=== PATIENT | female | born 1955 | race African-American/Black ===

== ENCOUNTER → 2016-05-24 | Outpatient (CLI) | payer OTHER ==
[2015-08-26 17:00] VITALS: BP 135/82
[~2016-05-24] MED LIST: ASPI-482 PO; BUPIVACAINE MPF 0.5% 10 ML VIAL for KCIC. IJ ONE; CIPR250T30 PO; CRESTOR20 MG PO; DOCU100C PO; ESOM40CA PO; FURO40TA4 PO; GABA-586 PO; INSU100C SQ; INSU100V13 SQ; IOHEXOL 300 MG/ML 50 ML VIAL. INT ART ONE; LIDOCAINE 1% Multi-Dose 20 ML VIAL. IJ ONE; LORA10CA PO; MAGN400T3 PO; MECL-51 PO; METF10002 PO; METO25TA2 PO; METR500T4 PO; OXYC-250 PO; OXYC80TA16 PO; PARI1CAP PO; POTA25TA4 PO; ROPI0.5T PO; TRAZ50TA15 PO; methylPREDNISolone ACETATE 40 MG/ML VIAL. INT ART ONE
--- NOTE | 2016-05-24 16:37 | KCIC ---
Fluoro Guided Therapeutic injection right hip. History: Reason For Study Reason: CHRONIC PAIN RT HIP / Spl. Instructions: FT 4:08 1 IMG, 2ML DEPOMEDROL, 4ML OMNI 300, 4ML MARCAINE, 4ML LIDOCAINE / History: Fluoroscopy time: 4:08 minutes Relative benefits risks and alternatives to the procedure were discussed and verbal and written informed consent was obtained. The patient was carefully prepped and draped in a sterile fashion. Lidocaine was used for local anesthesia. A 22-gauge spinal needle was advanced to the level of the hip joint at the femoral neck. Four cc of Omni 300 contrast was injected which showed the intra-articular location of the needle. The patient was then injected with 4 cc of Ropivacaine and 1 cc of Depo-Medrol. Digital image was obtained showing contrast in the joint. Impression: Therapeutic injection of the right hip. Electronically signed by: Pedro Boothe (May 24, 2016 16:36:11)
== END | disposition home or self-care (01) ==
LOC: KCIC 12:16
PROVIDERS: ATTEND Internal Medicine
DX: M25.551 Pain in right hip (principal); G89.29 Other chronic pain
CPT/HCPCS: 20610; 77002; J1030; Q9967

== ENCOUNTER → 2016-08-06 | Day surgery (SDC) | payer OTHER ==
[~2016-08-06] MED LIST changes: -BUPIVACAINE MPF 0.5% 10 ML VIAL for KCIC. IJ ONE; +DICY10CA53 PO; +DOCU-109 PO; +DOCU-150 PO; -DOCU100C PO; +DOXY100T9 PO; +ERGO500027 PO; +FAMO40TA57 PO; +FLUT9.9S NS; -IOHEXOL 300 MG/ML 50 ML VIAL. INT ART ONE; +IV RINGERS,LACTATED 1000ML 1,000 ML IV SCH; -LIDOCAINE 1% Multi-Dose 20 ML VIAL. IJ ONE; +LIDOCAINE 2% PF Vial for OR 5 ML VIAL. ONE; +LIRA0.6P2 SQ; +METF-620 PO; -METF10002 PO; +METO25TA9 PO; -METR500T4 PO; +METR500T8 PO; -OXYC-250 PO; +OXYC-328 PO; +PANT40TA3 PO; +PROPOFOL 20 ML IV ONE; -methylPREDNISolone ACETATE 40 MG/ML VIAL. INT ART ONE
--- NOTE | 2016-08-06 08:51 | PDOC1 ---
HISTORY & PHYSICAL H&P Nancy Aviles [id number] 1955 07/10/2016 02:40 PM 02/17 [employer], [employer] OUR PATIENTS COME FIRST [address] [place] [id number] Ph. [phone] Patient: Nancy Aviles Date of : 1955 Date: 07/10/2016 2:40 PM Historian: self Visit Type: Consult This 61 year old female presents for Altered bowel habits, Nausea/vomiting and Abdominal pain. History of Present Illness: 1. Altered bowel habits She is also experiencing abdominal pain, change in stool pattern and nausea. Pertinent negatives include weight gain and weight loss. Additional information : Had episode of diarrhea with several loose to runny BM for 2 weeks. Now has been constipated. She has underlying constipation. Has recurrent sever abdominal pain and nausea. 2. Nausea/vomiting Associated symptoms include abdominal pain and nausea. Pertinent negatives include weight loss. Additional information: Has frequent nausea. No vomiting. Has also recurrent abdominal pain.. 3. Abdominal pain It occurs randomly. Location is epigastric, midline. The patient describes it as bloating and sharp. Context: no pattern noted. Denies aggravating factors. Denies relieving factors. Additional information: Has frequent severe abdominal pain. Has also nausea. INTAKE COMMENTS: Intake Comments: Nurses Notes: Pt was having issues with Diarrhea now she has issues with constipation. PROBLEM LIST: Problem Description Onset Date Encounter for long-term (current) use of insulin 08/11/2014 Medicare advantage coverage 03/01/2013 Diabetes mellitus w/ neuropathy 06/12/2010 Urinary tract infectious disease 06/09/2012 Insulin use (long-term) in type 2 diabetes 08/11/2014 DM renal manif type II 08/11/2014 Slow transit constipation 09/15/2015 DM w/o complication type II, uncontrolled 08/11/2014 Generalized abdominal pain 09/15/2015 Acute bacterial sinusitis 07/05/2015 Restless legs 09/30/2011 Backache 09/30/2011 Type II or unspecified type diabetes mellitus with renal manifestations, uncontrolled 01/04/2015 Acute cystitis without hematuria 08/23/2015 Benign essential hypertension 06/12/2010 Hyperlipidemia 06/12/2010 Acquired hypothyroidism 06/12/2010 Obesity 06/12/2010 Chronic pain 06/12/2010 PAST MEDICAL/SURGICAL HISTORY (Detailed) Disease/disorder Onset Date Management Date Comments Arthrocentesis of the right shoulder joint Hysterectomy Carpal Tunnel Surgery Carpal tunnel release 2002 Arthrocentesis of the left shoulder joint Acute renal failure Arthiritis Arthritis cardiac cath 2009 normal coronaries CHF Chronic Back Syndrome Depression Diabetes DM Gastric ulcer 12/21/2010 EGD with biopsy 12/21/2010 Gastroparesis 12/21/2010 GERD Hiatal hernia 12/21/2010 Hyperlipidemia Hypertension kidney stones 2012 Mild Chronic Gastritis Mild gastritis 08/01/2011 mild stroke Morbid Obesity Osteoarthritis Renal disease Spider bite infection I & D 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 Gastroparesis. Hiatal hernia. BX: Hypertrophic gastropathy, stomach. 12/21/2010 CT ABDOMEN W/DYE 01/14/2011 Normal Imp: CT of the abdomen\\pelvis w\\IV contrast fails to reveal any significant abnormality. 01/14/2011 CT PELVIS W/DYE 01/14/2011 Normal Imp: CT of the abdomen\\pelvis w\\IV contrast fails to reveal any significant abnormality. 01/14/2011 UPPR GI SCOPE DILATE STRICTR 07/30/2011 abnormal Imp: Stenosis of the esophageal sphincter area of dilation done. Mild gastritis. 08/01/2011 Test Ordered Ordering Comments Modifier Colonoscopy 11/15/2008 Pt given written and verbal instructions with carol conde -CHAYITO EGD 11/15/2008 UPPER GI ENDOSCOPY, BIOPSY 12/21/[address] ABDOMEN W/DYE 01/14/[address] PELVIS W/DYE 01/14/2011 Gastroenterology UPPR GI SCOPE DILATE STRICTR 07/30/2011 Medications (Active): Started Medication Directions Instruction Stopped 06/03/2016 BENTYL 10 MG CAPSULE TAKE (1) CAPSULE BY MOUTH THREE TIMES DAILY. 01/11/2014 Colace 100 mg capsule take 1 capsule (100MG) by oral route every day 04/22/2016 Crestor 20 mg tablet TAKE ONE TABLET BY MOUTH DAILY. 05/22/2016 doxycycline hyclate 100 mg capsule take 1 capsule by oral route 2 times every day 02/01/2016 Flonase 50 mcg/actuation nasal spray,suspension spray 1 spray by intranasal route 2 times every day in each nostril 06/10/2016 HUMALOG 100 UNITS/ML KWIKPEN INJECT 40 UNITS SUBCUTANEOUSLY THREE TIMES DAILY 05/13/2016 LASIX 40MG TABLET TAKE (2) TABLETS BY MOUTH TWICE DAILY. 12/01/2015 LEVEMIR FLEXTOUCH 100 UNITS/ML INJECT 80 UNITS SUB-Q AT BEDTIME. 02/27/2016 LIDOCAINE OIN 5% APPLY 1-2 PUMPS (1 PUMP=1.5 GRAMS) TO THE AFFECTED AREA 3-4 TIMES DAILY 07/02/2016 LIDODERM 5% PATCH APPLY 1 PATCH TO SKIN DAILY. REMOVE AFTER 12 HOURS 06/26/2016 MAGOX 400 TABLET TAKE ONE TABLET BY MOUTH DAILY. 06/03/2016 MECLIZINE 25 MG TABLET TAKE (1) TABLET BY MOUTH THREE TIMES DAILY NEEDED 05/21/2016 NEURONTIN 300 MG CAPSULE TAKE (2) CAPSULES THREE TIMES DAILY. 11/18/2013 One Touch Delica Lancets 33 gauge CHECK BLOOD SUGARS QID AND NEEDED FOR DIABETES(250.02) 11/18/2013 One Touch Ultra System Kit CHECK BLOOD SUGARS TID AND NEEDED FOR DIABETES (250.02) 10/27/2015 OneTouch Ultra Test strips CHECK BLOOD SUGAR QID AND NEEDED FOR DIABETES (250.02) pt is insuline dependant 06/24/2016 OxyContin 80 mg tablet,crush resistant,extended release take 1 tablet by oral route every 12 hours 05/27/2016 PEPCID 40MG TAKE ONE TABLET DAILY AT BEDTIME 06/24/2016 Percocet 10 mg-325 mg tablet take 2 tablet by ORAL route every 6 hours as needed not to exceed 8 tablets per 24hrs 05/01/2016 POTASSIUM CL ER 20 MEQ TABLET TAKE (2) TABLETS BY MOUTH TWICE DAILY. 07/02/2016 PROTONIX 40 MG TABLET EC TAKE [1] TABLET BY MOUTH ONCE DAILY 05/27/2016 REQUIP 0.5 MG TABLET TAKE ONE TABLET 1 TO 3 HOURS BEFORE BEDTIME 05/16/2016 TOPROL XL 25 MG TABLET SA TAKE ONE TABLET BY MOUTH DAILY. 05/07/2016 TRAZODONE 50 MG TABLET TAKE 1 TABLET EVERY DAY AFTER A MEAL. 02/15/2016 VICTOZA 3-YANNA 18 MG/3 ML PEN INJECT 0.3 ML (1.8 MG) SUB-Q ONCE DAILY DIRECTED. 06/21/2016 VIT D2 1.25 MG (50,000 UNIT) TAKE 1 CAPSULE BY MOUTH "WEEKLY". 08/09/2015 Zyrtec 10 mg capsule take 1 each by oral route every day for 1 morning Allergies: Ingredient Reaction Medication Name Comment LISINOPRIL cough SULFA (SULFONAMIDE ANTIBIOTICS) itching, swelling PENICILLINS itch, swell ASPIRIN itching REVIEW OF SYSTEMS System Neg/Pos Details Constitutional Negative Chills, fever, malaise, weight gain and weight loss. ENMT Negative Sore throat. Eyes Negative Double vision. Respiratory Negative Dyspnea and wheezing. Cardio Negative Chest pain and irregular heartbeat/palpitations. GI Positive Abdominal pain, Change in stool pattern, Nausea, See HPI. GI Negative See HPI. Negative Dysuria and hematuria. Endocrine Negative Cold intolerance and heat intolerance. Psych Negative Anxiety. Integumentary Negative Hives and rash. MS Negative Joint pain. Scott/Lymph Negative Easy bleeding and easy bruising. Allergic/Immuno Negative Food allergies. VITAL SIGNS Time BP mm/Hg Pulse /min Resp /min Temp F Ht ft Ht in Ht cm Wt lb Wt kg BMI kg/ m2 BSA m2 O2 Sat% 2:33 PM 126/80 98 16 98.0 5.0 7.00 170.18 352.80 160.027 55.26 98 Time Measured by 2:33 PM Henny Turcios PHYSICAL EXAM: Exam Findings Details Constitutional Normal Well developed. Eyes Normal Conjunctiva - Right: Normal, Left: Normal. Sclera - Right: Normal, Left: Normal. Nasopharynx Normal Lips/teeth/gums - Normal. Neck Exam Normal Inspection - Normal. Thyroid gland - Normal. Respiratory Normal Inspection - Normal. Auscultation - Normal. Cardiovascular Normal Regular rate and rhythm. No murmurs, gallops, or rubs. Vascular Normal Pulses - Carotids: Normal, Femoral: Normal, Dorsalis pedis: Normal. Abdomen Normal Inspection - Normal. Anterior palpation - No guarding. No abdominal tenderness. No hepatic enlargement. No splenic enlargement. No hernia. No Ascites. Skin Normal Inspection - Normal. Extremity Normal No edema. Psychiatric Normal Oriented to time, place, person, and situation. Appropriate mood and effect. Assessment/Plan # Detail Type Description 1. Assessment Change in bowel habit (R19.4). Patient Plan schedule colonoscopy at [facility] Plan Orders Further diagnostic evaluations ordered today include(s) Colonoscopy to be performed today. 2. Assessment History of colon polyps (Z86.010). 3. Assessment Pain of upper abdomen (R10.10). Patient Plan schedule EGD at [facility] Plan Orders Further diagnostic evaluations ordered today include(s) EGD to be performed today. She is to schedule a follow-up visit with Cisco Waite MD upon completion of work-up Electronically signed by: Cisco Waite MD 07/10/2016 02:54 PM Document generated by: Cisco Waite 07/10/2016 02:54 PM Tacos Lorenzana MD, Family Practice; Chucho Blanco MD Internal Medicine; Sean Vera MD, Internal Medicine; Narendra Waite MD Internal Medicine; Cisco Waite MD, Gastroenterology; Pradeep Molina MD, Rheumatology, S. Jian Blount, Physical Medicine/Rehab JGlenda Darby APRN ------ 08/06/16 Patient seen and examined. No change in H&P. CISCO WAITE MD Aug 06, 2016 08:51
--- NOTE | 2016-08-06 10:25 | PDOC4 ---
GI OP Report - Dr. Caballero Date/Time DATE: 08/06/16 TIME: 10:23 Attending Physician Cisco Caballero MD Referring Physician Indications Upper abdominal pain, Nausea Pre-Op See the Anesthesia note for documentation of the administered medications Procedures Upper GI endoscopy Findings - Normal esophagus. - Normal stomach. - Normal examined duodenum. - No specimens collected. Plan - Patient has a contact number available for emergencies. The signs and symptoms of potential delayed complications were discussed with the patient. Return to normal activities tomorrow. Written discharge instructions were provided to the patient. - Discharge patient to home. - Resume regular diet. - Return to my office as needed. CISCO CABALLERO MD Aug 06, 2016 10:25
--- NOTE | 2016-08-06 10:34 | PDOC4 ---
GI OP Report - Dr. Caballero Date/Time DATE: 08/06/16 TIME: 10:32 Attending Physician Cisco Caballero MD Referring Physician Indications Change in bowel habits Pre-Op See the Anesthesia note for documentation of the administered medications Procedures Colonoscopy Findings - Two 5 to 6 mm polyps in the descending colon, removed with a cold snare. Resected and retrieved. Biopsied. - One 12 mm polyp in the rectum, removed with a hot snare. Resected and retrieved. - Diverticulosis in the sigmoid colon. Plan - Discharge patient to home (ambulatory). - Patient has a contact number available for emergencies. The signs and symptoms of potential delayed complications were discussed with the patient. Return to normal activities tomorrow. Written discharge instructions were provided to the patient. - Resume regular diet. - Continue present medications. - Await pathology results. - Repeat colonoscopy in 3 - 5 years for surveillance based on pathology results. - Return to my office in 2 weeks. CISCO CABALLERO MD Aug 06, 2016 10:34
[2016-08-06 10:45] VITALS: BP 119/60
--- NOTE | 2016-08-07 11:06 | PATHOLOGY ---
PATHOLOGY REPORT * * * * * * * * FINAL DIAGNOSIS: A. Colonic mucosa "polypectomy descending colon": - Fragments of tubular adenoma. - There is no evidence of high grade dysplasia or malignancy. B. Colonic mucosa "proximal rectum polyp, biopsy": - Tubular adenoma. - There is no evidence of high grade dysplasia or malignancy. ([facility]:mm; d/t: 08/07/2016) REPORT ELECTRONICALLY SIGNED BY: Sumeet Balderrama M.D. DATE/TIME: 08/07/2016 11:05 * * * * * * * * GROSS PATHOLOGY: A. Received in formalin labeled "Nancy Aviles, descending colon polyp," are two segments of troncoso soft tissue measuring 0.3 and 0.4 cm in maximum dimension. The specimen is submitted entirely in cassette A1. B. Received in formalin labeled "proximal rectum polyp," is a segment of troncoso soft tissue measuring 0.8 cm in maximum dimension. The specimen is submitted entirely in cassette B1. ([facility]; 08/06/16) INITIAL CPT CODE(S): A; 99136 B; 62160 Professional services performed [place] [address] Technical services performed by [facility] at [address] [place] [address] [address] [address]. SPECIMEN(S) RECEIVED: A.Polypectomy descending colon B.Proximal rectum polyp CLINICAL HISTORY: Abdominal pain PATIENT: NANCY AVILES /AGE: 5 1955 (Age: 61) PATIENT #: [id number] ALT CASE #: SPECIMEN COLLECTION DATE: 08/06/2016 SPECIMEN RECEIVED DATE: 08/06/2016 [facility] - [address] [place] [address] - PHONE: [phone] * * * END OF REPORT * * *
== END | disposition home or self-care (01) ==
LOC: ENDOS 08:20
PROVIDERS: ATTEND Internal Medicine Gastroenterology
DX: D12.4 Benign neoplasm of descending colon (principal); K62.1 Rectal polyp; K57.30 Diverticulosis of large intestine without perforation or abscess without bleeding; E78.00 Pure hypercholesterolemia, unspecified; I10 Essential (primary) hypertension; J44.9 Chronic obstructive pulmonary disease, unspecified; E66.9 Obesity, unspecified; Z68.44 Body mass index [BMI] 60.0-69.9, adult; K21.9 Gastro-esophageal reflux disease without esophagitis; M19.90 Unspecified osteoarthritis, unspecified site; E03.9 Hypothyroidism, unspecified; E11.9 Type 2 diabetes mellitus without complications; F41.9 Anxiety disorder, unspecified; F32.9 Major depressive disorder, single episode, unspecified; Z90.710 Acquired absence of both cervix and uterus; Z98.51 Tubal ligation status; Z87.39 Personal history of other diseases of the musculoskeletal system and connective tissue; Z72.89 Other problems related to lifestyle; Z86.14 Personal history of Methicillin resistant Staphylococcus aureus infection; Z88.6 Allergy status to analgesic agent; Z88.0 Allergy status to penicillin; Z88.2 Allergy status to sulfonamides
CPT/HCPCS: 45385; 82962; 88305; J2704

== ENCOUNTER 2016-10-09 19:45 | Emergency (ER) | payer OTHER ==
[~2016-10-09] VITALS: Ht 172.7 cm; Wt 166.0 kg
[~2016-10-09 19:45] MED LIST changes: -IV RINGERS,LACTATED 1000ML 1,000 ML IV SCH; -LIDOCAINE 2% PF Vial for OR 5 ML VIAL. ONE; -PROPOFOL 20 ML IV ONE
[2016-10-09 19:57] VITALS: BP 141/62
[2016-10-09] MEDS ORDERED: IV NORMAL SALINE 1000ML BAG 1,000 ML IV SCH (20:35)
[2016-10-09] MEDS ORDERED: ONDANSETRON PF 4 MG/2 ML VIAL. IV ONE (20:45)
[2016-10-09] MEDS ORDERED: MORPHINE SULFATE 4 MG/ML DISP.SYRIN. IV/SQ PRN (20:45)
[2016-10-09 20:47] LABS: BASO % 1 % (0-3); EOS % 1 % (0-3); HEMOGLOBIN 13.2 g/dL (12.0-15.5); LYMPH # 2.7 x10^3/uL (1.0-4.8); LYMPH % 38 % (24-48); MEAN CORPUSCULAR HEMOGLOBIN 33 pg (25-35); MEAN CORPUSCULAR HGB CONC 33 g/dL (31-37); MEAN CORPUSCULAR VOLUME 99 fL (79-100); MONO % 6 % (0-9); NEUT % 54 % (31-73); PLATELET COUNT 207 x10^3/uL (140-400); RED BLOOD COUNT 4.06 x10^6/uL (3.50-5.40); RED CELL DISTRIBUTION WIDTH 15.8 % (11.5-14.5); WHITE BLOOD COUNT 7.2 x10^3/uL (4.0-11.0)
[2016-10-09 20:49] LABS: BILIRUBIN,URINE NEGATIVE (NEG); GLUCOSE,URINE NEGATIVE (NEG); NITRITE,URINE NEGATIVE (NEG); PROTEIN,URINE NEGATIVE (NEG-TRACE); UROBILINOGEN,URINE 0.2 mg/dL (0.2 mg/dL)
[2016-10-09 20:55] LABS: BACTERIA,URINE MODERATE /HPF (0-FEW); RBC,URINE 0 /HPF (0-2); SQUAMOUS EPITHELIAL CELL,UR MOD /LPF
[2016-10-09 20:56] LABS: CREATININE 1.4 mg/dL (0.6-1.0); GFR 46.1; POTASSIUM 3.8 mmol/L (3.5-5.1)
--- NOTE | 2016-10-09 20:58 | PHYS DOC ---
Past Medical History Past Medical History: CHF, Diabetes-Type I, Hypertension Past Surgical History: Hysterectomy, Tubal ligation, Other Additional Past Surgical Histo: carpall tunnel Alcohol Use: Occasionally Drug Use: None Adult General Chief Complaint Chief Complaint: ABDOMINAL PAIN HPI HPI Patient is a 61 year old female who presents with complaint of right-sided flank pain. Patient states that the symptoms started approximately 2 months ago and have been progressively worsening over the past several days. Patient states that the pain originally started in her right flank but states that she has been having worsening problems with pain radiating towards her right low back since onset of symptoms. Patient has history of chronic low back pain and is currently on pain medications for treatment. Patient states that her pain typically worsens with walking and movement. Patient denies association of pain with bowel movement or urination. Patient has had no associated nausea, vomiting , or fever associated with her symptoms. The patient rates her pain currently as 9 out of 10. Review of Systems Review of Systems Constitutional: Denies fever or chills [] Eyes: Denies change in visual acuity, redness, or eye pain [] HENT: Denies nasal congestion or sore throat [] Respiratory: Denies cough or shortness of breath [] Cardiovascular: Denies chest pain or edema [] GI: Denies abdominal pain, nausea, vomiting, bloody stools or diarrhea [] : Denies dysuria or hematuria [] Musculoskeletal: Right flank pain, right-sided back pain [] Integument: Denies rash or skin lesions [] Neurologic: Denies headache, focal weakness or sensory changes [] Current Medications Current Medications Current Medications Medications (Trade) Dose Ordered Sig/Priyanka Start Time Stop Time Status Last Admin Dose Admin Morphine Sulfate 4 mg PRN Q15MIN PRN 10/09/16 20:45 10/10/16 20:44 10/09/16 20:52 4 MG Ondansetron HCl (Zofran) 4 mg 1X ONCE 10/09/16 20:45 10/09/16 20:46 DC 10/09/16 21:26 4 MG Sodium Chloride 1,000 ml @ 100 mls/hr Q10H 10/09/16 20:35 10/10/16 06:34 10/09/16 20:51 100 MLS/HR Allergies Allergies Allergies Coded Allergies Type Severity Reaction Last Updated Verified Penicillins Allergy Intermediate Itching 08/06/16 Yes Sulfa (Sulfonamide Antibiotics) Allergy Intermediate Itching/swelling 08/06/16 Yes aspirin Adverse Reaction Intermediate Itching/High doses only 08/06/16 Yes lisinopril Adverse Reaction Intermediate Cough 08/06/16 Yes Physical Exam Physical Exam Constitutional: Alert, afebrile, morbidly obese, appears in minimal discomfort. [] HENT: Normocephalic, atraumatic, bilateral external ears normal, oropharynx moist, no oral exudates, nose normal. [] Eyes: PERRLA, EOMI, conjunctiva normal, no discharge. [] Neck: Normal range of motion, no tenderness, supple, no stridor. [] Cardiovascular:Heart rate regular rhythm, no murmur [] Lungs & Thorax: Bilateral breath sounds clear to auscultation [] Abdomen: Bowel sounds normal, soft, minimal right-sided upper and lower abdominal tenderness to palpation with no guarding or rebound tenderness, no masses, no pulsatile masses. [] Skin: Warm, dry, no erythema, no rash. [] Back: No midline tenderness, mild paraspinous muscle tenderness in the mid and lower lumbar region, no CVA tenderness. [] Extremities: No tenderness, no cyanosis, no clubbing, ROM intact, no edema. [] Neurologic: Alert and oriented X 3, normal motor function, normal sensory function, no focal deficits noted. [] Current Patient Data Vital Signs Vital Signs Date Time Temp Pulse Resp B/P (MAP) Pulse Ox O2 Delivery O2 Flow Rate FiO2 10/09/16 20:52 95 Room Air 10/09/16 19:57 98.8 95 20 141/62 (88) 98.8 Lab Values Laboratory Tests Test 10/09/16 20:00 White Blood Count 7.2 x10^3/uL (4.0-11.0) Red Blood Count 4.06 x10^6/uL (3.50-5.40) Hemoglobin 13.2 g/dL (12.0-15.5) Hematocrit 40.0 % (36.0-47.0) Mean Corpuscular Volume 99 fL (79-100) Mean Corpuscular Hemoglobin 33 pg (25-35) Mean Corpuscular Hemoglobin Concent 33 g/dL (31-37) Red Cell Distribution Width 15.8 % (11.5-14.5) H Platelet Count 207 x10^3/uL (140-400) Neutrophils (%) (Auto) 54 % (31-73) Lymphocytes (%) (Auto) 38 % (24-48) Monocytes (%) (Auto) 6 % (0-9) Eosinophils (%) (Auto) 1 % (0-3) Basophils (%) (Auto) 1 % (0-3) Neutrophils # (Auto) 3.9 x10^3uL (1.8-7.7) Lymphocytes # (Auto) 2.7 x10^3/uL (1.0-4.8) Monocytes # (Auto) 0.4 x10^3/uL (0.0-1.1) Eosinophils # (Auto) 0.1 x10^3/uL (0.0-0.7) Basophils # (Auto) 0.0 x10^3/uL (0.0-0.2) Urine Collection Type Unknown Urine Color Yellow Urine Clarity Clear Urine pH 5.0 Urine Specific [place] 1.010 Urine Protein Negative mg/dL (NEG-TRACE) Urine Glucose (UA) Negative mg/dL (NEG) Urine Ketones (Stick) Negative mg/dL (NEG) Urine Blood Trace (NEG) Urine Nitrite Negative (NEG) Urine Bilirubin Negative (NEG) Urine Urobilinogen Dipstick 0.2 mg/dL (0.2 mg/dL) Urine Leukocyte Esterase Negative (NEG) Urine RBC 0 /HPF (0-2) Urine WBC 1-4 /HPF (0-4) Urine Squamous Epithelial Cells Mod /LPF Urine Bacteria Moderate /HPF (0-FEW) Urine Mucus Mod /LPF Sodium Level 138 mmol/L (136-145) Potassium Level 3.8 mmol/L (3.5-5.1) Chloride Level 102 mmol/L (98-107) Carbon Dioxide Level 30 mmol/L (21-32) Anion Gap 6 (6-14) Blood Urea Nitrogen 9 mg/dL (7-20) Creatinine 1.4 mg/dL (0.6-1.0) H Estimated GFR (Cockcroft-Gault) 46.1 BUN/Creatinine Ratio 6 (6-20) Glucose Level 249 mg/dL (70-99) H Calcium Level 9.0 mg/dL (8.5-10.1) Total Bilirubin 0.6 mg/dL (0.2-1.0) Aspartate Amino Transferase (AST) 25 U/L (15-37) Alanine Aminotransferase (ALT) 27 U/L (14-59) Alkaline Phosphatase 121 U/L (46-116) H Total Protein 7.7 g/dL (6.4-8.2) Albumin 3.6 g/dL (3.4-5.0) Albumin/Globulin Ratio 0.9 (1.0-1.7) L Lipase 108 U/L (73-393) Laboratory Tests 10/09/16 20:00 Laboratory Tests 10/09/16 20:00 EKG EKG Not performed [] Radiology/Procedures Radiology/Procedures [facility] [address] [place], [place] [id number] IMAGING REPORT Signed PATIENT: JAXSON PEREA ACCOUNT: [id number] : 1955 LOCATION: ER AGE: 61 SEX: F EXAM STATUS: REG ER ORD. PHYSICIAN: JOSE MARIA DUNN MD REASON: right flank pain PROCEDURE: CT ABDOMEN PELVIS WO CONTRAST History: Worsening right flank and lower quadrant pain for several days. Comparison: CT abdomen pelvis December 14, 2010. Technique: CT of the abdomen and pelvis was performed without intravenous or oral contrast. Exposure: One or more of the following individualized dose reduction techniques were utilized for this examination: 1. Automated exposure control 2. Adjustment of the mA and/or kV according to patient size 3. Use of iterative reconstruction technique Findings: Evaluation of solid organs is limited by lack of intravenous contrast. Evaluation of enteric structures may be limited by lack of oral contrast. There is significant quantum mottle artifact secondary to patient's large body habitus. Old granulomatous disease of the liver and spleen can be seen. Pancreas, gallbladder, and bilateral adrenal glands unremarkable. No bowel obstruction or inflammation is seen. The uterus is absent. No bowel obstruction or inflammation is seen. Colonic diverticulosis is noted, but no diverticulitis appreciated. Fat-containing umbilical hernia is seen. There may be 2 or 3 punctate nonobstructing renal collecting system stones involving each kidney. There is no evidence of the ureteral stone or obstruction. Urinary bladder is unremarkable. No free air or free fluid is seen in the abdomen or pelvis. Impression: 1. Limited examination as described above. 2. Suspect bilateral nonobstructive punctate nephrolithiasis. 3. No acute abnormality identified in the abdomen or pelvis. Electronically signed by: Chucho Salamanca MD (10/09/2016 9:17 PM) [facility] DICTATED and SIGNED BY: CHUCHO SALAMANCA MD DATE: 10/09/162110 CC: JOSE MARIA DUNN MD; OSMAN VERDUZCO MD ~ [] Course & Med Decision Making Course & Med Decision Making Pertinent Labs and Imaging studies reviewed. (See chart for details) The patient was given IV morphine, Zofran, and IV fluids in the emergency department. The patient's lab work and CT imaging did not reveal acute intra- abdominal pathology for patient's complaints. I suspect that the patient's symptoms are likely due to musculoskeletal pain. The patient was advised to continue on her home pain medications and patient was given a prescription for Medrol Dosepak to help with inflammation. Advised follow-up with patient's primary doctor in 2-3 days and return to emergency department for any worsening symptoms. Patient voiced understanding and in agreement with treatment plan. Dragon Disclaimer Dragon Disclaimer This electronic medical record was generated, in whole or in part, using a voice recognition dictation system. Departure Departure Impression: Primary Impression: Flank pain Additional Impression: Back pain Disposition: 01 HOME, SELF-CARE Condition: IMPROVED Referrals: OSMAN VERDUZCO MD (PCP) Patient Instructions: Back Pain, Adult, Flank Pain Additional Instructions: Follow-up to primary doctor in the next 2-3 days for reevaluation. Return to emergency department for any worsening symptoms. Scripts Methylprednisolone (MEDROL) 4 Mg Tab.ds.pk 1 PKG PO UD, #1 PKG Prov: JOSE MARIA DUNN MD 10/09/16 Problem Qualifiers Additional Impression: Back pain Back pain location: low back pain Chronicity: chronic Back pain laterality : right Sciatica presence: without sciatica Qualified Codes: M54.5 - Low back pain; G89.29 - Other chronic pain JOSE MARIA DUNN MD Oct 09, 2016 20:58
[2016-10-09 21:02] LABS: ALBUMIN 3.6 g/dL (3.4-5.0); ALBUMIN/GLOBULIN RATIO 0.9 (1.0-1.7); TOTAL BILIRUBIN 0.6 mg/dL (0.2-1.0); TOTAL PROTEIN 7.7 g/dL (6.4-8.2)
--- NOTE | 2016-10-09 21:21 | RAD ---
History: Worsening right flank and lower quadrant pain for several days. Comparison: CT abdomen pelvis December 14, 2010. Technique: CT of the abdomen and pelvis was performed without intravenous or oral contrast. Exposure: One or more of the following individualized dose reduction techniques were utilized for this examination: 1. Automated exposure control 2. Adjustment of the mA and/or kV according to patient size 3. Use of iterative reconstruction technique Findings: Evaluation of solid organs is limited by lack of intravenous contrast. Evaluation of enteric structures may be limited by lack of oral contrast. There is significant quantum mottle artifact secondary to patient's large body habitus. Old granulomatous disease of the liver and spleen can be seen. Pancreas, gallbladder, and bilateral adrenal glands unremarkable. No bowel obstruction or inflammation is seen. The uterus is absent. No bowel obstruction or inflammation is seen. Colonic diverticulosis is noted, but no diverticulitis appreciated. Fat-containing umbilical hernia is seen. There may be 2 or 3 punctate nonobstructing renal collecting system stones involving each kidney. There is no evidence of the ureteral stone or obstruction. Urinary bladder is unremarkable. No free air or free fluid is seen in the abdomen or pelvis. Impression: 1. Limited examination as described above. 2. Suspect bilateral nonobstructive punctate nephrolithiasis. 3. No acute abnormality identified in the abdomen or pelvis. Electronically signed by: Chucho Martins MD (10/09/2016 9:17 PM) [id number]
[2016-10-09] MEDS ORDERED: METH4TAB2 PO (21:28)
== END 2016-10-09 21:58 | disposition home or self-care (01) ==
LOC: ER 19:45
DX: R10.31 Right lower quadrant pain (principal); R10.11 Right upper quadrant pain; G89.29 Other chronic pain; M54.5 Low back pain; I11.0 Hypertensive heart disease with heart failure; I50.9 Heart failure, unspecified; E10.9 Type 1 diabetes mellitus without complications; E66.01 Morbid (severe) obesity due to excess calories; Z88.0 Allergy status to penicillin; Z90.710 Acquired absence of both cervix and uterus; Z88.2 Allergy status to sulfonamides; Z88.6 Allergy status to analgesic agent; Z88.8 Allergy status to other drugs, medicaments and biological substances; Z68.43 Body mass index [BMI] 50.0-59.9, adult
CPT/HCPCS: 36415; 74176; 80053; 81001; 83690; 85025; 87086; 96361; 96374; 96375; 99285; J2270; J2405; J7030

== ENCOUNTER → 2016-11-13 | Outpatient (CLI) | payer OTHER ==
[~2016-11-13] MED LIST changes: +METH4TAB2 PO; +METO-239 PO; -METO25TA9 PO
--- NOTE | 2016-11-14 07:35 | PAIN ---
DATE OF SERVICE: 11/13/2016 INITIAL CONSULTATION FOR PAIN CLINIC CHIEF COMPLAINT: Low back and bilateral lower extremity pain, right greater than left. HISTORY OF PRESENT ILLNESS: The patient is a 61-year-old female who presents for initial evaluation with a chief complaint of low back and bilateral lower extremity pain, worse on the right than the left, pain radiating across the back into the posterior gluteus, posterolateral thigh, lateral anterior thighs, posterior calves and into the feet, worse on the right than the left, also in the back of the right knee. The patient reports this has been going on for about 3-4 years, gradually increased not a result of any specific injury or accident that she is aware of. Has been increasing ____ with time, much worse over the past year or so, becoming more constant and throbbing, radiating down the lower extremities. It is described as cramping and aching at day and night. The patient reports it is worse with standing, walking and changing positions. She was initially using a walker at all times but has weaned herself down to a cane. Still uses a walker when she is in her own home. The patient reports it awakens her from sleep at least 3-4 times at night. She can easily reposition and get back to sleep. She reports that it does affect her bowel and bladder control but only that she has some urgency since and no actual incontinence. The patient again is using a cane, sometimes a walker at home to ambulate as it affects her ability to walk significantly. The patient has had previous counseling, chiropractic treatments, physical therapies in the past, which were not significantly helpful. The patient is taking Percocet as well as extended release oxycodone and has tried gabapentin, which was not helpful. The oxycodone products have been helpful to some degree about 20-30%. The patient did not have any recent imaging or studies of her low back and has been told she has degenerative disk disease as well as spinal stenosis in the distant past. The patient reports no loss of motor function in the lower extremities but significant fatigability, especially in the right lower extremity with radiating pain as she described in L5-S1 dermatome. The patient's disability rating from 0 to 10, 10 being the worst, is a 10 with recreation; 8 with family and home responsibilities; 7 with social activities, sexual behavior, self care and life support activities; and 10 with occupation activities. PAST MEDICAL HISTORY: Significant for diabetes, non-insulin dependent; hypertension; home oxygen use 2 liters at night only; dizziness; over 100-pound weight loss; and arthritis. PREVIOUS SURGERIES: Include bilateral cataract extractions in 2015, bilateral carpal tunnel repair and hysterectomy in 1980s. CURRENT MEDICATIONS: Include Lasix, magnesium, meclizine, trazodone, oxycodone, Crestor, potassium, insulin, Claritin, gabapentin, oxycodone as Percocet, Levemir, Requip, vitamin D2, Victoza, Protonix, metoprolol, Colace, fluticasone nasal spray and Pepcid. ALLERGIES: The patient is allergic to ASPIRIN, LISINOPRIL, SULFA AND PENICILLIN. FAMILY HISTORY: Significant for diabetes, heart problems and high blood pressure. SOCIAL HISTORY: The patient drinks alcohol only very occasionally about twice a month at the most, does not smoke and lives at home with 1 child in the home locally in [place], [place]. REVIEW OF SYSTEMS: The patient's review of systems is positive for those items mentioned in the history of present illness. All systems reviewed and otherwise negative. It is complete, full and well documented on the patient's chart. PHYSICAL EXAMINATION: VITAL SIGNS: Today, blood pressure 140/69, pulse 84, respirations 16, temperature is 97.9 degrees Fahrenheit. Height is 5 feet 8 inches. Weight is 351 pounds. GENERAL: The patient is awake, alert, oriented and appropriate, very pleasant demeanor. HEENT: Head shows normocephalic and atraumatic. Extraocular movements are intact and symmetrical. Oral cavity: Mucous membranes moist and pink. Dentition is intact. NECK: Shows anterior throat supple without palpable lymphadenopathy noted. Swallow reflex is symmetrical. CHEST: Shows normal on inspection. Breath sounds are clear to auscultation bilaterally. No rales, rhonchi or wheezes are auscultated. HEART: Shows S1 and S2 clear. Murmurs are not auscultated. ABDOMEN: Obese, soft, nontender, nondistended. No palpable organomegaly is noted. No rebound or guarding demonstrated. MUSCULOSKELETAL: Back shows spine grossly in the midline. Normal-appearing thoracic kyphosis and cervical lordotic curvature as well as some mild flattening of lumbar lordotic curvature. No previous bruises, lesions, rashes or scars are noted. Lumbar paraspinous musculature shows symmetrical on inspection and with palpation shows some [id number] tenderness in the lumbar paraspinous muscles bilaterally throughout the upper, middle and lower distribution diffusely without radiation. No tenderness over the spinous processes, sacrum or sacroiliac regions. The patient does show good rotation and motion of the lumbar spine both laterally greater than 10 degrees right and left as well as extension greater than 10 degrees, forward flexion 45 degrees without significant pain reported. Lower extremities show deep tendon reflexes at 1+ in the patellar and tendo calcaneus tendons and are equal. Motor exam is strong with dorsiflexion and extension rated about 4 on a scale of 5 but equal and symmetrical. This is true with quadriceps and hamstring flexion 4/5 and equal bilaterally as well. Peripheral pulses are 1+ posterior tibial and dorsalis pedis pulses. No peripheral edema is noted. No clubbing, no cyanosis. Lower extremities are warm and dry to touch and equal in color and appearance. Straight leg raise noted to be positive bilaterally, worse on the right at about 30 degrees and on the left at about 45 degrees, each is decreased with knee flexion but not completely relieved. Gaenslen's and Amor's maneuvers are negative bilaterally. The patient is able to stand and has difficulty trying to stand on her toes, and she does have some difficulty getting out of the chair using the arms of the chair and her cane. She has today a 4-point cane to help her stand and then ambulate. She is significantly favoring her right lower extremity and has a cane in her left hand with a limping gait. IMPRESSION: This is a 61-year-old female with: 1. Several-year history of low back and bilateral lower extremity pain, worse on the right in a radicular fashion following an L5-S1 dermatome pain reported. 2. Obesity. 3. Diabetes. 4. Arthritis. PLAN: Options were discussed with the patient including conservative medical management, physical therapy and interventional techniques. We will check an MRI scan as it has been several years since she has had one of her low back by her report, and we will preauthorize the patient for a lumbar epidural steroid injection with significant radicular qualities as noted in the L5-S1 distribution, again both legs but worse on the right and more symptomatic with walking on the right. We discussed the procedure using description as well as anatomical models to describe the procedure. Await for preauthorization, the patient will return, and plan on lumbar epidural steroid injection at that time. CAMELIA PEREA MD DR: AMAN/jerome JOB#: [id number] / [id number]
== END | disposition home or self-care (01) ==
LOC: PNCL 12:59
PROVIDERS: ATTEND Anesthesiology
DX: M48.00 Spinal stenosis, site unspecified (principal); I10 Essential (primary) hypertension; E11.9 Type 2 diabetes mellitus without complications; M25.561 Pain in right knee; E66.9 Obesity, unspecified; G56.03 Carpal tunnel syndrome, bilateral upper limbs; Z79.4 Long term (current) use of insulin; Z88.0 Allergy status to penicillin; Z99.81 Dependence on supplemental oxygen
CPT/HCPCS: 99214

== ENCOUNTER → 2017-02-21 | Outpatient (CLI) | payer OTHER | END | disposition home or self-care (01) | LOC: KCIC 12:37 | DX: R91.8 Other nonspecific abnormal finding of lung field (principal); R05 Cough; R50.9 Fever, unspecified | CPT/HCPCS: 70210; 71046 ==

== ENCOUNTER → 2017-03-10 | Outpatient (CLI) | payer OTHER | END | disposition home or self-care (01) | LOC: KCIC CT 11:43 | DX: J31.0 Chronic rhinitis (principal); M85.2 Hyperostosis of skull | CPT/HCPCS: 70486 ==

== ENCOUNTER → 2017-07-28 | Outpatient (CLI) | payer OTHER | END | disposition home or self-care (01) | LOC: KCIC MRI 14:28 | DX: Z12.31 Encounter for screening mammogram for malignant neoplasm of breast (principal); M51.36 Other intervertebral disc degeneration, lumbar region; M48.061 Spinal stenosis, lumbar region without neurogenic claudication | CPT/HCPCS: 72148; 77067 ==

== ENCOUNTER → 2017-09-04 | Outpatient (CLI) | payer OTHER | END | disposition home or self-care (01) | LOC: US 09:53 | DX: M79.89 Other specified soft tissue disorders (principal); I11.0 Hypertensive heart disease with heart failure; I50.9 Heart failure, unspecified; E11.9 Type 2 diabetes mellitus without complications; J44.9 Chronic obstructive pulmonary disease, unspecified; K21.9 Gastro-esophageal reflux disease without esophagitis; E66.9 Obesity, unspecified; E03.9 Hypothyroidism, unspecified | CPT/HCPCS: 93971 ==

== ENCOUNTER → 2017-10-13 | Outpatient (CLI) | payer OTHER ==
[~2017-10-13] MED LIST changes: +CETI10TA22 PO; +DICY10CA3 PO; +HYDR50TA6 PO; +LACT20SO PO; +LIDO700A39 TP; +LOSA25TA4 PO; -METF-620 PO; +METF10003 PO; +POTA20TA82 PO; +TIZA4TAB PO; +TRAZ-85 PO; -TRAZ50TA15 PO
--- NOTE | 2017-10-13 16:05 | EKG ---
[facility] [address] [place] [address] Test Date: 2017-10-13 Test Time: 15:58:03 Pat Name: JAXSON PEREA Department: Room: Gender: F Applied Anthropologist: BRODIE : 1955 Requested By: SERGIO DARBY Order Number: [id number] Reading MD: Gene Maier MD Measurements Intervals [place] Rate: 66 P: 34 LA: 178 QRS: 5 QRSD: 78 T: 26 QT: 388 QTc: 408 Interpretive Statements SINUS RHYTHM Electronically Signed On 10-14-2017 10:37:29 CDT by Gene Maier MD
== END | disposition home or self-care (01) ==
LOC: SURGPAT 13:30
PROVIDERS: ATTEND Neurological Surgery
DX: Z01.818 Encounter for other preprocedural examination (principal); I11.0 Hypertensive heart disease with heart failure; I50.9 Heart failure, unspecified; J44.9 Chronic obstructive pulmonary disease, unspecified; E11.9 Type 2 diabetes mellitus without complications; E78.00 Pure hypercholesterolemia, unspecified; Z79.4 Long term (current) use of insulin; Z86.14 Personal history of Methicillin resistant Staphylococcus aureus infection; Z87.39 Personal history of other diseases of the musculoskeletal system and connective tissue; Z88.0 Allergy status to penicillin; Z88.2 Allergy status to sulfonamides; Z88.8 Allergy status to other drugs, medicaments and biological substances; Z88.6 Allergy status to analgesic agent
CPT/HCPCS: 87641; 93005

== ENCOUNTER 2017-10-27 07:04 | Observation (INO) | payer OTHER ==
[2017-10-27] VITALS (8 sets, daily range): BP systolic 117–138; BP diastolic 60–82
[~2017-10-27] VITALS: Ht 172.7 cm; Wt 152.9 kg
--- NOTE | 2017-10-27 06:46 | PREOP HP ---
DATE OF SERVICE: 10/27/2017 HISTORY OF PRESENT ILLNESS: The patient is a pleasant 62-year-old who is having difficulty with low back pain, primarily left lower extremity pain. Most of that pain is in her left hip and down her lateral thigh and leg. She rates her pain is a 5/10 now and says that it can reach a 10/10 at its worse. She has had many years of back pain. Her leg involvement started months ago. The mornings and walking increases her pain. Sitting helps her. She said she has seen 2 neurosurgeons in the past, but neither recommended surgery for her. She has been in pain management with limited benefit. She uses a cane and a walker. PAST MEDICAL HISTORY: Arthritis, gout, hypertension, chest pain, kidney problems, MRSA, RA, diabetes. PAST SURGICAL HISTORY: Bilateral CTR, 2001. FAMILY HISTORY: Cancer, diabetes, hypertension and heart disease. SOCIAL HISTORY: Retired. . Rarely exercises. Denies substance abuse. Denies tobacco use. Drinks alcohol 1-2 times per month. Drinks coffee, soda and tea. ALLERGIES: ASPIRIN, PENICILLIN, SULFA AND LISINOPRIL. CURRENT MEDICATIONS: Lidocaine, Crestor, Zyrtec, Toprol, tizanidine, Singulair, Lidoderm, hydrochlorothiazide, furosemide, potassium, Levemir, Tessalon, lactulose, ergocalciferol, magnesium oxide, Pepcid, meclizine, Requip, promethazine, gabapentin, Protonix, losartan, aspirin 81 mg, dicyclomine, Victoza, trazodone, Percocet. REVIEW OF SYSTEMS: A 12-point review of systems was obtained and is noncontributory except for that mentioned above. PHYSICAL EXAMINATION: NEUROSURGERY EXAMINATION: GENERAL APPEARANCE: Alert, pleasant, no acute distress. HEAD: Normocephalic and atraumatic. SKIN: Warm and dry. MUSCULOSKELETAL: Lumbar paraspinal muscle bulk is normal, restricted range of motion of the lumbar spine, [id number] tenderness of lower lumbar spine with palpation, normal range of motion of the lower extremities bilaterally. EXTREMITIES: No clubbing, cyanosis or edema. NEUROLOGIC: Alert and oriented times 3, normal recent and remote memory. Strength 5/5 in bilateral lower extremities, sensory was intact to light touch in bilateral lower extremities, reflexes were present and symmetric in the lower extremities bilaterally, positive straight leg raise in left with a left buttock and posterior thigh pain relieved by Lasegue's maneuver, positive crossed straight leg raising on the right, abnormal gait using a walker. IMAGING: I reviewed a lumbar MRI scan. There are multilevel degenerative changes, which are primarily degenerative. These problems are most severe at L4-L5, but there is moderately severe central canal stenosis along with moderate lateral recess narrowing, which is prominent on the left side. ASSESSMENT/PLAN: I spoke with the patient about treatment options. She has had an elevated BMI, which does have an increased risk of surgery including nerve injury, infection and perioperative occasion. That being said, she has failed to improve with epidural steroids. She reports having physical therapy, which did not benefit her at all. I told her that I was willing to operate and help decompress at L4-L5 on the left. I explained that the surgery would help her most likely with her leg pain, but would not stop the chronic back pain that she has been experiencing for years. She understands and she would like to proceed. SERGIO DARBY MD DR: AURELIO/jerome JOB#: [id number] / [id number] BEATRICE
[~2017-10-27 07:04] MED LIST changes: +BACITRACIN 50,000 UNIT in IV NORMAL SALINE 1000ML BAG 1,000 ML IRR ONE; +BUPIVAC MPF-EPI 0.5%-1:200000 30 ML VIAL. INJ ONE; +GELATIN SPONGE SIZE 100. ONE; +HYDROmorphone 2 MG/ML VIAL IV PRN; +IV RINGERS,LACTATED 1000ML 1,000 ML IV SCH; +KETOROLAC 60 MG/2 ML INJ FOR OR. ONE; +LIDOCAINE 1% PF 2 ML VIAL. ID PRN; -LOSA25TA4 PO; +LOSA25TA5 PO; -METF10003 PO; +METF10007 PO; +MORPHINE SULFATE 2 MG/ML VIAL. IV PRN; +ONDANSETRON PF 4 MG/2 ML VIAL. IV PRN; +PROCHLORPERAZINE 10 MG/2 ML VIAL. IV PRN; +THROMBIN TOPICAL 20,000 UNIT SPRAY.SYRN KIT TP ONE
[2017-10-27] MEDS ORDERED: ROCURONIUM 50 MG/5 ML VIAL. ONE (08:10)
[2017-10-27] MEDS ORDERED: ePHEDrine PF IN SALINE 50 MG/5 ML DISP.SYRIN IV ONE (08:11)
[2017-10-27] MEDS ORDERED: fentaNYL PF VIAL 100 MCG/2 ML VIAL ONE (08:12)
[2017-10-27] MEDS ORDERED: REMIFENTANIL 2 MG VIAL. IV ONE (08:13)
[2017-10-27] MEDS ORDERED: SUCCINYLCHOLINE 200 MG/10 ML VIAL. ONE (08:14)
[2017-10-27] MEDS: VANCOMYCIN 1GM IVPB FOR OMNI 250 ML IV PRN ×2 (09:05→14:47)
[2017-10-27] MEDS ORDERED: GLYCOPYRROLATE 1 MG/5 ML VIAL. ONE (09:26)
[2017-10-27] MEDS ORDERED: PROPOFOL 20 ML IV ONE (09:29)
[2017-10-27] MEDS ORDERED: LIDOCAINE 2% PF Vial for OR 5 ML VIAL. ONE (09:29)
[2017-10-27] MEDS ORDERED: ONDANSETRON PF 4 MG/2 ML VIAL. ONE (09:29)
[2017-10-27] MEDS ORDERED: DEXAMETHASONE SOD PHOS 20 MG/5 ML VIAL. ONE (09:29)
[2017-10-27] MEDS ORDERED: NEOSTIGMINE METHYLSULFATE 5 MG/5 ML SYRINGE. ONE (09:36)
--- NOTE | 2017-10-27 11:46 | OP ---
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 POSTOPERATIVE DIAGNOSES: Lateral recess stenosis and stenosis at L4-L5 central and left with left lumbar radiculopathy. OPERATION PERFORMED: Hemilaminotomy, microdecompression of dura and nerve root, L4-L5, left. The operation was done with EMG monitoring, fluoroscopy, microscopic dissection. SURGEON: Juan Darby M.D. CORRECTIONS COUNSELOR: ANDREY Serrano who assisted with the operation. She assisted with the exposure, the microdecompression as well as the closure. OPERATIVE INDICATIONS: The patient is a pleasant 62-year-old who is having difficulty with low back and left leg pain. On imaging studies, she was found to have lateral stenosis at L4-L5 and I recommended lumbar microsurgery. I discussed with her in detail the risks of the operation, the technique and expected postoperative course and she wished to go ahead. DESCRIPTION OF PROCEDURE: Following general endotracheal anesthesia, the patient was positioned prone on the Tan table with lumbar region prepped and draped in standard fashion. BRANDY hose and AV impulse boots were applied for DVT prophylaxis. The microscope was draped. Fluoroscopy was draped and brought in the field. Monitoring was established. Vancomycin 1 gram was given prior to surgery on imaging. I made a midline incision over the L4-L5 interspace. I dissected down skin and subcutaneous tissue. I placed a long lumbar microdisc retractor and brought in the microscope and the remainder of surgery done with the microscope using microscopic technique. I did incise the lumbodorsal fascia and created a small exposure over the L4-L5 interspace on the left side. I brought in the high-speed air drill. Again through the microscope, I drilled a very generous hemilaminotomy and then, the ligamentum flavum was quite thickened and compressive and I gently from superiorly to inferiorly peeled this and from medial to lateral peeled this away. I did perform a generous partial foraminotomy. I palpated the disc. There were a number of large epidural veins, which I coagulated with a long bipolar. I palpated the disc, it was very firm, no discectomy was warranted. I explored carefully beneath the root superiorly and inferiorly and the dural complex was easily retracted. I worked more medially and trimmed some of the more medial thickened ligamentum to allow further decompression. I irrigated copiously with antibiotic solution. I gently pulled and removed the retractor and obtained hemostasis in the muscle, irrigated again and then closed the fascia, subcutaneous tissue in layers as well as the skin with a 4-0 subcuticular stitch. The operation went very well and the patient was taken to the recovery room in excellent condition. I was quite pleased with the surgery. JUAN DARBY MD DR: AURELIO/jerome JOB#: [id number] / [id number] BEATRICE
[2017-10-27] MEDS: fentaNYL PF VIAL 100 MCG/2 ML VIAL IV PRN ×5 (12:07→13:31)
--- NOTE | 2017-10-27 12:07 | DISCH ---
DISCHARGE INSTRUCTIONS Condition on Discharge Condition on Discharge: Stable Activity After Discharge Activity Instructions for Disc: Activity as tolerated, Avoid exertion Other activity instructions: no driving for a week Bathing Instructions: Shower-keep dressing dry Lifting Instructions after Dis: No heavy lifting, No pulling or pushing, Do not lift >10 pounds Diet after Discharge Additional Diet Restrictions: resume home diet Wound Incision Care Wound/Incision Care: Ice to area for comfort Other wound/incision instructi: may remove dressing in 48 hrs if dry then may shower- no soaking Contacting the after DC Call your doctor for: Concerns you may have Follow-Up Follow up with: Dr. Darby's nurse in 2 weeks [phone] SERGIO DARBY MD Oct 27, 2017 12:07
[2017-10-27] MEDS ORDERED: DOCU-109 PO (12:09)
[2017-10-27] MEDS ORDERED: CALCIUM CARBONATE 500 MG TAB.CHEW PO PRN (13:30)
[2017-10-27] MEDS ORDERED: fentaNYL PF VIAL 100 MCG/2 ML VIAL IV PRN (13:30)
[2017-10-27] MEDS ORDERED: MAG HYDROX/ALUMINUM HYD/SIMETH 30 ML ORAL.SUSP PO PRN (13:30)
[2017-10-27] MEDS ORDERED: LACTULOSE 20 GM/30 ML SOLUTION. PO PRN (13:30)
[2017-10-27] MEDS ORDERED: 0.9 % SODIUM CHLORIDE 10 ML DISP.SYRIN. IV PRN (13:30)
[2017-10-27] MEDS ORDERED: diphenhydrAMINE HCL 25 MG CAPSULE PO PRN (13:30)
[2017-10-27] MEDS ORDERED: MAGNESIUM HYDROXIDE 2,400 MG/30 ML ORAL.SUSP. PO PRN (13:30)
[2017-10-27] MEDS ORDERED: diphenhydrAMINE 50 MG/ML VIAL IV PRN (13:30)
[2017-10-27] MEDS ORDERED: DEXTROSE 50% 25 GM / 50ML DISP.SYRIN. IV PRN (13:30)
[2017-10-27] MEDS ORDERED: ACETAMINOPHEN 325 MG TABLET. PO PRN (13:30)
[2017-10-27] MEDS: LOSARTAN POTASSIUM 25 MG TABLET. PO SCH (14:00)
[2017-10-27] MEDS ORDERED: tiZANidine 4 MG TABLET. PO PRN (14:00)
[2017-10-27] MEDS: CETIRIZINE HCL 10 MG TABLET. PO SCH (14:00)
[2017-10-27] MEDS: METOPROLOL SUCC 24HR ER 25 MG TAB.ER.24H. PO SCH (14:00)
[2017-10-27] MEDS: DICYCLOMINE HCL 10 MG CAPSULE PO SCH ×2 (14:55→20:51)
[2017-10-27] MEDS: FUROSEMIDE 40 MG TABLET. PO SCH (14:55)
[2017-10-27] MEDS: GABAPENTIN 300 MG CAPSULE. PO SCH ×2 (14:55→20:52)
[2017-10-27] MEDS: MECLIZINE HCL 12.5 MG TABLET. PO SCH ×2 (14:55→20:51)
[2017-10-27] MEDS: POTASSIUM CHLORIDE 20 MEQ TABLET.ER. PO SCH ×2 (14:56→16:55)
[2017-10-27] MEDS: oxyCODONE/APAP 10/325 1 TAB TABLET PO PRN (15:16)
[2017-10-27] MEDS: PANTOPRAZOLE 40 MG TABLET.DR. PO SCH (16:31)
[2017-10-27] MEDS: traZODone 50 MG TABLET. PO SCH (16:54)
[2017-10-27] MEDS: INSULIN LISPRO 300 UNITS/3 ML INSULN.PEN. SQ SCH (17:02)
[2017-10-27] MEDS: POTASSIUM CL 20MEQ-0.45% NACL 1,000 ML IV SCH (19:38)
[2017-10-27] MEDS: DOCUSATE SODIUM 100 MG CAPSULE. PO SCH (20:51)
[2017-10-27] MEDS: ATORVASTATIN CALCIUM 40 MG TABLET. PO SCH (20:52)
[2017-10-27] MEDS: rOPINIRole 0.25 MG TABLET. PO SCH (21:01)
[2017-10-27] MEDS: INSULIN GLARGINE 300 UNITS/3 ML INSULN.PEN. SQ SCH (21:06)
[2017-10-27] MEDS: oxyCODONE ER 10 MG TAB.ER.12H PO SCH (22:59)
[2017-10-28] MEDS: POTASSIUM CL 20MEQ-0.45% NACL 1,000 ML IV SCH ×2 (02:42→07:09)
[2017-10-28 02:52] VITALS: BP 121/77
[2017-10-28 06:20] VITALS: BP 101/65
[2017-10-28] MEDS: PANTOPRAZOLE 40 MG TABLET.DR. PO SCH (07:00)
[2017-10-28] MEDS: oxyCODONE ER 10 MG TAB.ER.12H PO SCH ×2 (08:20→21:40)
[2017-10-28] MEDS: GABAPENTIN 300 MG CAPSULE. PO SCH ×3 (08:20→21:37)
[2017-10-28] MEDS: POTASSIUM CHLORIDE 20 MEQ TABLET.ER. PO SCH ×3 (08:20→17:14)
[2017-10-28] MEDS: DOCUSATE SODIUM 100 MG CAPSULE. PO SCH ×2 (08:20→21:00)
[2017-10-28] MEDS: CETIRIZINE HCL 10 MG TABLET. PO SCH (08:21)
[2017-10-28] MEDS: DICYCLOMINE HCL 10 MG CAPSULE PO SCH ×3 (08:21→21:37)
[2017-10-28] MEDS: MECLIZINE HCL 12.5 MG TABLET. PO SCH ×3 (08:21→21:38)
[2017-10-28] MEDS: LOSARTAN POTASSIUM 25 MG TABLET. PO SCH (08:22)
[2017-10-28] MEDS: FLUTICASONE 50MCG/NASAL SPRAY 16GM BOTTLE. NS SCH ×2 (08:23→11:37)
[2017-10-28] MEDS: INSULIN LISPRO 300 UNITS/3 ML INSULN.PEN. SQ SCH ×3 (08:27→17:20)
[2017-10-28] MEDS: METOPROLOL SUCC 24HR ER 25 MG TAB.ER.24H. PO SCH (08:35)
[2017-10-28] MEDS: FUROSEMIDE 40 MG TABLET. PO SCH ×2 (08:35→13:32)
[2017-10-28] MEDS ORDERED: NON FORMULARY ITEM (Liraglutide (Victoza 3-Pak) 1.8 MG) SQ SCH (09:00)
--- NOTE | 2017-10-28 11:16 | PDOC ---
PROGRESS NOTES Subjective Subjective POD #1 sitting up in chair left leg pain when up walking Objective Objective Vital Signs Date Time Temp Pulse Resp B/P (MAP) Pulse Ox O2 Delivery O2 Flow Rate FiO2 10/28/17 08:35 74 105/65 10/28/17 08:20 Room Air 10/28/17 07:28 2.0 10/28/17 06:20 97.9 18 100 97.9 Intake and Output 10/28/17 07:00 Intake Total 2620 ml Output Total 675 ml Balance 1945 ml Intake Oral 1270 ml IV Total 1350 ml Output Urine Total 650 ml Estimated Blood Loss 25 ml # Voids 1 Physical Exam General: Alert, Oriented X3, Cooperative MUSCULOSKELETAL: Other (GOLD) Neuro: Other (Strength 5/5 in BLE) Skin: Other (Dressing C,D, I, flat) Plan Plan of Care encouraged increased activity as tolerated PT Possible dc later today Comment Review of Relevant I have reviewed the following items bimal (where applicable) has been applied. Labs Laboratory Tests Test 10/27/17 07:59 10/27/17 11:47 10/27/17 16:31 10/27/17 20:45 Glucose (Fingerstick) 143 mg/dL (70-99) 187 mg/dL (70-99) 236 mg/dL (70-99) 244 mg/dL (70-99) Test 10/28/17 06:33 Glucose (Fingerstick) 247 mg/dL (70-99) Laboratory Tests Test 10/27/17 11:47 10/27/17 16:31 10/27/17 20:45 10/28/17 06:33 Glucose (Fingerstick) 187 mg/dL (70-99) 236 mg/dL (70-99) 244 mg/dL (70-99) 247 mg/dL (70-99) Medications Current Medications Ondansetron HCl (Zofran) 4 mg PRN Q6HRS PRN IV NAUSEA/VOMITING; Start 10/27/17 at 07:00; Stop 10/27/17 at 15:22; Status DC Fentanyl Citrate (Fentanyl 2ml Vial) 25 mcg PRN Q5MIN PRN IV MILD PAIN Last administered on 10/27/17at 12:55; Start 10/27/17 at 07:00; Stop 10/27/17 at 15:22 ; Status DC Fentanyl Citrate (Fentanyl 2ml Vial) 50 mcg PRN Q5MIN PRN IV MODERATE TO SEVERE PAIN Last administered on 10/27/17at 13:31; Start 10/27/17 at 07:00; Stop 10/27/17 at 15:22; Status DC Morphine Sulfate (Morphine Sulfate) 1 mg PRN Q10MIN PRN IV SEVERE PAIN; Start 10/27/17 at 07:00; Stop 10/27/17 at 15:22; Status DC Ringer's Solution 1,000 ml @ 30 mls/hr Q24H IV Last administered on 10/27/17at 08:03; Start 10/27/17 at 07:00; Stop 10/27/17 at 15:22; Status DC Lidocaine HCl (Xylocaine-Mpf 1% 2ml Vial) 2 ml PRN 1X PRN ID PRIOR TO IV START ; Start 10/27/17 at 07:00; Stop 10/27/17 at 15:22; Status DC Hydromorphone HCl (Dilaudid) 0.5 mg PRN Q10MIN PRN IV SEV PAIN, Second choice; Start 10/27/17 at 07:00; Stop 10/27/17 at 15:22; Status DC Prochlorperazine Edisylate (Compazine) 5 mg PACU PRN PRN IV NAUSEA, MRX1; Start 10/27/17 at 07:00; Stop 10/27/17 at 15:22; Status DC Vancomycin HCl 250 ml @ 250 mls/hr 1X PREOP PRN IV PRIOR TO PROCEDURE Last administered on 10/27/17at 09:05; Start 10/27/17 at 06:00; Stop 10/27/17 at 18:00 ; Status DC Bacitracin 43276 unit/Sodium Chloride 1,000 ml @ 1,000 mls/hr 1X ONCE IRR Last administered on 10/27/17at 09:51; Start 10/27/17 at 06:00; Stop 10/27/17 at 06:59; Status DC Bupivacaine HCl/ Epinephrine Bitart (Sensorcain-Mpf Epi 0.5%-1:508391) 30 ml 1X ONCE INJ Last administered on 10/27/17at 09:51; Start 10/27/17 at 06:30; Stop 10/27/17 at 06:31; Status DC Gelatin (Gelfoam Size 100) 1 each STK-MED ONCE .ROUTE Last administered on 12/04at 09:51; Start 10/27/17 at 06:28; Stop 10/27/17 at 07:29; Status DC Ketorolac Tromethamine (Toradol For Or Only) 60 mg STK-MED ONCE .ROUTE Last administered on 10/27/17at 09:51; Start 10/27/17 at 06:28; Stop 10/27/17 at 07:29 ; Status DC Thrombin 20,000 unit STK-MED ONCE TP Last administered on 10/27/17at 09:51; Start 10/27/17 at 06:28; Stop 10/27/17 at 07:29; Status DC Rocuronium [place] (Zemuron) 50 mg STK-MED ONCE .ROUTE ; Start 10/27/17 at 08:10 ; Stop 10/27/17 at 08:11; Status DC Ephedrine Sulfate (ePHEDrine PF IN SALINE SYRINGE) 50 mg STK-MED ONCE IV ; Start 10/27/17 at 08:11; Stop 10/27/17 at 08:12; Status DC Fentanyl Citrate (Fentanyl 2ml Vial) 100 mcg STK-MED ONCE .ROUTE ; Start at 08:12; Stop 10/27/17 at 08:13; Status DC Remifentanil HCl (Ultiva) 2 mg STK-MED ONCE IV ; Start 10/27/17 at 08:13; Stop 10/27/17 at 08:14; Status DC Succinylcholine Chloride (Anectine) 200 mg STK-MED ONCE .ROUTE ; Start 10/27/17 at 08:14; Stop 10/27/17 at 08:15; Status DC Glycopyrrolate (Robinul) 1 mg STK-MED ONCE .ROUTE ; Start 10/27/17 at 09:26; Stop 10/27/17 at 09:27; Status DC Dexamethasone Sodium Phosphate (Decadron) 20 mg STK-MED ONCE .ROUTE ; Start 12/04 at 09:29; Stop 10/27/17 at 09:30; Status DC Ondansetron HCl (Zofran) 4 mg STK-MED ONCE .ROUTE ; Start 10/27/17 at 09:29; Stop 10/27/17 at 09:30; Status DC Propofol 20 ml @ As Directed STK-MED ONCE IV ; Start 10/27/17 at 09:29; Stop 12/04 at 09:30; Status DC Lidocaine HCl (Lidocaine Pf 2% Vial) 5 ml STK-MED ONCE .ROUTE ; Start 10/27/17 at 09:29; Stop 10/27/17 at 09:30; Status DC Neostigmine Methylsulfate (Neostigmine Methylsulfate) 5 mg STK-MED ONCE .ROUTE ; Start 10/27/17 at 09:36; Stop 10/27/17 at 09:37; Status DC Acetaminophen (Tylenol) 650 mg PRN Q6HRS PRN PO MILD PAIN / TEMP Last administered on 10/28/17at 02:50; Start 10/27/17 at 13:30 Al Hydroxide/Mg Hydroxide (Mylanta Plus Xs) 30 ml PRN Q3HRS PRN PO HEARTBURN / GAS; Start 10/27/17 at 13:30 Calcium Carbonate/ Glycine (Tums) 500 mg PRN Q3HRS PRN PO INDIGESTION; Start at 13:30 Diphenhydramine HCl (Benadryl) 25 mg PRN Q6HRS PRN PO ITCHING; Start 10/27/17 at 13:30 Diphenhydramine HCl (Benadryl) 25 mg PRN Q6HRS PRN IV ITCHING; Start 10/27/17 at 13:30 Sodium Chloride (Normal Saline Flush) 3 ml QSHIFT PRN IV AFTER MEDS AND BLOOD DRAWS; Start 10/27/17 at 13:30 Potassium Chloride/Sodium Chloride 1,000 ml @ 75 mls/hr [id number] IV Last administered on 10/27/17at 19:38; Start 10/27/17 at 13:22 Docusate Sodium (Colace) 100 mg BID PO Last administered on 10/28/17at 08:20; Start 10/27/17 at 21:00 Magnesium Hydroxide (Milk Of Magnesia) 2,400 mg PRN Q12HR PRN PO CONSTIPATION; Start 10/27/17 at 13:30 Dextrose (Dextrose 50%-Water Syringe) 12.5 gm PRN Q15MIN PRN IV SEE COMMENTS; Start 10/27/17 at 13:30 Fentanyl Citrate (Fentanyl 2ml Vial) 50 mcg PRN Q2HR PRN IV SEVERE PAIN; Start 10/27/17 at 13:30 Cetirizine HCl (ZyrTEC) 10 mg DAILY PO Last administered on 10/28/17at 08:21; Start 10/27/17 at 14:00 Dicyclomine HCl (Bentyl) 10 mg TID PO Last administered on 10/28/17at 08:21; Start 10/27/17 at 14:00 Ergocalciferol (Vitamin D2) 50,000 unit We PO ; Start 10/29/17 at 09:00 Furosemide (Lasix) 40 mg [id number] PO Last administered on 10/27/17at 14:55; Start 10/27/17 at 14:00 Lactulose (Lactulose) 10 gm PRN TID PRN PO CONSTIPATION; Start 10/27/17 at 13: 30 Losartan Potassium (Cozaar) 25 mg DAILY PO ; Start 10/27/17 at 14:00 Metoprolol Succinate (Toprol Xl) 25 mg DAILY PO ; Start 10/27/17 at 14:00 Oxycodone/ Acetaminophen (Percocet 10/325) 1 tab PRN TID PRN PO SEVERE PAIN Last administered on 10/27/17at 15:16; Start 10/27/17 at 13:30 Pantoprazole Sodium (Protonix) 40 mg DAILY07 PO Last administered on 10/28/17at 07:00; Start 10/27/17 at 16:30 Trazodone HCl (Desyrel) 50 mg DAILYWSUP PO Last administered on 10/27/17at 16:54 ; Start 10/27/17 at 17:00 Fluticasone Propionate (Flonase) 1 spray DAILY NS ; Start 10/28/17 at 09:00 Gabapentin (Neurontin) 600 mg TID PO Last administered on 10/28/17at 08:20; Start 10/27/17 at 14:00 Hydrochlorothiazide (Hydrodiuril) 25 mg Th PO ; Start 10/30/17 at 09:00 Insulin Glargine (Lantus) 80 units QHS SQ Last administered on 10/27/17at 21:06 ; Start 10/27/17 at 21:00 Insulin Human Lispro (HumaLOG) 38 units TIDWMEALS SQ Last administered on at 08:27; Start 10/27/17 at 17:00 Non-Formulary Medication (Liraglutide (Victoza 3-Calvin)) 1.8 mg DAILY SQ ; Start 10/28/17 at 09:00; Stop 10/28/17 at 09:00; Status DC Magnesium Oxide (Magnesium Oxide) 400 mg QHS PO ; Start 10/28/17 at 21:00 Meclizine HCl (Antivert) 25 mg TID PO Last administered on 10/28/17 08:21; Start 10/27/17 at 14:00 Oxycodone HCl (OxyCONTIN) 30 mg Q12HR PO Last administered on 10/28/17 08:20; Start 10/27/17 at 21:00 Potassium Chloride (Klor-Con) 20 meq TIDAFTMEAL PO Last administered on at 08:20; Start 10/27/17 at 14:00 Ropinirole HCl (Requip) 0.5 mg QHS PO Last administered on 10/27/17 21:01; Start 10/27/17 at 21:00 Atorvastatin Calcium (Lipitor) 80 mg QHS PO Last administered on 10/27/17at 20: 52; Start 10/27/17 at 21:00 Tizanidine HCl (Zanaflex) 4 mg PRN TID PRN PO MUSCLE SPASMS Last administered on 10/27/17 19:20; Start 10/27/17 at 14:00 Active Scripts Active Reported Vitamin D2 (Ergocalciferol (Vitamin D2)) 50,000 Unit Capsule 50,000 Unit PO WEEKLY Potassium Chloride 20 Meq Tablet.er 20 Meq PO TID Hydrochlorothiazide Tablet (Hydrochlorothiazide) 50 Mg Tablet 25 Mg PO WEEKLY Zyrtec (Cetirizine Hcl) 10 Mg Tablet 10 Mg PO Toprol Xl (Metoprolol Succinate) 25 Mg Tab.er.24h 25 Mg PO DAILY Lactulose 20 Gm/30 Ml Solution 10 Gm PO PRN TID PRN Lidocaine 1 Each Adh..patch 1 Each TP Tizanidine Hcl 4 Mg Tablet 4 Mg PO TID PRN Losartan Potassium 25 Mg Tablet 25 Mg PO DAILY Dicyclomine Hcl 10 Mg Capsule 10 Mg PO TID Victoza 3-Calvin (Liraglutide) 0.6 Mg/0.1 Ml Pen.injctr 1.8 Mg SQ DAILY Protonix (Pantoprazole Sodium) 40 Mg Tablet.dr 40 Mg PO DAILY Flonase Allergy Relief (Fluticasone Propionate) 9.9 Ml [place].susp 1 Sprays NS DAILY Percocet 10-325 Mg Tablet (Oxycodone/Acetaminophen) 1 Each Tablet 1 Each PO PRN TID PRN Gabapentin 300 Mg Capsule 600 Mg PO TID Requip (Ropinirole Hcl) 0.5 Mg Tablet 0.5 Mg PO HS Levemir (Insulin Detemir) 100 Unit/1 Ml Vial 80 Unit SQ HS Furosemide 40 Mg Tablet 40 Mg PO BID Magnesium Oxide 400 Mg Tablet 400 Mg PO HS Meclizine Hcl 25 Mg Tab.chew 25 Mg PO TID Trazodone Hcl 50 Mg Tablet 50 Mg PO DAILYWSUP Humalog (Insulin Lispro) 100 Unit/1 Ml Cartridge 38 Unit SQ TIDAC Crestor (Rosuvastatin Calcium) 20 Mg Tablet 20 Mg PO HS Oxycontin (Oxycodone HCl) 80 Mg Tab.er.12h 30 Mg PO BID Vitals/I & O Vital Sign - Last 24 Hours 10/27/17 10/27/17 10/27/17 10/27/17 11:36 11:36 11:55 11:59 Temp 98.0 98.0 Pulse 89 88 Resp 16 16 B/P (MAP) 114/55 129/71 Pulse Ox 100 99 100 O2 Delivery Mask Simple Mask Simple Mask BiPAP/CPAP O2 Flow Rate 10 10 10 10/27/17 10/27/17 10/27/17 10/27/17 12:07 12:10 12:25 12:37 Pulse 78 74 Resp 18 16 B/P (MAP) 129/68 145/63 Pulse Ox 100 100 100 100 O2 Delivery BiPAP/CPAP BiPAP/CPAP BiPAP/CPAP BiPAP/CPAP O2 Flow Rate 40.0 40.0 10/27/17 10/27/17 10/27/17 10/27/17 12:40 12:55 12:55 13:10 Pulse 72 76 Resp 16 16 12 16 B/P (MAP) 131/61 144/66 Pulse Ox 100 100 100 100 O2 Delivery BiPAP/CPAP Nasal Cannula Nasal Cannula Nasal Cannula O2 Flow Rate 2.0 2 2.0 9/10/18 9/10/18 9/10/18 9/10/18 13:10 13:31 14:05 14:06 Temp 97.4 97.4 Pulse 78 80 75 Resp 16 16 B/P (MAP) 122/64 130/75 (93) 117/73 (88) Pulse Ox 100 100 O2 Delivery Nasal Cannula Nasal Cannula Nasal Cannula O2 Flow Rate 2 2.0 2.0 10/27/17 10/27/17 10/27/17 10/27/17 14:23 14:55 15:16 15:27 Pulse 82 86 Resp 16 B/P (MAP) 134/60 (84) 138/76 (96) O2 Delivery Nasal Cannula Nasal Cannula O2 Flow Rate 2.0 2.0 10/27/17 10/27/17 10/27/17 10/27/17 16:01 16:38 17:35 18:53 Temp 97.7 97.7 Pulse 66 73 70 Resp 18 B/P (MAP) 117/76 (90) 121/78 (92) 123/82 (96) Pulse Ox 97 O2 Delivery Nasal Cannula Nasal Cannula Nasal Cannula O2 Flow Rate 2.0 2.0 2.0 10/27/17 10/27/17 10/27/17 10/28/17 19:45 22:59 23:00 02:52 Temp 97.8 97.8 Pulse 61 75 Resp 20 17 17 B/P (MAP) 121/75 (90) 121/77 (92) Pulse Ox 97 98 O2 Delivery Nasal Cannula Nasal Cannula Nasal Cannula Nasal Cannula O2 Flow Rate 2.0 2.0 2.0 10/28/17 10/28/17 10/28/17 10/28/17 03:01 06:20 07:28 08:20 Temp 97.9 97.9 Pulse 67 Resp 18 18 B/P (MAP) 101/65 (77) Pulse Ox 95 100 O2 Delivery Nasal Cannula Nasal Cannula Nasal Cannula Room Air O2 Flow Rate 2.0 2.0 2.0 10/28/17 10/28/17 08:22 08:35 Pulse 74 74 B/P (MAP) 105/65 105/65 Intake and Output 10/27/17 10/27/17 10/28/17 15:00 23:00 07:00 Intake Total 1350 ml 720 ml 550 ml Output Total 25 ml 0 ml 650 ml Balance 1325 ml 720 ml -100 ml LAILA C[employer]IG [employer] Oct 28, 2017 11:16
[2017-10-28 11:34] VITALS: BP 97/58
[2017-10-28] MEDS: oxyCODONE/APAP 10/325 1 TAB TABLET PO PRN ×2 (13:32→17:15)
[2017-10-28] MEDS: traZODone 50 MG TABLET. PO SCH (17:14)
[2017-10-28 19:30] VITALS: BP 90/54
[2017-10-28] MEDS: MAGNESIUM OXIDE 400 MG TABLET PO SCH (21:37)
[2017-10-28] MEDS: rOPINIRole 0.25 MG TABLET. PO SCH (21:38)
[2017-10-28] MEDS: ATORVASTATIN CALCIUM 40 MG TABLET. PO SCH (21:43)
[2017-10-28] MEDS: INSULIN GLARGINE 300 UNITS/3 ML INSULN.PEN. SQ SCH (21:53)
[2017-10-28 22:30] VITALS: BP 94/58
[2017-10-29] VITALS (7 sets, daily range): BP systolic 79–114; BP diastolic 48–72
[2017-10-29] MEDS: POTASSIUM CL 20MEQ-0.45% NACL 1,000 ML IV SCH (05:13)
[2017-10-29] MEDS: oxyCODONE/APAP 10/325 1 TAB TABLET PO PRN ×2 (06:14→16:39)
[2017-10-29] MEDS: PANTOPRAZOLE 40 MG TABLET.DR. PO SCH (07:00)
[2017-10-29] MEDS: DICYCLOMINE HCL 10 MG CAPSULE PO SCH ×3 (08:33→21:12)
[2017-10-29] MEDS: CETIRIZINE HCL 10 MG TABLET. PO SCH (08:33)
[2017-10-29] MEDS: GABAPENTIN 300 MG CAPSULE. PO SCH ×3 (08:33→21:12)
[2017-10-29] MEDS: DOCUSATE SODIUM 100 MG CAPSULE. PO SCH ×2 (08:33→21:11)
[2017-10-29] MEDS: LOSARTAN POTASSIUM 25 MG TABLET. PO SCH (08:34)
[2017-10-29] MEDS: POTASSIUM CHLORIDE 20 MEQ TABLET.ER. PO SCH ×3 (08:34→16:40)
[2017-10-29] MEDS: MECLIZINE HCL 12.5 MG TABLET. PO SCH ×3 (08:34→21:12)
[2017-10-29] MEDS: FUROSEMIDE 40 MG TABLET. PO SCH ×2 (08:35→13:27)
[2017-10-29] MEDS: METOPROLOL SUCC 24HR ER 25 MG TAB.ER.24H. PO SCH (08:36)
[2017-10-29] MEDS: oxyCODONE ER 10 MG TAB.ER.12H PO SCH ×2 (08:39→21:13)
[2017-10-29] MEDS: FLUTICASONE 50MCG/NASAL SPRAY 16GM BOTTLE. NS SCH (08:40)
[2017-10-29] MEDS: INSULIN LISPRO 300 UNITS/3 ML INSULN.PEN. SQ SCH ×4 (08:49→17:16)
[2017-10-29] MEDS ORDERED: ERGOCALCIFEROL (VITAMIN D2) 50,000 UNIT CAPSULE. PO SCH (09:00)
--- NOTE | 2017-10-29 12:39 | PDOC ---
PROGRESS NOTES Subjective Subjective POD #2 up in chair eating lunch still c/o of severe left leg pain with walking, comfortable sitting, mild pain in right leg as well Objective Objective Vital Signs Date Time Temp Pulse Resp B/P (MAP) Pulse Ox O2 Delivery O2 Flow Rate FiO2 10/29/17 11:04 98.3 75 103/66 (78) 95 Room Air 98.3 10/29/17 06:20 20 2.0 Intake and Output 10/29/17 07:00 Intake Total 1380 ml Output Total 1800 ml Balance -420 ml Intake Oral 1380 ml Output Urine Total 1800 ml # Voids 2 Physical Exam General: Alert, Oriented X3, Cooperative, No acute distress MUSCULOSKELETAL: Other (GOLD) Neuro: Normal speech Skin: Other (dressing C,D,I, flat) Plan Plan of Care encouraged increased activity PT Consult Dr. Blount add medrol dose pack add SS insulin SCDs when in bed Comment Review of Relevant I have reviewed the following items bimal (where applicable) has been applied. Labs Laboratory Tests Test 10/27/17 16:31 10/27/17 20:45 10/28/17 06:33 10/28/17 11:26 Glucose (Fingerstick) 236 mg/dL (70-99) 244 mg/dL (70-99) 247 mg/dL (70-99) 294 mg/dL (70-99) Test 10/28/17 16:08 10/28/17 20:35 10/29/17 06:24 10/29/17 11:09 Glucose (Fingerstick) 141 mg/dL (70-99) 125 mg/dL (70-99) 116 mg/dL (70-99) 207 mg/dL (70-99) Laboratory Tests Test 10/28/17 16:08 10/28/17 20:35 10/29/17 06:24 10/29/17 11:09 Glucose (Fingerstick) 141 mg/dL (70-99) 125 mg/dL (70-99) 116 mg/dL (70-99) 207 mg/dL (70-99) Medications Current Medications Ondansetron HCl (Zofran) 4 mg PRN Q6HRS PRN IV NAUSEA/VOMITING; Start 10/27/17 at 07:00; Stop 10/27/17 at 15:22; Status DC Fentanyl Citrate (Fentanyl 2ml Vial) 25 mcg PRN Q5MIN PRN IV MILD PAIN Last administered on 10/27/17at 12:55; Start 10/27/17 at 07:00; Stop 10/27/17 at 15:22 ; Status DC Fentanyl Citrate (Fentanyl 2ml Vial) 50 mcg PRN Q5MIN PRN IV MODERATE TO SEVERE PAIN Last administered on 10/27/17at 13:31; Start 10/27/17 at 07:00; Stop 10/27/17 at 15:22; Status DC Morphine Sulfate (Morphine Sulfate) 1 mg PRN Q10MIN PRN IV SEVERE PAIN; Start 10/27/17 at 07:00; Stop 10/27/17 at 15:22; Status DC Ringer's Solution 1,000 ml @ 30 mls/hr Q24H IV Last administered on 10/27/17at 08:03; Start 10/27/17 at 07:00; Stop 10/27/17 at 15:22; Status DC Lidocaine HCl (Xylocaine-Mpf 1% 2ml Vial) 2 ml PRN 1X PRN ID PRIOR TO IV START ; Start 10/27/17 at 07:00; Stop 10/27/17 at 15:22; Status DC Hydromorphone HCl (Dilaudid) 0.5 mg PRN Q10MIN PRN IV SEV PAIN, Second choice; Start 10/27/17 at 07:00; Stop 10/27/17 at 15:22; Status DC Prochlorperazine Edisylate (Compazine) 5 mg PACU PRN PRN IV NAUSEA, MRX1; Start 10/27/17 at 07:00; Stop 10/27/17 at 15:22; Status DC Vancomycin HCl 250 ml @ 250 mls/hr 1X PREOP PRN IV PRIOR TO PROCEDURE Last administered on 10/27/17at 09:05; Start 10/27/17 at 06:00; Stop 10/27/17 at 18:00 ; Status DC Bacitracin 99074 unit/Sodium Chloride 1,000 ml @ 1,000 mls/hr 1X ONCE IRR Last administered on 10/27/17at 09:51; Start 10/27/17 at 06:00; Stop 10/27/17 at 06:59; Status DC Bupivacaine HCl/ Epinephrine Bitart (Sensorcain-Mpf Epi 0.5%-1:052491) 30 ml 1X ONCE INJ Last administered on 10/27/17at 09:51; Start 10/27/17 at 06:30; Stop 10/27/17 at 06:31; Status DC Gelatin (Gelfoam Size 100) 1 each STK-MED ONCE .ROUTE Last administered on 12/04at 09:51; Start 10/27/17 at 06:28; Stop 10/27/17 at 07:29; Status DC Ketorolac Tromethamine (Toradol For Or Only) 60 mg STK-MED ONCE .ROUTE Last administered on 10/27/17at 09:51; Start 10/27/17 at 06:28; Stop 10/27/17 at 07:29 ; Status DC Thrombin 20,000 unit STK-MED ONCE TP Last administered on 10/27/17at 09:51; Start 10/27/17 at 06:28; Stop 10/27/17 at 07:29; Status DC Rocuronium [place] (Zemuron) 50 mg STK-MED ONCE .ROUTE ; Start 10/27/17 at 08:10 ; Stop 10/27/17 at 08:11; Status DC Ephedrine Sulfate (ePHEDrine PF IN SALINE SYRINGE) 50 mg STK-MED ONCE IV ; Start 10/27/17 at 08:11; Stop 10/27/17 at 08:12; Status DC Fentanyl Citrate (Fentanyl 2ml Vial) 100 mcg STK-MED ONCE .ROUTE ; Start at 08:12; Stop 10/27/17 at 08:13; Status DC Remifentanil HCl (Ultiva) 2 mg STK-MED ONCE IV ; Start 10/27/17 at 08:13; Stop 10/27/17 at 08:14; Status DC Succinylcholine Chloride (Anectine) 200 mg STK-MED ONCE .ROUTE ; Start 10/27/17 at 08:14; Stop 10/27/17 at 08:15; Status DC Glycopyrrolate (Robinul) 1 mg STK-MED ONCE .ROUTE ; Start 10/27/17 at 09:26; Stop 10/27/17 at 09:27; Status DC Dexamethasone Sodium Phosphate (Decadron) 20 mg STK-MED ONCE .ROUTE ; Start 12/04 at 09:29; Stop 10/27/17 at 09:30; Status DC Ondansetron HCl (Zofran) 4 mg STK-MED ONCE .ROUTE ; Start 10/27/17 at 09:29; Stop 10/27/17 at 09:30; Status DC Propofol 20 ml @ As Directed STK-MED ONCE IV ; Start 10/27/17 at 09:29; Stop 12/04 at 09:30; Status DC Lidocaine HCl (Lidocaine Pf 2% Vial) 5 ml STK-MED ONCE .ROUTE ; Start 10/27/17 at 09:29; Stop 10/27/17 at 09:30; Status DC Neostigmine Methylsulfate (Neostigmine Methylsulfate) 5 mg STK-MED ONCE .ROUTE ; Start 10/27/17 at 09:36; Stop 10/27/17 at 09:37; Status DC Acetaminophen (Tylenol) 650 mg PRN Q6HRS PRN PO MILD PAIN / TEMP Last administered on 10/28/17at 02:50; Start 10/27/17 at 13:30 Al Hydroxide/Mg Hydroxide (Mylanta Plus Xs) 30 ml PRN Q3HRS PRN PO HEARTBURN / GAS; Start 10/27/17 at 13:30 Calcium Carbonate/ Glycine (Tums) 500 mg PRN Q3HRS PRN PO INDIGESTION; Start at 13:30 Diphenhydramine HCl (Benadryl) 25 mg PRN Q6HRS PRN PO ITCHING; Start 10/27/17 at 13:30 Diphenhydramine HCl (Benadryl) 25 mg PRN Q6HRS PRN IV ITCHING; Start 10/27/17 at 13:30 Sodium Chloride (Normal Saline Flush) 3 ml QSHIFT PRN IV AFTER MEDS AND BLOOD DRAWS; Start 10/27/17 at 13:30 Potassium Chloride/Sodium Chloride 1,000 ml @ 75 mls/hr [id number] IV Last administered on 10/27/17at 19:38; Start 10/27/17 at 13:22; Stop 10/29/17 at 07:16 ; Status DC Docusate Sodium (Colace) 100 mg BID PO Last administered on 10/29/17at 08:33; Start 10/27/17 at 21:00 Magnesium Hydroxide (Milk Of Magnesia) 2,400 mg PRN Q12HR PRN PO CONSTIPATION; Start 10/27/17 at 13:30 Dextrose (Dextrose 50%-Water Syringe) 12.5 gm PRN Q15MIN PRN IV SEE COMMENTS; Start 10/27/17 at 13:30 Fentanyl Citrate (Fentanyl 2ml Vial) 50 mcg PRN Q2HR PRN IV SEVERE PAIN; Start 10/27/17 at 13:30 Cetirizine HCl (ZyrTEC) 10 mg DAILY PO Last administered on 10/29/17at 08:33; Start 10/27/17 at 14:00 Dicyclomine HCl (Bentyl) 10 mg TID PO Last administered on 10/29/17 08:33; Start 10/27/17 at 14:00 Ergocalciferol (Vitamin D2) 50,000 unit We PO Last administered on 10/29/17 11 :03; Start 10/29/17 at 09:00 Furosemide (Lasix) 40 mg BID92 PO Last administered on 10/28/17at 13:32; Start 10/27/17 at 14:00 Lactulose (Lactulose) 10 gm PRN TID PRN PO CONSTIPATION; Start 10/27/17 at 13: 30 Losartan Potassium (Cozaar) 25 mg DAILY PO ; Start 10/27/17 at 14:00 Metoprolol Succinate (Toprol Xl) 25 mg DAILY PO ; Start 10/27/17 at 14:00 Oxycodone/ Acetaminophen (Percocet 10/325) 1 tab PRN TID PRN PO SEVERE PAIN Last administered on 10/29/17 06:14; Start 10/27/17 at 13:30 Pantoprazole Sodium (Protonix) 40 mg DAILY07 PO Last administered on 10/29/17 07:00; Start 10/27/17 at 16:30 Trazodone HCl (Desyrel) 50 mg DAILYWSUP PO Last administered on 10/28/17 17:14 ; Start 10/27/17 at 17:00 Fluticasone Propionate (Flonase) 1 spray DAILY NS Last administered on at 08:40; Start 10/28/17 at 09:00 Gabapentin (Neurontin) 600 mg TID PO Last administered on 10/29/17at 08:33; Start 10/27/17 at 14:00 Hydrochlorothiazide (Hydrodiuril) 25 mg Th PO ; Start 10/30/17 at 09:00 Insulin Glargine (Lantus) 80 units QHS SQ Last administered on 10/28/17 21:53 ; Start 10/27/17 at 21:00 Insulin Human Lispro (HumaLOG) 38 units TIDWMEALS SQ Last administered on 11:54; Start 10/27/17 at 17:00 Non-Formulary Medication (Liraglutide (Victoza 3-Calvin)) 1.8 mg DAILY SQ ; Start 10/28/17 at 09:00; Stop 10/28/17 at 09:00; Status DC Magnesium Oxide (Magnesium Oxide) 400 mg QHS PO Last administered on 10/28/17 21:37; Start 10/28/17 at 21:00 Meclizine HCl (Antivert) 25 mg TID PO Last administered on 10/29/17 08:34; Start 10/27/17 at 14:00 Oxycodone HCl (OxyCONTIN) 30 mg Q12HR PO Last administered on 10/29/17 08:39; Start 10/27/17 at 21:00 Potassium Chloride (Klor-Con) 20 meq TIDAFTMEAL PO Last administered on 08:34; Start 10/27/17 at 14:00 Ropinirole HCl (Requip) 0.5 mg QHS PO Last administered on 10/28/17 21:38; Start 10/27/17 at 21:00 Atorvastatin Calcium (Lipitor) 80 mg QHS PO Last administered on 10/28/17 21: 43; Start 10/27/17 at 21:00 Tizanidine HCl (Zanaflex) 4 mg PRN TID PRN PO MUSCLE SPASMS Last administered on 10/27/17 19:20; Start 10/27/17 at 14:00 Active Scripts Active Reported Vitamin D2 (Ergocalciferol (Vitamin D2)) 50,000 Unit Capsule 50,000 Unit PO WEEKLY Potassium Chloride 20 Meq Tablet.er 20 Meq PO TID Hydrochlorothiazide Tablet (Hydrochlorothiazide) 50 Mg Tablet 25 Mg PO WEEKLY Zyrtec (Cetirizine Hcl) 10 Mg Tablet 10 Mg PO Toprol Xl (Metoprolol Succinate) 25 Mg Tab.er.24h 25 Mg PO DAILY Lactulose 20 Gm/30 Ml Solution 10 Gm PO PRN TID PRN Lidocaine 1 Each Adh..patch 1 Each TP Tizanidine Hcl 4 Mg Tablet 4 Mg PO TID PRN Losartan Potassium 25 Mg Tablet 25 Mg PO DAILY Dicyclomine Hcl 10 Mg Capsule 10 Mg PO TID Victoza 3-Calvin (Liraglutide) 0.6 Mg/0.1 Ml Pen.injctr 1.8 Mg SQ DAILY Protonix (Pantoprazole Sodium) 40 Mg Tablet.dr 40 Mg PO DAILY Flonase Allergy Relief (Fluticasone Propionate) 9.9 Ml [place].susp 1 Sprays NS DAILY Percocet 10-325 Mg Tablet (Oxycodone/Acetaminophen) 1 Each Tablet 1 Each PO PRN TID PRN Gabapentin 300 Mg Capsule 600 Mg PO TID Requip (Ropinirole Hcl) 0.5 Mg Tablet 0.5 Mg PO HS Levemir (Insulin Detemir) 100 Unit/1 Ml Vial 80 Unit SQ HS Furosemide 40 Mg Tablet 40 Mg PO BID Magnesium Oxide 400 Mg Tablet 400 Mg PO HS Meclizine Hcl 25 Mg Tab.chew 25 Mg PO TID Trazodone Hcl 50 Mg Tablet 50 Mg PO DAILYWSUP Humalog (Insulin Lispro) 100 Unit/1 Ml Cartridge 38 Unit SQ TIDAC Crestor (Rosuvastatin Calcium) 20 Mg Tablet 20 Mg PO HS Oxycontin (Oxycodone HCl) 80 Mg Tab.er.12h 30 Mg PO BID Vitals/I & O Vital Sign - Last 24 Hours 10/28/17 10/28/17 10/28/17 10/28/17 13:32 15:00 17:15 19:15 Resp 20 Pulse Ox 96 O2 Delivery Room Air Room Air Room Air 10/28/17 10/28/17 10/28/17 10/28/17 19:30 20:30 21:40 22:30 Temp 97.8 98.6 97.8 98.6 Pulse 83 20 Resp 20 20 18 B/P (MAP) 90/54 (66) 94/58 (70) Pulse Ox 99 97 97 O2 Delivery Room Air Room Air Nasal Cannula Nasal Cannula O2 Flow Rate 2.0 2.0 10/29/17 10/29/17 10/29/17 10/29/17 02:00 06:14 06:20 08:31 Temp 98.4 98.4 Pulse 76 80 Resp 18 20 20 B/P (MAP) 113/69 (84) 96/63 (74) Pulse Ox 95 96 98 O2 Delivery Nasal Cannula Nasal Cannula Nasal Cannula O2 Flow Rate 2.0 2.0 2.0 10/29/17 10/29/17 10/29/17 10/29/17 08:34 08:36 08:39 08:39 Pulse 80 80 B/P (MAP) 96/63 96/63 O2 Delivery Room Air Room Air 10/29/17 11:04 Temp 98.3 98.3 Pulse 75 B/P (MAP) 103/66 (78) Pulse Ox 95 O2 Delivery Room Air Intake and Output 10/28/17 10/28/17 10/29/17 15:00 23:00 07:00 Intake Total 180 ml 750 ml 450 ml Output Total 850 ml 950 ml Balance 180 ml -100 ml -500 ml LAILA CRAIG [employer] Oct 29, 2017 12:39
[2017-10-29] MEDS ORDERED: DEXTROSE 50% 25 GM / 50ML DISP.SYRIN. IV PRN (12:45)
[2017-10-29] MEDS: methylPREDNISolone 4 MG TABLET. PO SCH ×4 (13:26→21:11)
[2017-10-29] MEDS: traZODone 50 MG TABLET. PO SCH (16:39)
[2017-10-29] MEDS ORDERED: MAGNESIUM HYDROXIDE 2,400 MG/30 ML ORAL.SUSP. PO ONE (17:15)
--- NOTE | 2017-10-29 18:07 | PATHOLOGY ---
[facility] Accession Number: [id number] . 01 Material submitted: . LUMBAR DECOMPRESSION . 01 Clinical history: . Lumbar stenosis, radiculopathy. . 02 Diagnosis: Segments of fibrocartilaginous, adipose, and skeletal muscle tissue and bone, lumbar decompression: - Degenerative changes of fibrocartilaginous tissue. MBR/10/29/2017 . 02 Comment: There is no evidence of an acute inflammatory process or malignancy. . (JPM:pavel; 10/29/2017) . 02 Electronically signed: . Tobin Robertson MD, Pathologist NPI- [id number] . 01 Gross description: . Received in formalin labeled "Nancy Aviles, lumbar decompression" is a 4.6 x 4.0 x 1.0 cm aggregate of troncoso-white rubbery soft tissue and left yellow-troncoso lobulated fibroadipose tissue. Scant troncoso-white possible bone is identified. Facility Maintenance Mechanic sections of the specimen is submitted in cassette A1 following decalcification. ([facility] [place]; 10/27/2017) SY/SY . 02 Pathologist provided ICD-10: M51.36 . 02 CPT . 442203, [id number] Specimen Comment: A courtesy copy of this report has been sent to Specimen Comment: [phone], . Specimen Comment: Report sent to / DR VERDUZCO Performed at: 01 [facility] [address], [place] [id number] MD Sadiq Orona MD Phone: [phone] Performed at: 02 [facility] [address], [place] [id number] MD Tobin Robertson MD Phone: [phone]
[2017-10-29] MEDS: BISACODYL 5 MG TABLET.DR. PO SCH (18:19)
[2017-10-29] MEDS: MAGNESIUM OXIDE 400 MG TABLET PO SCH (21:12)
[2017-10-29] MEDS: rOPINIRole 0.25 MG TABLET. PO SCH (21:12)
[2017-10-29] MEDS: SENNOSIDES/DOCUSATE 8.6/50MG TABLET. PO SCH (21:12)
[2017-10-29] MEDS: ATORVASTATIN CALCIUM 40 MG TABLET. PO SCH (21:12)
[2017-10-29] MEDS: INSULIN GLARGINE 300 UNITS/3 ML INSULN.PEN. SQ SCH (21:20)
--- NOTE | 2017-10-30 00:30 | CONS ---
DATE OF CONSULTATION: 10/29/2017 ATTENDING PHYSICIAN: Juan Brumfield M.D. REASON FOR CONSULTATION: The patient was seen at the request of Dr. Brumfield for rehab evaluation about her continued lower back pain. PRIMARY CARE PHYSICIAN: Sean Vera M.D. HISTORY OF PRESENT ILLNESS: This is a 62-year-old female known to me. The patient with chronic lower back pain with radiation to her left lower extremity. The patient had physical therapy, trigger point injections, epidural steroid injection without any lasting help. The patient has to use a cane and walker. PAST MEDICAL HISTORY: Also includes degenerative joint disease, gouty arthritis, hypertension, chest pain, kidney problems, MRSA, rheumatoid arthritis, diabetes mellitus and bilateral carpal tunnel release done in 2001. FAMILY HISTORY: Carcinoma, diabetes mellitus, hypertension and heart disease. SOCIAL HISTORY: The patient had 16 steps to manage to enter the house, had railing in place. She lives with her mother and daughter and granddaughter. ALLERGIES: The patient is known allergic to PENICILLIN, SULFA, ASPIRIN and LISINOPRIL. REVIEW OF SYSTEMS: The patient denies any trouble with urination, but admits some problems with constipation. PHYSICAL EXAMINATION: GENERAL: Today revealed a middle-aged female. She is alert, oriented to time, place, person and circumstance and follows commands appropriately. She is sitting in bedside chair when I examined. MUSCULOSKELETAL: The patient had painful limited movements of her lumbar spine and tenderness to palpation over lumbar spine area. Straight leg raising test is negative bilaterally. The patient had slightly decreased sensory perception over right S1 dermatome area. The patient had 5/5 grade muscle strength overall. Deep tendon reflexes are absent at both knees and ankles. She had tenderness to palpation also over cervical paraspinal and posterior shoulder girdle muscles and anterior aspect of left shoulder. The patient requires minimal assistance with bed mobility and contact guard assistance with transfers and the patient walks with a contact guard assistance using a roller walker for about 100 feet. She admits significant pain while up especially while trying to manage steps. ASSESSMENT: 1. Mobility and self-care limitation in a patient status post lumbar decompression laminectomy for treatment of herniated nucleus pulposus with lumbar radiculitis. 2. Obesity. 3. Diabetes mellitus with peripheral neuropathy. 4. Also history of degenerative joint disease. 5. Gouty arthritis. 6. Hypertension. 7. Rheumatoid arthritis. RECOMMENDATIONS: To ask Occupational Therapy to see her. To ask for a screen for transfer to skilled rehab unit for continued care for a short period of time. Dr. Brumfield, I appreciate asking me to participate in the care of this interesting patient. I will be glad to follow her with you as needed for her rehabilitation. BARBARA JOHN MD DR: KRUNAL/jerome JOB#: [id number] / [id number] Sean Hernandez MD
[2017-10-30 06:35] VITALS: BP 103/60
[2017-10-30] MEDS: PANTOPRAZOLE 40 MG TABLET.DR. PO SCH (07:23)
[2017-10-30] MEDS: FLUTICASONE 50MCG/NASAL SPRAY 16GM BOTTLE. NS SCH (08:03)
[2017-10-30] MEDS: GABAPENTIN 300 MG CAPSULE. PO SCH ×3 (08:04→21:09)
[2017-10-30] MEDS: oxyCODONE ER 10 MG TAB.ER.12H PO SCH ×2 (08:04→21:10)
[2017-10-30] MEDS: POTASSIUM CHLORIDE 20 MEQ TABLET.ER. PO SCH ×3 (08:05→17:05)
[2017-10-30] MEDS: MECLIZINE HCL 12.5 MG TABLET. PO SCH ×3 (08:05→21:08)
[2017-10-30] MEDS: CETIRIZINE HCL 10 MG TABLET. PO SCH (08:05)
[2017-10-30] MEDS: DICYCLOMINE HCL 10 MG CAPSULE PO SCH ×3 (08:05→21:07)
[2017-10-30] MEDS: DOCUSATE SODIUM 100 MG CAPSULE. PO SCH ×2 (08:06→21:07)
[2017-10-30] MEDS: BISACODYL 5 MG TABLET.DR. PO SCH (08:06)
[2017-10-30] MEDS: methylPREDNISolone 4 MG TABLET. PO SCH ×3 (08:06→17:04)
[2017-10-30] MEDS: FUROSEMIDE 40 MG TABLET. PO SCH ×2 (08:06→13:14)
[2017-10-30] MEDS: SENNOSIDES/DOCUSATE 8.6/50MG TABLET. PO SCH ×2 (08:06→21:07)
[2017-10-30] MEDS: INSULIN LISPRO 300 UNITS/3 ML INSULN.PEN. SQ SCH ×6 (08:12→17:13)
[2017-10-30] MEDS: METOPROLOL SUCC 24HR ER 25 MG TAB.ER.24H. PO SCH (09:00)
[2017-10-30] MEDS: LOSARTAN POTASSIUM 25 MG TABLET. PO SCH (09:00)
[2017-10-30] MEDS ORDERED: hydroCHLOROthiazide 25 MG TABLET PO SCH (09:00)
[2017-10-30 09:03] VITALS: BP 103/63
--- NOTE | 2017-10-30 09:56 | PDOC ---
PROGRESS NOTES Subjective Subjective She feels less discomfort this AM.She remains constipated. Objective Objective Vital Signs Date Time Temp Pulse Resp B/P (MAP) Pulse Ox O2 Delivery O2 Flow Rate FiO2 10/30/17 09:03 82 20 103/63 (76) Room Air 10/30/17 06:35 98.3 93 98.3 10/30/17 01:15 2.0 Intake and Output 10/30/17 07:00 Intake Total 1580 ml Output Total 2700 ml Balance -1120 ml Intake Oral 1580 ml Output Urine Total 2700 ml Physical Exam Physical Exam She is alert and walking to bath room with roller walker slowly. She continues with tenderness over lumbar area and she requires some help with bed mobility. She admits severe pain while trying to manage 2 steps. She apparently have to manage 16 stairs at home. Plan Plan of Care To await SNF screen and transfer if qualifies.To work on her constipation. Comment Review of Relevant I have reviewed the following items bimal (where applicable) has been applied. Labs Laboratory Tests Test 10/28/17 11:26 10/28/17 16:08 10/28/17 20:35 10/29/17 06:24 Glucose (Fingerstick) 294 mg/dL (70-99) 141 mg/dL (70-99) 125 mg/dL (70-99) 116 mg/dL (70-99) Test 10/29/17 11:09 10/29/17 16:33 10/29/17 20:58 10/30/17 06:30 Glucose (Fingerstick) 207 mg/dL (70-99) 89 mg/dL (70-99) 117 mg/dL (70-99) 261 mg/dL (70-99) Laboratory Tests Test 10/29/17 11:09 10/29/17 16:33 10/29/17 20:58 10/30/17 06:30 Glucose (Fingerstick) 207 mg/dL (70-99) 89 mg/dL (70-99) 117 mg/dL (70-99) 261 mg/dL (70-99) Medications Current Medications Ondansetron HCl (Zofran) 4 mg PRN Q6HRS PRN IV NAUSEA/VOMITING; Start 10/27/17 at 07:00; Stop 10/27/17 at 15:22; Status DC Fentanyl Citrate (Fentanyl 2ml Vial) 25 mcg PRN Q5MIN PRN IV MILD PAIN Last administered on 10/27/17at 12:55; Start 10/27/17 at 07:00; Stop 10/27/17 at 15:22 ; Status DC Fentanyl Citrate (Fentanyl 2ml Vial) 50 mcg PRN Q5MIN PRN IV MODERATE TO SEVERE PAIN Last administered on 10/27/17at 13:31; Start 10/27/17 at 07:00; Stop 10/27/17 at 15:22; Status DC Morphine Sulfate (Morphine Sulfate) 1 mg PRN Q10MIN PRN IV SEVERE PAIN; Start 10/27/17 at 07:00; Stop 10/27/17 at 15:22; Status DC Ringer's Solution 1,000 ml @ 30 mls/hr Q24H IV Last administered on 10/27/17at 08:03; Start 10/27/17 at 07:00; Stop 10/27/17 at 15:22; Status DC Lidocaine HCl (Xylocaine-Mpf 1% 2ml Vial) 2 ml PRN 1X PRN ID PRIOR TO IV START ; Start 10/27/17 at 07:00; Stop 10/27/17 at 15:22; Status DC Hydromorphone HCl (Dilaudid) 0.5 mg PRN Q10MIN PRN IV SEV PAIN, Second choice; Start 10/27/17 at 07:00; Stop 10/27/17 at 15:22; Status DC Prochlorperazine Edisylate (Compazine) 5 mg PACU PRN PRN IV NAUSEA, MRX1; Start 10/27/17 at 07:00; Stop 10/27/17 at 15:22; Status DC Vancomycin HCl 250 ml @ 250 mls/hr 1X PREOP PRN IV PRIOR TO PROCEDURE Last administered on 10/27/17at 09:05; Start 10/27/17 at 06:00; Stop 10/27/17 at 18:00 ; Status DC Bacitracin 72073 unit/Sodium Chloride 1,000 ml @ 1,000 mls/hr 1X ONCE IRR Last administered on 10/27/17at 09:51; Start 10/27/17 at 06:00; Stop 10/27/17 at 06:59; Status DC Bupivacaine HCl/ Epinephrine Bitart (Sensorcain-Mpf Epi 0.5%-1:696906) 30 ml 1X ONCE INJ Last administered on 10/27/17at 09:51; Start 10/27/17 at 06:30; Stop 10/27/17 at 06:31; Status DC Gelatin (Gelfoam Size 100) 1 each STK-MED ONCE .ROUTE Last administered on 12/04at 09:51; Start 10/27/17 at 06:28; Stop 10/27/17 at 07:29; Status DC Ketorolac Tromethamine (Toradol For Or Only) 60 mg STK-MED ONCE .ROUTE Last administered on 10/27/17at 09:51; Start 10/27/17 at 06:28; Stop 10/27/17 at 07:29 ; Status DC Thrombin 20,000 unit STK-MED ONCE TP Last administered on 10/27/17at 09:51; Start 10/27/17 at 06:28; Stop 10/27/17 at 07:29; Status DC Rocuronium [place] (Zemuron) 50 mg STK-MED ONCE .ROUTE ; Start 10/27/17 at 08:10 ; Stop 10/27/17 at 08:11; Status DC Ephedrine Sulfate (ePHEDrine PF IN SALINE SYRINGE) 50 mg STK-MED ONCE IV ; Start 10/27/17 at 08:11; Stop 10/27/17 at 08:12; Status DC Fentanyl Citrate (Fentanyl 2ml Vial) 100 mcg STK-MED ONCE .ROUTE ; Start at 08:12; Stop 10/27/17 at 08:13; Status DC Remifentanil HCl (Ultiva) 2 mg STK-MED ONCE IV ; Start 10/27/17 at 08:13; Stop 10/27/17 at 08:14; Status DC Succinylcholine Chloride (Anectine) 200 mg STK-MED ONCE .ROUTE ; Start 10/27/17 at 08:14; Stop 10/27/17 at 08:15; Status DC Glycopyrrolate (Robinul) 1 mg STK-MED ONCE .ROUTE ; Start 10/27/17 at 09:26; Stop 10/27/17 at 09:27; Status DC Dexamethasone Sodium Phosphate (Decadron) 20 mg STK-MED ONCE .ROUTE ; Start 12/04 at 09:29; Stop 10/27/17 at 09:30; Status DC Ondansetron HCl (Zofran) 4 mg STK-MED ONCE .ROUTE ; Start 10/27/17 at 09:29; Stop 10/27/17 at 09:30; Status DC Propofol 20 ml @ As Directed STK-MED ONCE IV ; Start 10/27/17 at 09:29; Stop 12/04 at 09:30; Status DC Lidocaine HCl (Lidocaine Pf 2% Vial) 5 ml STK-MED ONCE .ROUTE ; Start 10/27/17 at 09:29; Stop 10/27/17 at 09:30; Status DC Neostigmine Methylsulfate (Neostigmine Methylsulfate) 5 mg STK-MED ONCE .ROUTE ; Start 10/27/17 at 09:36; Stop 10/27/17 at 09:37; Status DC Acetaminophen (Tylenol) 650 mg PRN Q6HRS PRN PO MILD PAIN / TEMP Last administered on 10/28/17at 02:50; Start 10/27/17 at 13:30 Al Hydroxide/Mg Hydroxide (Mylanta Plus Xs) 30 ml PRN Q3HRS PRN PO HEARTBURN / GAS; Start 10/27/17 at 13:30 Calcium Carbonate/ Glycine (Tums) 500 mg PRN Q3HRS PRN PO INDIGESTION; Start at 13:30 Diphenhydramine HCl (Benadryl) 25 mg PRN Q6HRS PRN PO ITCHING; Start 10/27/17 at 13:30 Diphenhydramine HCl (Benadryl) 25 mg PRN Q6HRS PRN IV ITCHING; Start 10/27/17 at 13:30 Sodium Chloride (Normal Saline Flush) 3 ml QSHIFT PRN IV AFTER MEDS AND BLOOD DRAWS; Start 10/27/17 at 13:30 Potassium Chloride/Sodium Chloride 1,000 ml @ 75 mls/hr [id number] IV Last administered on 10/27/17at 19:38; Start 10/27/17 at 13:22; Stop 10/29/17 at 07:16 ; Status DC Docusate Sodium (Colace) 100 mg BID PO Last administered on 10/30/17at 08:06; Start 10/27/17 at 21:00 Magnesium Hydroxide (Milk Of Magnesia) 2,400 mg PRN Q12HR PRN PO CONSTIPATION; Start 10/27/17 at 13:30 Dextrose (Dextrose 50%-Water Syringe) 12.5 gm PRN Q15MIN PRN IV SEE COMMENTS; Start 10/27/17 at 13:30; Stop 10/29/17 at 12:45; Status DC Fentanyl Citrate (Fentanyl 2ml Vial) 50 mcg PRN Q2HR PRN IV SEVERE PAIN; Start 10/27/17 at 13:30 Cetirizine HCl (ZyrTEC) 10 mg DAILY PO Last administered on 10/30/17 08:05; Start 10/27/17 at 14:00 Dicyclomine HCl (Bentyl) 10 mg TID PO Last administered on 10/30/17 08:05; Start 10/27/17 at 14:00 Ergocalciferol (Vitamin D2) 50,000 unit We PO Last administered on 10/29/17 11 :03; Start 10/29/17 at 09:00 Furosemide (Lasix) 40 mg BID92 PO Last administered on 10/30/17 08:06; Start 10/27/17 at 14:00 Lactulose (Lactulose) 10 gm PRN TID PRN PO CONSTIPATION; Start 10/27/17 at 13: 30 Losartan Potassium (Cozaar) 25 mg DAILY PO ; Start 10/27/17 at 14:00 Metoprolol Succinate (Toprol Xl) 25 mg DAILY PO ; Start 10/27/17 at 14:00 Oxycodone/ Acetaminophen (Percocet 10/325) 1 tab PRN TID PRN PO SEVERE PAIN Last administered on 10/29/17 16:39; Start 10/27/17 at 13:30 Pantoprazole Sodium (Protonix) 40 mg DAILY07 PO Last administered on 10/30/17 07:23; Start 10/27/17 at 16:30 Trazodone HCl (Desyrel) 50 mg DAILYWSUP PO Last administered on 10/29/17 16:39 ; Start 10/27/17 at 17:00 Fluticasone Propionate (Flonase) 1 spray DAILY NS Last administered on 08:03; Start 10/28/17 at 09:00 Gabapentin (Neurontin) 600 mg TID PO Last administered on 10/30/17 08:04; Start 10/27/17 at 14:00 Hydrochlorothiazide (Hydrodiuril) 25 mg Th PO Last administered on 10/30/17 08 :06; Start 10/30/17 at 09:00 Insulin Glargine (Lantus) 80 units QHS SQ Last administered on 10/29/17 21:20 ; Start 10/27/17 at 21:00 Insulin Human Lispro (HumaLOG) 38 units TIDWMEALS SQ Last administered on 08:12; Start 10/27/17 at 17:00 Non-Formulary Medication (Liraglutide (Victoza 3-Calvin)) 1.8 mg DAILY SQ ; Start 10/28/17 at 09:00; Stop 10/28/17 at 09:00; Status DC Magnesium Oxide (Magnesium Oxide) 400 mg QHS PO Last administered on 10/29/17 21:12; Start 10/28/17 at 21:00 Meclizine HCl (Antivert) 25 mg TID PO Last administered on 10/30/17 08:05; Start 10/27/17 at 14:00 Oxycodone HCl (OxyCONTIN) 30 mg Q12HR PO Last administered on 10/30/17 08:04; Start 10/27/17 at 21:00 Potassium Chloride (Klor-Con) 20 meq TIDAFTMEAL PO Last administered on 08:05; Start 10/27/17 at 14:00 Ropinirole HCl (Requip) 0.5 mg QHS PO Last administered on 10/29/17 21:12; Start 10/27/17 at 21:00 Atorvastatin Calcium (Lipitor) 80 mg QHS PO Last administered on 10/29/17 21: 12; Start 10/27/17 at 21:00 Tizanidine HCl (Zanaflex) 4 mg PRN TID PRN PO MUSCLE SPASMS Last administered on 10/27/17 19:20; Start 10/27/17 at 14:00 Methylprednisolone (Medrol) 8 mg BID@1300,2100 PO Last administered on at 21:11; Start 10/29/17 at 13:00; Stop 10/29/17 at 21:01; Status DC Methylprednisolone (Medrol) 4 mg BID@1600,1900 PO Last administered on at 18:22; Start 10/29/17 at 16:00; Stop 10/29/17 at 19:01; Status DC Methylprednisolone (Medrol) 4 mg TIDPC PO Last administered on 10/30/17at 08:06 ; Start 10/30/17 at 08:30; Stop 10/30/17 at 17:31 Methylprednisolone (Medrol) 8 mg QHS PO ; Start 10/30/17 at 21:00; Stop at 21:01 Methylprednisolone (Medrol) 4 mg QIDAFTMEAL PO ; Start 10/31/17 at 09:00; Stop 10/31/17 at 21:01 Methylprednisolone (Medrol) 4 mg TID PO ; Start 11/01/17 at 09:00; Stop at 21:01 Methylprednisolone (Medrol) 4 mg BID PO ; Start 11/02/17 at 09:00; Stop at 21:01 Methylprednisolone (Medrol) 4 mg DAILY PO ; Start 11/03/17 at 09:00; Stop at 09:01 Insulin Human Lispro (HumaLOG) 0-5 UNITS TIDWMEALS SQ Last administered on 10/30at 08:13; Start 10/29/17 at 17:00 Dextrose (Dextrose 50%-Water Syringe) 12.5 gm PRN Q15MIN PRN IV SEE COMMENTS; Start 10/29/17 at 12:45 Bisacodyl (Dulcolax Tab) 10 mg DAILY PO Last administered on 10/30/17at 08:06; Start 10/29/17 at 18:00 Magnesium Hydroxide (Milk Of Magnesia) 2,400 mg 1X ONCE PO Last administered on 10/29/17at 18:19; Start 10/29/17 at 17:15; Stop 10/29/17 at 17:22; Status DC Senna/Docusate Sodium (Senna Plus) 1 tab BID PO Last administered on 10/30/17at 08:06; Start 10/29/17 at 21:00 Active Scripts Active Reported Vitamin D2 (Ergocalciferol (Vitamin D2)) 50,000 Unit Capsule 50,000 Unit PO WEEKLY Potassium Chloride 20 Meq Tablet.er 20 Meq PO TID Hydrochlorothiazide Tablet (Hydrochlorothiazide) 50 Mg Tablet 25 Mg PO WEEKLY Zyrtec (Cetirizine Hcl) 10 Mg Tablet 10 Mg PO Toprol Xl (Metoprolol Succinate) 25 Mg Tab.er.24h 25 Mg PO DAILY Lactulose 20 Gm/30 Ml Solution 10 Gm PO PRN TID PRN Lidocaine 1 Each Adh..patch 1 Each TP Tizanidine Hcl 4 Mg Tablet 4 Mg PO TID PRN Losartan Potassium 25 Mg Tablet 25 Mg PO DAILY Dicyclomine Hcl 10 Mg Capsule 10 Mg PO TID Victoza 3-Calvin (Liraglutide) 0.6 Mg/0.1 Ml Pen.injctr 1.8 Mg SQ DAILY Protonix (Pantoprazole Sodium) 40 Mg Tablet.dr 40 Mg PO DAILY Flonase Allergy Relief (Fluticasone Propionate) 9.9 Ml [place].susp 1 Sprays NS DAILY Percocet 10-325 Mg Tablet (Oxycodone/Acetaminophen) 1 Each Tablet 1 Each PO PRN TID PRN Gabapentin 300 Mg Capsule 600 Mg PO TID Requip (Ropinirole Hcl) 0.5 Mg Tablet 0.5 Mg PO HS Levemir (Insulin Detemir) 100 Unit/1 Ml Vial 80 Unit SQ HS Furosemide 40 Mg Tablet 40 Mg PO BID Magnesium Oxide 400 Mg Tablet 400 Mg PO HS Meclizine Hcl 25 Mg Tab.chew 25 Mg PO TID Trazodone Hcl 50 Mg Tablet 50 Mg PO DAILYWSUP Humalog (Insulin Lispro) 100 Unit/1 Ml Cartridge 38 Unit SQ TIDAC Crestor (Rosuvastatin Calcium) 20 Mg Tablet 20 Mg PO HS Oxycontin (Oxycodone HCl) 80 Mg Tab.er.12h 30 Mg PO BID Vitals/I & O Vital Sign - Last 24 Hours 10/29/17 10/29/17 10/29/17 10/29/17 11:04 13:21 16:39 17:47 Temp 98.3 98.8 98.3 98.8 Pulse 75 80 86 B/P (MAP) 103/66 (78) 114/72 (86) 79/48 (58) Pulse Ox 95 92 O2 Delivery Room Air Room Air Room Air 10/29/17 10/29/17 10/29/17 10/29/17 18:20 19:15 20:00 21:13 Temp 98.3 98.3 Pulse 80 Resp 20 20 B/P (MAP) 113/72 (86) Pulse Ox 94 94 O2 Delivery Room Air Room Air Room Air Room Air 10/29/17 10/30/17 10/30/17 10/30/17 21:15 01:15 06:35 08:00 Temp 98.3 98.3 Pulse 71 78 Resp 20 18 20 B/P (MAP) 108/53 (71) 103/60 (74) Pulse Ox 94 94 93 O2 Delivery Room Air Nasal Cannula Room Air Room Air O2 Flow Rate 2.0 10/30/17 10/30/17 08:04 09:03 Pulse 82 Resp 20 20 B/P (MAP) 103/63 (76) O2 Delivery Room Air Room Air Intake and Output 10/29/17 10/29/17 10/30/17 15:00 23:00 07:00 Intake Total 880 ml 700 ml Output Total 800 ml 1900 ml Balance 80 ml -1200 ml BARBARA JOHN MD Oct 30, 2017 09:56
[2017-10-30] MEDS ORDERED: MAGNESIUM CITRATE 296 ML SOLUTION. PO PRN (10:00)
[2017-10-30 11:13] VITALS: BP 124/81
[2017-10-30] MEDS: oxyCODONE/APAP 10/325 1 TAB TABLET PO PRN ×2 (11:37→17:06)
--- NOTE | 2017-10-30 14:19 | PDOC ---
PROGRESS NOTES Subjective Subjective patient seen at 1230 sitting up in bed pain improved today still some left leg pain when up ambulating Objective Objective Vital Signs Date Time Temp Pulse Resp B/P (MAP) Pulse Ox O2 Delivery O2 Flow Rate FiO2 10/30/17 12:30 20 Room Air 10/30/17 11:13 99.7 87 124/81 (95) 99.7 10/30/17 06:35 93 10/30/17 01:15 2.0 Intake and Output 10/30/17 07:00 Intake Total 1580 ml Output Total 2700 ml Balance -1120 ml Intake Oral 1580 ml Output Urine Total 2700 ml Physical Exam General: Alert, Oriented X3, Cooperative, No acute distress MUSCULOSKELETAL: Other (GOLD) Skin: Other (Incision dry and intact) Plan Plan of Care encouraged increased activity as tolerated PT Home tomorrow with Home health Comment Review of Relevant I have reviewed the following items bimal (where applicable) has been applied. Labs Laboratory Tests Test 10/28/17 16:08 10/28/17 20:35 10/29/17 06:24 10/29/17 11:09 Glucose (Fingerstick) 141 mg/dL (70-99) 125 mg/dL (70-99) 116 mg/dL (70-99) 207 mg/dL (70-99) Test 10/29/17 16:33 10/29/17 20:58 10/30/17 06:30 10/30/17 11:06 Glucose (Fingerstick) 89 mg/dL (70-99) 117 mg/dL (70-99) 261 mg/dL (70-99) 340 mg/dL (70-99) Laboratory Tests Test 10/29/17 16:33 10/29/17 20:58 10/30/17 06:30 10/30/17 11:06 Glucose (Fingerstick) 89 mg/dL (70-99) 117 mg/dL (70-99) 261 mg/dL (70-99) 340 mg/dL (70-99) Medications Current Medications Ondansetron HCl (Zofran) 4 mg PRN Q6HRS PRN IV NAUSEA/VOMITING; Start 10/27/17 at 07:00; Stop 10/27/17 at 15:22; Status DC Fentanyl Citrate (Fentanyl 2ml Vial) 25 mcg PRN Q5MIN PRN IV MILD PAIN Last administered on 10/27/17at 12:55; Start 10/27/17 at 07:00; Stop 10/27/17 at 15:22 ; Status DC Fentanyl Citrate (Fentanyl 2ml Vial) 50 mcg PRN Q5MIN PRN IV MODERATE TO SEVERE PAIN Last administered on 10/27/17at 13:31; Start 10/27/17 at 07:00; Stop 10/27/17 at 15:22; Status DC Morphine Sulfate (Morphine Sulfate) 1 mg PRN Q10MIN PRN IV SEVERE PAIN; Start 10/27/17 at 07:00; Stop 10/27/17 at 15:22; Status DC Ringer's Solution 1,000 ml @ 30 mls/hr Q24H IV Last administered on 10/27/17at 08:03; Start 10/27/17 at 07:00; Stop 10/27/17 at 15:22; Status DC Lidocaine HCl (Xylocaine-Mpf 1% 2ml Vial) 2 ml PRN 1X PRN ID PRIOR TO IV START ; Start 10/27/17 at 07:00; Stop 10/27/17 at 15:22; Status DC Hydromorphone HCl (Dilaudid) 0.5 mg PRN Q10MIN PRN IV SEV PAIN, Second choice; Start 10/27/17 at 07:00; Stop 10/27/17 at 15:22; Status DC Prochlorperazine Edisylate (Compazine) 5 mg PACU PRN PRN IV NAUSEA, MRX1; Start 10/27/17 at 07:00; Stop 10/27/17 at 15:22; Status DC Vancomycin HCl 250 ml @ 250 mls/hr 1X PREOP PRN IV PRIOR TO PROCEDURE Last administered on 10/27/17at 09:05; Start 10/27/17 at 06:00; Stop 10/27/17 at 18:00 ; Status DC Bacitracin 70306 unit/Sodium Chloride 1,000 ml @ 1,000 mls/hr 1X ONCE IRR Last administered on 10/27/17at 09:51; Start 10/27/17 at 06:00; Stop 10/27/17 at 06:59; Status DC Bupivacaine HCl/ Epinephrine Bitart (Sensorcain-Mpf Epi 0.5%-1:[id number]) 30 ml 1X ONCE INJ Last administered on 10/27/17at 09:51; Start 10/27/17 at 06:30; Stop 10/27/17 at 06:31; Status DC Gelatin (Gelfoam Size 100) 1 each STK-MED ONCE .ROUTE Last administered on 12/04at 09:51; Start 10/27/17 at 06:28; Stop 10/27/17 at 07:29; Status DC Ketorolac Tromethamine (Toradol For Or Only) 60 mg STK-MED ONCE .ROUTE Last administered on 10/27/17at 09:51; Start 10/27/17 at 06:28; Stop 10/27/17 at 07:29 ; Status DC Thrombin 20,000 unit STK-MED ONCE TP Last administered on 10/27/17at 09:51; Start 10/27/17 at 06:28; Stop 10/27/17 at 07:29; Status DC Rocuronium Cos[place] (Zemuron) 50 mg STK-MED ONCE .ROUTE ; Start 10/27/17 at 08:10 ; Stop 10/27/17 at 08:11; Status DC Ephedrine Sulfate (ePHEDrine PF IN SALINE SYRINGE) 50 mg STK-MED ONCE IV ; Start 10/27/17 at 08:11; Stop 10/27/17 at 08:12; Status DC Fentanyl Citrate (Fentanyl 2ml Vial) 100 mcg STK-MED ONCE .ROUTE ; Start at 08:12; Stop 10/27/17 at 08:13; Status DC Remifentanil HCl (Ultiva) 2 mg STK-MED ONCE IV ; Start 10/27/17 at 08:13; Stop 10/27/17 at 08:14; Status DC Succinylcholine Chloride (Anectine) 200 mg STK-MED ONCE .ROUTE ; Start 10/27/17 at 08:14; Stop 10/27/17 at 08:15; Status DC Glycopyrrolate (Robinul) 1 mg STK-MED ONCE .ROUTE ; Start 10/27/17 at 09:26; Stop 10/27/17 at 09:27; Status DC Dexamethasone Sodium Phosphate (Decadron) 20 mg STK-MED ONCE .ROUTE ; Start 12/04 at 09:29; Stop 10/27/17 at 09:30; Status DC Ondansetron HCl (Zofran) 4 mg STK-MED ONCE .ROUTE ; Start 10/27/17 at 09:29; Stop 10/27/17 at 09:30; Status DC Propofol 20 ml @ As Directed STK-MED ONCE IV ; Start 10/27/17 at 09:29; Stop 12/04 at 09:30; Status DC Lidocaine HCl (Lidocaine Pf 2% Vial) 5 ml STK-MED ONCE .ROUTE ; Start 10/27/17 at 09:29; Stop 10/27/17 at 09:30; Status DC Neostigmine Methylsulfate (Neostigmine Methylsulfate) 5 mg STK-MED ONCE .ROUTE ; Start 10/27/17 at 09:36; Stop 10/27/17 at 09:37; Status DC Acetaminophen (Tylenol) 650 mg PRN Q6HRS PRN PO MILD PAIN / TEMP Last administered on 10/28/17at 02:50; Start 10/27/17 at 13:30 Al Hydroxide/Mg Hydroxide (Mylanta Plus Xs) 30 ml PRN Q3HRS PRN PO HEARTBURN / GAS; Start 10/27/17 at 13:30 Calcium Carbonate/ Glycine (Tums) 500 mg PRN Q3HRS PRN PO INDIGESTION; Start at 13:30 Diphenhydramine HCl (Benadryl) 25 mg PRN Q6HRS PRN PO ITCHING; Start 10/27/17 at 13:30 Diphenhydramine HCl (Benadryl) 25 mg PRN Q6HRS PRN IV ITCHING; Start 10/27/17 at 13:30 Sodium Chloride (Normal Saline Flush) 3 ml QSHIFT PRN IV AFTER MEDS AND BLOOD DRAWS; Start 10/27/17 at 13:30 Potassium Chloride/Sodium Chloride 1,000 ml @ 75 mls/hr [id number] IV Last administered on 10/27/17at 19:38; Start 10/27/17 at 13:22; Stop 10/29/17 at 07:16 ; Status DC Docusate Sodium (Colace) 100 mg BID PO Last administered on 10/30/17at 08:06; Start 10/27/17 at 21:00 Magnesium Hydroxide (Milk Of Magnesia) 2,400 mg PRN Q12HR PRN PO CONSTIPATION; Start 10/27/17 at 13:30 Dextrose (Dextrose 50%-Water Syringe) 12.5 gm PRN Q15MIN PRN IV SEE COMMENTS; Start 10/27/17 at 13:30; Stop 10/29/17 at 12:45; Status DC Fentanyl Citrate (Fentanyl 2ml Vial) 50 mcg PRN Q2HR PRN IV SEVERE PAIN; Start 10/27/17 at 13:30 Cetirizine HCl (ZyrTEC) 10 mg DAILY PO Last administered on 10/30/17at 08:05; Start 10/27/17 at 14:00 Dicyclomine HCl (Bentyl) 10 mg TID PO Last administered on 10/30/17 13:14; Start 10/27/17 at 14:00 Ergocalciferol (Vitamin D2) 50,000 unit We PO Last administered on 10/29/17 11 :03; Start 10/29/17 at 09:00 Furosemide (Lasix) 40 mg BID92 PO Last administered on 10/30/17at 13:14; Start 10/27/17 at 14:00 Lactulose (Lactulose) 10 gm PRN TID PRN PO CONSTIPATION; Start 10/27/17 at 13: 30 Losartan Potassium (Cozaar) 25 mg DAILY PO ; Start 10/27/17 at 14:00 Metoprolol Succinate (Toprol Xl) 25 mg DAILY PO ; Start 10/27/17 at 14:00 Oxycodone/ Acetaminophen (Percocet 10/325) 1 tab PRN TID PRN PO SEVERE PAIN Last administered on 10/30/17at 11:37; Start 10/27/17 at 13:30 Pantoprazole Sodium (Protonix) 40 mg DAILY07 PO Last administered on 10/30/17 07:23; Start 10/27/17 at 16:30 Trazodone HCl (Desyrel) 50 mg DAILYWSUP PO Last administered on 10/29/17at 16:39 ; Start 10/27/17 at 17:00 Fluticasone Propionate (Flonase) 1 spray DAILY NS Last administered on 08:03; Start 10/28/17 at 09:00 Gabapentin (Neurontin) 600 mg TID PO Last administered on 10/30/17at 13:14; Start 10/27/17 at 14:00 Hydrochlorothiazide (Hydrodiuril) 25 mg Th PO Last administered on 10/30/17 08 :06; Start 10/30/17 at 09:00 Insulin Glargine (Lantus) 80 units QHS SQ Last administered on 10/29/17 21:20 ; Start 10/27/17 at 21:00 Insulin Human Lispro (HumaLOG) 38 units TIDWMEALS SQ Last administered on at 11:41; Start 10/27/17 at 17:00 Non-Formulary Medication (Liraglutide (Victoza 3-Calvin)) 1.8 mg DAILY SQ ; Start 10/28/17 at 09:00; Stop 10/28/17 at 09:00; Status DC Magnesium Oxide (Magnesium Oxide) 400 mg QHS PO Last administered on 10/29/17 21:12; Start 10/28/17 at 21:00 Meclizine HCl (Antivert) 25 mg TID PO Last administered on 10/30/17 13:14; Start 10/27/17 at 14:00 Oxycodone HCl (OxyCONTIN) 30 mg Q12HR PO Last administered on 10/30/17 08:04; Start 10/27/17 at 21:00 Potassium Chloride (Klor-Con) 20 meq TIDAFTMEAL PO Last administered on 11:37; Start 10/27/17 at 14:00 Ropinirole HCl (Requip) 0.5 mg QHS PO Last administered on 10/29/17 21:12; Start 10/27/17 at 21:00 Atorvastatin Calcium (Lipitor) 80 mg QHS PO Last administered on 10/29/17 21: 12; Start 10/27/17 at 21:00 Tizanidine HCl (Zanaflex) 4 mg PRN TID PRN PO MUSCLE SPASMS Last administered on 10/27/17 19:20; Start 10/27/17 at 14:00 Methylprednisolone (Medrol) 8 mg BID@1300,2100 PO Last administered on 21:11; Start 10/29/17 at 13:00; Stop 10/29/17 at 21:01; Status DC Methylprednisolone (Medrol) 4 mg BID@1600,1900 PO Last administered on 9/12/ 18at 18:22; Start 10/29/17 at 16:00; Stop 10/29/17 at 19:01; Status DC Methylprednisolone (Medrol) 4 mg TIDPC PO Last administered on 10/30/17at 11:37 ; Start 10/30/17 at 08:30; Stop 10/30/17 at 17:31 Methylprednisolone (Medrol) 8 mg QHS PO ; Start 10/30/17 at 21:00; Stop at 21:01 Methylprednisolone (Medrol) 4 mg QIDAFTMEAL PO ; Start 10/31/17 at 09:00; Stop 10/31/17 at 21:01 Methylprednisolone (Medrol) 4 mg TID PO ; Start 11/01/17 at 09:00; Stop at 21:01 Methylprednisolone (Medrol) 4 mg BID PO ; Start 11/02/17 at 09:00; Stop at 21:01 Methylprednisolone (Medrol) 4 mg DAILY PO ; Start 11/03/17 at 09:00; Stop at 09:01 Insulin Human Lispro (HumaLOG) 0-5 UNITS TIDWMEALS SQ Last administered on 10/30at 11:42; Start 10/29/17 at 17:00 Dextrose (Dextrose 50%-Water Syringe) 12.5 gm PRN Q15MIN PRN IV SEE COMMENTS; Start 10/29/17 at 12:45 Bisacodyl (Dulcolax Tab) 10 mg DAILY PO Last administered on 10/30/17at 08:06; Start 10/29/17 at 18:00 Magnesium Hydroxide (Milk Of Magnesia) 2,400 mg 1X ONCE PO Last administered on 10/29/17at 18:19; Start 10/29/17 at 17:15; Stop 10/29/17 at 17:22; Status DC Senna/Docusate Sodium (Senna Plus) 1 tab BID PO Last administered on 10/30/17at 08:06; Start 10/29/17 at 21:00 Magnesium Citrate (Citroma) 296 ml PRN 1X PRN PO CONSTIPATION; Start 10/30/17 at 10:00 Active Scripts Active Reported Vitamin D2 (Ergocalciferol (Vitamin D2)) 50,000 Unit Capsule 50,000 Unit PO WEEKLY Potassium Chloride 20 Meq Tablet.er 20 Meq PO TID Hydrochlorothiazide Tablet (Hydrochlorothiazide) 50 Mg Tablet 25 Mg PO WEEKLY Zyrtec (Cetirizine Hcl) 10 Mg Tablet 10 Mg PO Toprol Xl (Metoprolol Succinate) 25 Mg Tab.er.24h 25 Mg PO DAILY Lactulose 20 Gm/30 Ml Solution 10 Gm PO PRN TID PRN Lidocaine 1 Each Adh..patch 1 Each TP Tizanidine Hcl 4 Mg Tablet 4 Mg PO TID PRN Losartan Potassium 25 Mg Tablet 25 Mg PO DAILY Dicyclomine Hcl 10 Mg Capsule 10 Mg PO TID Victoza 3-Calvin (Liraglutide) 0.6 Mg/0.1 Ml Pen.injctr 1.8 Mg SQ DAILY Protonix (Pantoprazole Sodium) 40 Mg Tablet.dr 40 Mg PO DAILY Flonase Allergy Relief (Fluticasone Propionate) 9.9 Ml [place].susp 1 Sprays NS DAILY Percocet 10-325 Mg Tablet (Oxycodone/Acetaminophen) 1 Each Tablet 1 Each PO PRN TID PRN Gabapentin 300 Mg Capsule 600 Mg PO TID Requip (Ropinirole Hcl) 0.5 Mg Tablet 0.5 Mg PO HS Levemir (Insulin Detemir) 100 Unit/1 Ml Vial 80 Unit SQ HS Furosemide 40 Mg Tablet 40 Mg PO BID Magnesium Oxide 400 Mg Tablet 400 Mg PO HS Meclizine Hcl 25 Mg Tab.chew 25 Mg PO TID Trazodone Hcl 50 Mg Tablet 50 Mg PO DAILYWSUP Humalog (Insulin Lispro) 100 Unit/1 Ml Cartridge 38 Unit SQ TIDAC Crestor (Rosuvastatin Calcium) 20 Mg Tablet 20 Mg PO HS Oxycontin (Oxycodone HCl) 80 Mg Tab.er.12h 30 Mg PO BID Vitals/I & O Vital Sign - Last 24 Hours 10/29/17 10/29/17 10/29/17 10/29/17 16:39 17:47 19:15 20:00 Temp 98.8 98.3 98.8 98.3 Pulse 86 80 Resp 20 B/P (MAP) 79/48 (58) 113/72 (86) Pulse Ox 92 94 O2 Delivery Room Air Room Air Room Air Room Air 10/29/17 10/29/17 10/30/17 10/30/17 21:13 21:15 01:15 06:35 Temp 98.3 98.3 Pulse 71 78 Resp 20 20 18 20 B/P (MAP) 108/53 (71) 103/60 (74) Pulse Ox 94 94 94 93 O2 Delivery Room Air Room Air Nasal Cannula Room Air O2 Flow Rate 2.0 10/30/17 10/30/17 10/30/17 10/30/17 08:00 08:04 09:00 09:03 Pulse 82 82 Resp 20 20 B/P (MAP) 103/63 103/63 (76) O2 Delivery Room Air Room Air Room Air 10/30/17 10/30/17 10/30/17 11:13 11:37 12:30 Temp 99.7 99.7 Pulse 87 Resp 20 20 20 B/P (MAP) 124/81 (95) O2 Delivery Room Air Room Air Intake and Output 10/29/17 10/29/17 10/30/17 15:00 23:00 07:00 Intake Total 880 ml 700 ml Output Total 800 ml 1900 ml Balance 80 ml -1200 ml LAILA CRAIG [employer] ATTEND[employer] Oct 30, 2017 14:19
[2017-10-30 15:16] VITALS: BP 113/67
[2017-10-30] MEDS: traZODone 50 MG TABLET. PO SCH (17:04)
[2017-10-30 17:52] VITALS: BP 128/58
[2017-10-30] MEDS ORDERED: methylPREDNISolone 4 MG TABLET. PO SCH (21:00)
[2017-10-30] MEDS: rOPINIRole 0.25 MG TABLET. PO SCH (21:07)
[2017-10-30] MEDS: ATORVASTATIN CALCIUM 40 MG TABLET. PO SCH (21:08)
[2017-10-30] MEDS: MAGNESIUM OXIDE 400 MG TABLET PO SCH (21:08)
[2017-10-30] MEDS: INSULIN GLARGINE 300 UNITS/3 ML INSULN.PEN. SQ SCH (21:28)
[2017-10-31 06:37] VITALS: BP 126/63
[2017-10-31] MEDS: PANTOPRAZOLE 40 MG TABLET.DR. PO SCH (06:37)
[2017-10-31] MEDS: FLUTICASONE 50MCG/NASAL SPRAY 16GM BOTTLE. NS SCH (08:17)
[2017-10-31] MEDS: POTASSIUM CHLORIDE 20 MEQ TABLET.ER. PO SCH ×2 (08:18→11:49)
[2017-10-31] MEDS: DOCUSATE SODIUM 100 MG CAPSULE. PO SCH (08:18)
[2017-10-31] MEDS: methylPREDNISolone 4 MG TABLET. PO SCH ×2 (08:19→11:49)
[2017-10-31] MEDS: oxyCODONE/APAP 10/325 1 TAB TABLET PO PRN ×2 (08:19→13:24)
[2017-10-31] MEDS: MECLIZINE HCL 12.5 MG TABLET. PO SCH ×2 (08:19→13:24)
[2017-10-31] MEDS: SENNOSIDES/DOCUSATE 8.6/50MG TABLET. PO SCH (08:19)
[2017-10-31] MEDS: DICYCLOMINE HCL 10 MG CAPSULE PO SCH ×2 (08:19→13:24)
[2017-10-31] MEDS: FUROSEMIDE 40 MG TABLET. PO SCH ×2 (08:20→13:28)
[2017-10-31] MEDS: CETIRIZINE HCL 10 MG TABLET. PO SCH (08:20)
[2017-10-31] MEDS: GABAPENTIN 300 MG CAPSULE. PO SCH ×2 (08:20→13:24)
[2017-10-31] MEDS: oxyCODONE ER 10 MG TAB.ER.12H PO SCH (08:21)
[2017-10-31] MEDS: BISACODYL 5 MG TABLET.DR. PO SCH (08:21)
[2017-10-31] MEDS: INSULIN LISPRO 300 UNITS/3 ML INSULN.PEN. SQ SCH ×4 (08:25→11:54)
[2017-10-31] MEDS: LOSARTAN POTASSIUM 25 MG TABLET. PO SCH (09:00)
--- NOTE | 2017-10-31 09:07 | PDOC ---
PROGRESS NOTES Subjective Subjective She feels better but still some soreness at surgical site with movement and severe pain while trying to manage stairs. Objective Objective Vital Signs Date Time Temp Pulse Resp B/P (MAP) Pulse Ox O2 Delivery O2 Flow Rate FiO2 10/31/17 08:21 20 10/31/17 06:37 98.3 61 126/63 (84) 92 Room Air 98.3 10/30/17 20:00 2.0 Intake and Output 10/31/17 07:00 Intake Total 1040 ml Output Total 2400 ml Balance -1360 ml Intake Oral 1040 ml Output Urine Total 2400 ml Physical Exam Physical Exam She is sitting in bedside chair and does not seem to be in any distress. She is getting up and walking with roller walker. Plan Plan of Care To SNF for a short stay to work on stairs.To work on her constipation. Comment Review of Relevant I have reviewed the following items bimal (where applicable) has been applied. Labs Laboratory Tests Test 10/29/17 11:09 10/29/17 16:33 10/29/17 20:58 10/30/17 06:30 Glucose (Fingerstick) 207 mg/dL (70-99) 89 mg/dL (70-99) 117 mg/dL (70-99) 261 mg/dL (70-99) Test 10/30/17 11:06 10/30/17 16:28 10/30/17 21:12 10/31/17 06:30 Glucose (Fingerstick) 340 mg/dL (70-99) 295 mg/dL (70-99) 244 mg/dL (70-99) 193 mg/dL (70-99) Laboratory Tests Test 10/30/17 11:06 10/30/17 16:28 10/30/17 21:12 10/31/17 06:30 Glucose (Fingerstick) 340 mg/dL (70-99) 295 mg/dL (70-99) 244 mg/dL (70-99) 193 mg/dL (70-99) Medications Current Medications Ondansetron HCl (Zofran) 4 mg PRN Q6HRS PRN IV NAUSEA/VOMITING; Start 10/27/17 at 07:00; Stop 10/27/17 at 15:22; Status DC Fentanyl Citrate (Fentanyl 2ml Vial) 25 mcg PRN Q5MIN PRN IV MILD PAIN Last administered on 10/27/17at 12:55; Start 10/27/17 at 07:00; Stop 10/27/17 at 15:22 ; Status DC Fentanyl Citrate (Fentanyl 2ml Vial) 50 mcg PRN Q5MIN PRN IV MODERATE TO SEVERE PAIN Last administered on 10/27/17at 13:31; Start 10/27/17 at 07:00; Stop 10/27/17 at 15:22; Status DC Morphine Sulfate (Morphine Sulfate) 1 mg PRN Q10MIN PRN IV SEVERE PAIN; Start 10/27/17 at 07:00; Stop 10/27/17 at 15:22; Status DC Ringer's Solution 1,000 ml @ 30 mls/hr Q24H IV Last administered on 10/27/17at 08:03; Start 10/27/17 at 07:00; Stop 10/27/17 at 15:22; Status DC Lidocaine HCl (Xylocaine-Mpf 1% 2ml Vial) 2 ml PRN 1X PRN ID PRIOR TO IV START ; Start 10/27/17 at 07:00; Stop 10/27/17 at 15:22; Status DC Hydromorphone HCl (Dilaudid) 0.5 mg PRN Q10MIN PRN IV SEV PAIN, Second choice; Start 10/27/17 at 07:00; Stop 10/27/17 at 15:22; Status DC Prochlorperazine Edisylate (Compazine) 5 mg PACU PRN PRN IV NAUSEA, MRX1; Start 10/27/17 at 07:00; Stop 10/27/17 at 15:22; Status DC Vancomycin HCl 250 ml @ 250 mls/hr 1X PREOP PRN IV PRIOR TO PROCEDURE Last administered on 10/27/17at 09:05; Start 10/27/17 at 06:00; Stop 10/27/17 at 18:00 ; Status DC Bacitracin 93063 unit/Sodium Chloride 1,000 ml @ 1,000 mls/hr 1X ONCE IRR Last administered on 10/27/17at 09:51; Start 10/27/17 at 06:00; Stop 10/27/17 at 06:59; Status DC Bupivacaine HCl/ Epinephrine Bitart (Sensorcain-Mpf Epi 0.5%-1:[id number]) 30 ml 1X ONCE INJ Last administered on 10/27/17at 09:51; Start 10/27/17 at 06:30; Stop 10/27/17 at 06:31; Status DC Gelatin (Gelfoam Size 100) 1 each STK-MED ONCE .ROUTE Last administered on 12/04at 09:51; Start 10/27/17 at 06:28; Stop 10/27/17 at 07:29; Status DC Ketorolac Tromethamine (Toradol For Or Only) 60 mg STK-MED ONCE .ROUTE Last administered on 10/27/17at 09:51; Start 10/27/17 at 06:28; Stop 10/27/17 at 07:29 ; Status DC Thrombin 20,000 unit STK-MED ONCE TP Last administered on 10/27/17at 09:51; Start 10/27/17 at 06:28; Stop 10/27/17 at 07:29; Status DC Rocuronium [place] (Zemuron) 50 mg STK-MED ONCE .ROUTE ; Start 10/27/17 at 08:10 ; Stop 10/27/17 at 08:11; Status DC Ephedrine Sulfate (ePHEDrine PF IN SALINE SYRINGE) 50 mg STK-MED ONCE IV ; Start 10/27/17 at 08:11; Stop 10/27/17 at 08:12; Status DC Fentanyl Citrate (Fentanyl 2ml Vial) 100 mcg STK-MED ONCE .ROUTE ; Start at 08:12; Stop 10/27/17 at 08:13; Status DC Remifentanil HCl (Ultiva) 2 mg STK-MED ONCE IV ; Start 10/27/17 at 08:13; Stop 10/27/17 at 08:14; Status DC Succinylcholine Chloride (Anectine) 200 mg STK-MED ONCE .ROUTE ; Start 10/27/17 at 08:14; Stop 10/27/17 at 08:15; Status DC Glycopyrrolate (Robinul) 1 mg STK-MED ONCE .ROUTE ; Start 10/27/17 at 09:26; Stop 10/27/17 at 09:27; Status DC Dexamethasone Sodium Phosphate (Decadron) 20 mg STK-MED ONCE .ROUTE ; Start 12/04 at 09:29; Stop 10/27/17 at 09:30; Status DC Ondansetron HCl (Zofran) 4 mg STK-MED ONCE .ROUTE ; Start 10/27/17 at 09:29; Stop 10/27/17 at 09:30; Status DC Propofol 20 ml @ As Directed STK-MED ONCE IV ; Start 10/27/17 at 09:29; Stop 12/04 at 09:30; Status DC Lidocaine HCl (Lidocaine Pf 2% Vial) 5 ml STK-MED ONCE .ROUTE ; Start 10/27/17 at 09:29; Stop 10/27/17 at 09:30; Status DC Neostigmine Methylsulfate (Neostigmine Methylsulfate) 5 mg STK-MED ONCE .ROUTE ; Start 10/27/17 at 09:36; Stop 10/27/17 at 09:37; Status DC Acetaminophen (Tylenol) 650 mg PRN Q6HRS PRN PO MILD PAIN / TEMP Last administered on 10/28/17at 02:50; Start 10/27/17 at 13:30 Al Hydroxide/Mg Hydroxide (Mylanta Plus Xs) 30 ml PRN Q3HRS PRN PO HEARTBURN / GAS; Start 10/27/17 at 13:30 Calcium Carbonate/ Glycine (Tums) 500 mg PRN Q3HRS PRN PO INDIGESTION; Start at 13:30 Diphenhydramine HCl (Benadryl) 25 mg PRN Q6HRS PRN PO ITCHING; Start 10/27/17 at 13:30 Diphenhydramine HCl (Benadryl) 25 mg PRN Q6HRS PRN IV ITCHING; Start 10/27/17 at 13:30 Sodium Chloride (Normal Saline Flush) 3 ml QSHIFT PRN IV AFTER MEDS AND BLOOD DRAWS; Start 10/27/17 at 13:30 Potassium Chloride/Sodium Chloride 1,000 ml @ 75 mls/hr [id number] IV Last administered on 10/27/17at 19:38; Start 10/27/17 at 13:22; Stop 10/29/17 at 07:16 ; Status DC Docusate Sodium (Colace) 100 mg BID PO Last administered on 10/31/17at 08:18; Start 10/27/17 at 21:00 Magnesium Hydroxide (Milk Of Magnesia) 2,400 mg PRN Q12HR PRN PO CONSTIPATION Last administered on 10/31/17 08:16; Start 10/27/17 at 13:30 Dextrose (Dextrose 50%-Water Syringe) 12.5 gm PRN Q15MIN PRN IV SEE COMMENTS; Start 10/27/17 at 13:30; Stop 10/29/17 at 12:45; Status DC Fentanyl Citrate (Fentanyl 2ml Vial) 50 mcg PRN Q2HR PRN IV SEVERE PAIN; Start 10/27/17 at 13:30 Cetirizine HCl (ZyrTEC) 10 mg DAILY PO Last administered on 10/31/17 08:20; Start 10/27/17 at 14:00 Dicyclomine HCl (Bentyl) 10 mg TID PO Last administered on 10/31/17 08:19; Start 10/27/17 at 14:00 Ergocalciferol (Vitamin D2) 50,000 unit We PO Last administered on 10/29/17at 11 :03; Start 10/29/17 at 09:00 Furosemide (Lasix) 40 mg BID92 PO Last administered on 10/31/17 08:20; Start 10/27/17 at 14:00 Lactulose (Lactulose) 10 gm PRN TID PRN PO CONSTIPATION; Start 10/27/17 at 13: 30 Losartan Potassium (Cozaar) 25 mg DAILY PO ; Start 10/27/17 at 14:00 Metoprolol Succinate (Toprol Xl) 25 mg DAILY PO ; Start 10/27/17 at 14:00 Oxycodone/ Acetaminophen (Percocet 10/325) 1 tab PRN TID PRN PO SEVERE PAIN Last administered on 10/31/17 08:19; Start 10/27/17 at 13:30 Pantoprazole Sodium (Protonix) 40 mg DAILY07 PO Last administered on 10/31/17at 06:37; Start 10/27/17 at 16:30 Trazodone HCl (Desyrel) 50 mg DAILYWSUP PO Last administered on 10/30/17 17:04 ; Start 10/27/17 at 17:00 Fluticasone Propionate (Flonase) 1 spray DAILY NS Last administered on 08:17; Start 10/28/17 at 09:00 Gabapentin (Neurontin) 600 mg TID PO Last administered on 10/31/17 08:20; Start 10/27/17 at 14:00 Hydrochlorothiazide (Hydrodiuril) 25 mg Th PO Last administered on 10/30/17 08 :06; Start 10/30/17 at 09:00 Insulin Glargine (Lantus) 80 units QHS SQ Last administered on 10/30/17 21:28 ; Start 10/27/17 at 21:00 Insulin Human Lispro (HumaLOG) 38 units TIDWMEALS SQ Last administered on 08:25; Start 10/27/17 at 17:00 Non-Formulary Medication (Liraglutide (Victoza 3-Calvin)) 1.8 mg DAILY SQ ; Start 10/28/17 at 09:00; Stop 10/28/17 at 09:00; Status DC Magnesium Oxide (Magnesium Oxide) 400 mg QHS PO Last administered on 10/30/17 21:08; Start 10/28/17 at 21:00 Meclizine HCl (Antivert) 25 mg TID PO Last administered on 10/31/17 08:19; Start 10/27/17 at 14:00 Oxycodone HCl (OxyCONTIN) 30 mg Q12HR PO Last administered on 10/31/17 08:21; Start 10/27/17 at 21:00 Potassium Chloride (Klor-Con) 20 meq TIDAFTMEAL PO Last administered on 08:18; Start 10/27/17 at 14:00 Ropinirole HCl (Requip) 0.5 mg QHS PO Last administered on 10/30/17 21:07; Start 10/27/17 at 21:00 Atorvastatin Calcium (Lipitor) 80 mg QHS PO Last administered on 10/30/17 21: 08; Start 10/27/17 at 21:00 Tizanidine HCl (Zanaflex) 4 mg PRN TID PRN PO MUSCLE SPASMS Last administered on 10/27/17 19:20; Start 10/27/17 at 14:00 Methylprednisolone (Medrol) 8 mg BID@1300,2100 PO Last administered on 21:11; Start 10/29/17 at 13:00; Stop 10/29/17 at 21:01; Status DC Methylprednisolone (Medrol) 4 mg BID@1600,1900 PO Last administered on at 18:22; Start 10/29/17 at 16:00; Stop 10/29/17 at 19:01; Status DC Methylprednisolone (Medrol) 4 mg TIDPC PO Last administered on 10/30/17at 17:04 ; Start 10/30/17 at 08:30; Stop 10/30/17 at 17:31; Status DC Methylprednisolone (Medrol) 8 mg QHS PO Last administered on 10/30/17at 21:08; Start 10/30/17 at 21:00; Stop 10/30/17 at 21:01; Status DC Methylprednisolone (Medrol) 4 mg QIDAFTMEAL PO Last administered on 10/31/17at 08:19; Start 10/31/17 at 09:00; Stop 10/31/17 at 21:01 Methylprednisolone (Medrol) 4 mg TID PO ; Start 11/01/17 at 09:00; Stop at 21:01 Methylprednisolone (Medrol) 4 mg BID PO ; Start 11/02/17 at 09:00; Stop at 21:01 Methylprednisolone (Medrol) 4 mg DAILY PO ; Start 11/03/17 at 09:00; Stop at 09:01 Insulin Human Lispro (HumaLOG) 0-5 UNITS TIDWMEALS SQ Last administered on 10/31at 08:26; Start 10/29/17 at 17:00 Dextrose (Dextrose 50%-Water Syringe) 12.5 gm PRN Q15MIN PRN IV SEE COMMENTS; Start 10/29/17 at 12:45 Bisacodyl (Dulcolax Tab) 10 mg DAILY PO Last administered on 10/31/17at 08:21; Start 10/29/17 at 18:00 Magnesium Hydroxide (Milk Of Magnesia) 2,400 mg 1X ONCE PO Last administered on 10/29/17at 18:19; Start 10/29/17 at 17:15; Stop 10/29/17 at 17:22; Status DC Senna/Docusate Sodium (Senna Plus) 1 tab BID PO Last administered on 10/31/17at 08:19; Start 10/29/17 at 21:00 Magnesium Citrate (Citroma) 296 ml PRN 1X PRN PO CONSTIPATION; Start 10/30/17 at 10:00 Active Scripts Active Reported Vitamin D2 (Ergocalciferol (Vitamin D2)) 50,000 Unit Capsule 50,000 Unit PO WEEKLY Potassium Chloride 20 Meq Tablet.er 20 Meq PO TID Hydrochlorothiazide Tablet (Hydrochlorothiazide) 50 Mg Tablet 25 Mg PO WEEKLY Zyrtec (Cetirizine Hcl) 10 Mg Tablet 10 Mg PO Toprol Xl (Metoprolol Succinate) 25 Mg Tab.er.24h 25 Mg PO DAILY Lactulose 20 Gm/30 Ml Solution 10 Gm PO PRN TID PRN Lidocaine 1 Each Adh..patch 1 Each TP Tizanidine Hcl 4 Mg Tablet 4 Mg PO TID PRN Losartan Potassium 25 Mg Tablet 25 Mg PO DAILY Dicyclomine Hcl 10 Mg Capsule 10 Mg PO TID Victoza 3-Calvin (Liraglutide) 0.6 Mg/0.1 Ml Pen.injctr 1.8 Mg SQ DAILY Protonix (Pantoprazole Sodium) 40 Mg Tablet.dr 40 Mg PO DAILY Flonase Allergy Relief (Fluticasone Propionate) 9.9 Ml [place].susp 1 Sprays NS DAILY Percocet 10-325 Mg Tablet (Oxycodone/Acetaminophen) 1 Each Tablet 1 Each PO PRN TID PRN Gabapentin 300 Mg Capsule 600 Mg PO TID Requip (Ropinirole Hcl) 0.5 Mg Tablet 0.5 Mg PO HS Levemir (Insulin Detemir) 100 Unit/1 Ml Vial 80 Unit SQ HS Furosemide 40 Mg Tablet 40 Mg PO BID Magnesium Oxide 400 Mg Tablet 400 Mg PO HS Meclizine Hcl 25 Mg Tab.chew 25 Mg PO TID Trazodone Hcl 50 Mg Tablet 50 Mg PO DAILYWSUP Humalog (Insulin Lispro) 100 Unit/1 Ml Cartridge 38 Unit SQ TIDAC Crestor (Rosuvastatin Calcium) 20 Mg Tablet 20 Mg PO HS Oxycontin (Oxycodone HCl) 80 Mg Tab.er.12h 30 Mg PO BID Vitals/I & O Vital Sign - Last 24 Hours 10/30/17 10/30/17 10/30/17 10/30/17 11:13 11:37 12:30 15:16 Temp 99.7 98.9 99.7 98.9 Pulse 87 73 Resp 20 20 20 B/P (MAP) 124/81 (95) 113/67 (82) Pulse Ox 94 O2 Delivery Room Air Room Air Room Air 10/30/17 10/30/17 10/30/17 10/30/17 17:52 18:11 20:00 21:10 Temp 98.6 98.6 Pulse 66 Resp 20 18 3 B/P (MAP) 128/58 (81) Pulse Ox 94 O2 Delivery Room Air Room Air Room Air O2 Flow Rate 2.0 10/31/17 10/31/17 10/31/17 10/31/17 01:08 06:37 08:19 08:21 Temp 98.3 98.3 Pulse 61 Resp 18 20 16 20 B/P (MAP) 126/63 (84) Pulse Ox 94 92 O2 Delivery Room Air Room Air Intake and Output 10/30/17 10/30/17 10/31/17 15:00 23:00 07:00 Intake Total 300 ml 740 ml 0 ml Output Total 800 ml 700 ml 900 ml Balance -500 ml 40 ml -900 ml BARBARA JOHN MD Oct 31, 2017 09:06
--- NOTE | 2017-10-31 12:37 | DISCH ---
DISCHARGE DISCHARGE INFORMATION: CONDITION ON DISCHARGE: Stable CODE STATUS: Code Status: Full GROUP HOME: SNF STAY <30 DAYS: Yes POST DISCHARGE ORDERS: ACTIVITY ORDERS: No restrictions, Walk in house WEIGHT BEARING STATUS: No restrictions, Full weight bearing, As tolerated BATHING ORDERS: Shower-keep dressing dry, No Tub Bath until see WOUND/INCISION CARE: Ice to area for comfort, Keep wound/cast CDI, Change dressing OTHER WOUND INSTRUCTIONS: daily dressing changes for 1 week cleanse with chlor prep then telfa CHECKS AFTER DISCHARGE: CHECKS AFTER DISCHARGE: Check blood sugar, ac/hs COMMENTS: snu anticipate LOS < 30 days FOLLOW-UP: PHYSICIAN FOLLOW-UP: please notify Dr. Vera upon admission for medical magament (diabetes) 287 ADDITIONAL FOLLOW-UP: call [phone] for a [address] Darby TREATMENT/EQUIPMENT ORDERS: ADAPTIVE EQUIPMENT NEEDED: None Physical Therapy For: Evalulation/Treatment Occupational Therapy For: Evaluation/Treatment DISCHARGE MEDICATIONS: Home Meds Active Scripts Docusate Sodium (COLACE) 100 Mg Capsule, 100 MG PO BID, #60 CAP Prov:SERGIO DARBY MD 10/27/17 Reported Medications Ergocalciferol (Vitamin D2) (VITAMIN D2) 50,000 Unit Capsule, 35483 UNIT PO WEEKLY, CAP 10/13/17 Potassium Chloride (POTASSIUM CHLORIDE) 20 Meq Tablet.er, 20 MEQ PO TID for supplement, TAB.SR 10/13/17 Hydrochlorothiazide (HYDROCHLOROTHIAZIDE TABLET) 50 Mg Tablet, 25 MG PO WEEKLY for DIURETIC, TAB 0 Refills 10/13/17 Cetirizine Hcl (ZYRTEC) 10 Mg Tablet, 10 MG PO for allergy, TAB 10/13/17 Metoprolol Succinate (TOPROL XL) 25 Mg Tab.er.24h, 25 MG PO DAILY for FOR HYPERTENSION, #30 TAB 0 Refills 10/13/17 Lactulose (LACTULOSE) 20 Gm/30 Ml Solution, 10 GM PO PRN TID PRN for SEE COMMENTS, MISC 10/13/17 Lidocaine (Lidocaine) 1 Each Adh..patch, 1 EACH TP, PATCH 10/13/17 Tizanidine Hcl (TIZANIDINE HCL) 4 Mg Tablet, 4 MG PO TID PRN for MUSCLE SPASMS, TAB 10/13/17 Losartan Potassium (LOSARTAN POTASSIUM) 25 Mg Tablet, 25 MG PO DAILY for blood pressure, TAB 10/13/17 Dicyclomine Hcl (DICYCLOMINE HCL) 10 Mg Capsule, 10 MG PO TID for stomach, CAP 10/13/17 Liraglutide (VICTOZA 3-YANNA) 0.6 Mg/0.1 Ml Pen.injctr, 1.8 MG SQ DAILY for diabetes, #9 ML 3 Refills 08/05/16 Pantoprazole Sodium (PROTONIX) 40 Mg Tablet.dr, 40 MG PO DAILY for stomach, TAB 08/05/16 Fluticasone Propionate (Flonase Allergy Relief) 9.9 Ml [place].susp, 1 SPRAYS NS DAILY for allergy, BOTTLE 08/05/16 Oxycodone/Apap 10-325 (PERCOCET 10-325 MG TABLET) 1 Each Tablet, 1 EACH PO PRN TID PRN for PAIN 05/06/13 Gabapentin (GABAPENTIN) 300 Mg Capsule, 600 MG PO TID for nerve pain 05/06/13 Ropinirole Hcl (REQUIP) 0.5 Mg Tablet, 0.5 MG PO HS for restless leg 05/06/13 Insulin Detemir (LEVEMIR) 100 Unit/1 Ml Vial, 80 UNIT SQ HS for diabetes, VIAL 05/06/13 Furosemide (FUROSEMIDE) 40 Mg Tablet, 40 MG PO BID for duiretic 05/06/13 Magnesium Oxide (MAGNESIUM OXIDE) 400 Mg Tablet, 400 MG PO HS for supplement 05/06/13 Meclizine Hcl (MECLIZINE HCL) 25 Mg Tab.chew, 25 MG PO TID for dizziness, TAB.CHEW 05/06/13 Trazodone Hcl (TRAZODONE HCL) 50 Mg Tablet, 50 MG PO DAILYWSUP for depression 05/06/13 Insulin Lispro (HUMALOG) 100 Unit/1 Ml Cartridge, 38 UNIT SQ TIDAC for diabetes 05/06/13 Rosuvastatin Calcium (CRESTOR) 20 Mg Tablet, 20 MG PO HS for cholesterol 05/06/13 Oxycodone Hcl (OXYCONTIN) 80 Mg Tab.er.12h, 30 MG PO BID for pain 05/06/13 SERGIO DARBY MD Oct 31, 2017 12:37
[2017-10-31] MEDS: METOPROLOL SUCC 24HR ER 25 MG TAB.ER.24H. PO SCH (13:25)
[2017-10-31 14:32] VITALS: BP 135/65
[2017-11-01] MEDS ORDERED: methylPREDNISolone 4 MG TABLET. PO SCH (09:00)
[2017-11-02] MEDS ORDERED: methylPREDNISolone 4 MG TABLET. PO SCH (09:00)
[2017-11-03] MEDS ORDERED: methylPREDNISolone 4 MG TABLET. PO SCH (09:00)
== END 2017-10-31 14:15 ==
LOC: SURG 07:04 → 4 SOUTHEST 13:12
PROVIDERS: ADMIT Neurological Surgery; ATTEND Neurological Surgery
DX: M48.061 Spinal stenosis, lumbar region without neurogenic claudication (principal); M54.16 Radiculopathy, lumbar region; E11.42 Type 2 diabetes mellitus with diabetic polyneuropathy; E66.9 Obesity, unspecified; I10 Essential (primary) hypertension; M06.9 Rheumatoid arthritis, unspecified; M10.9 Gout, unspecified; Z79.899 Other long term (current) drug therapy; Z88.0 Allergy status to penicillin; K59.00 Constipation, unspecified
CPT/HCPCS: 63030; 76000; 82962; 88304; 88311; 94660; 96372; 97110; 97116; 97162; 97166; 97530; 97535; A7015; G0378; G0379; G8978; G8979; J0330; J1100; J1815; J1885; J2001; J2405; J2704; J2710; J3010; J3370; J3490; J7030; J7509; J8597

== ENCOUNTER → 2018-01-20 | Outpatient (CLI) | payer OTHER ==
[~2018-01-20] MED LIST changes: -BACITRACIN 50,000 UNIT in IV NORMAL SALINE 1000ML BAG 1,000 ML IRR ONE; -BUPIVAC MPF-EPI 0.5%-1:200000 30 ML VIAL. INJ ONE; -GABA-586 PO; +GABA300C18 PO; -GELATIN SPONGE SIZE 100. ONE; -HYDROmorphone 2 MG/ML VIAL IV PRN; -IV RINGERS,LACTATED 1000ML 1,000 ML IV SCH; -KETOROLAC 60 MG/2 ML INJ FOR OR. ONE; -LIDOCAINE 1% PF 2 ML VIAL. ID PRN; -LOSA25TA5 PO; +LOSA25TA54 PO; +METR-84 PO; -METR500T8 PO; -MORPHINE SULFATE 2 MG/ML VIAL. IV PRN; -ONDANSETRON PF 4 MG/2 ML VIAL. IV PRN; -OXYC-328 PO; +OXYC1TAB22 PO; -PROCHLORPERAZINE 10 MG/2 ML VIAL. IV PRN; -THROMBIN TOPICAL 20,000 UNIT SPRAY.SYRN KIT TP ONE
--- NOTE | 2018-01-20 17:28 | RAD ---
6 view lumbar spine series including flexion and extension lateral views Clinical indications: Back pain for 3 weeks. FINDINGS: The transverse processes appear intact. No compression fracture or discitis or osteolytic process is evident. Grade 1 anterolisthesis of L4-5 is seen which measures 6 mm in flexion and extension. There is moderate degenerative disc space narrowing and endplate spurring at L3-4 and L4-5. IMPRESSION: Degenerative lumbar spondylosis at L3-4 and L4-5. Grade 1 anterolisthesis of L4-5. Electronically signed by: Omer Patterson MD (01/20/2018 5:24 PM) [facility]
== END | disposition home or self-care (01) ==
LOC: RAD 14:20
PROVIDERS: ATTEND Neurological Surgery
DX: M47.896 Other spondylosis, lumbar region (principal); M43.16 Spondylolisthesis, lumbar region; M48.061 Spinal stenosis, lumbar region without neurogenic claudication
CPT/HCPCS: 72100; 72110

== ENCOUNTER → 2018-09-10 | Outpatient (CLI) | payer OTHER ==
[~2018-09-10] MED LIST changes: +LIDO700A21 TP; -LIDO700A39 TP; +METR-34 PO; -METR-84 PO; -PANT40TA3 PO; +PANT40TA77 PO; +TRAZ-118 PO; -TRAZ-85 PO
--- NOTE | 2018-09-11 09:24 | RAD ---
Bilateral lower extremity arterial ultrasound History: Peripheral vascular disease Findings: Multiple grayscale, color, and duplex spectral analysis sonographic images were acquired of the lower extremity arteries bilaterally. There are no previous similar exams. Exam is technically limited due to patient body habitus. Triphasic waveforms noted involving the right and left common femoral artery. Biphasic waveform of the profunda femoris artery bilaterally. Triphasic waveforms involving the superficial femoral artery and distally throughout the lower extremities. Diffuse atheromatous involvement involving arterial vasculature bilaterally seen. Flow is not identified involving the right peroneal artery. Flow was not identified involving the distal left posterior tibial artery. Velocities in cm/sec: RIGHT Common femoral artery 179 Profunda femoris artery 104 Proximal SFA 146 Mid SFA 102 Distal SFA 104 Popliteal artery 65 Anterior tibial artery 59 Dorsalis pedis artery 77 Posterior tibial artery 83 Peroneal artery not detected LEFT: Common femoral artery 128 Profunda femoris artery 71 Proximal SFA 125 Mid SFA 79 Distal SFA 113 Popliteal artery 31 Anterior tibial artery 93 Dorsalis pedis artery 87 Posterior tibial artery 57 Peroneal artery 57 Impression: No significant focal stenosis is identified at sites where flow is visualized. Spectral waveforms are within normal limits. Flow was not detected involving the right peroneal artery and distal left posterior tibial artery and is of indeterminate significance. Exam is technically limited due to body habitus. Possibly of occlusion is not necessarily excluded but flow is identified to be normal at other sites throughout the exam. Electronically signed by: Nikolay Bianchi MD (09/11/2018 9:21 AM) [id number]
== END | disposition home or self-care (01) ==
LOC: US 15:04
PROVIDERS: ATTEND Internal Medicine
DX: I70.203 Unspecified atherosclerosis of native arteries of extremities, bilateral legs (principal)
CPT/HCPCS: 93925

== ENCOUNTER → 2019-11-16 | Outpatient (CLI) | payer OTHER, MEDICAID ==
[~2019-11-16] MED LIST changes: -CETI10TA22 PO; +CETI10TA74 PO; +DOXY-96 PO; -DOXY100T9 PO; -MAGN400T3 PO; +MAGN400T5 PO; -PARI1CAP PO; +PARI1CAP17 PO; +POTA20TA4 PO; -POTA20TA82 PO; -TIZA4TAB PO; +TIZA4TAB2 PO
--- NOTE | 2019-11-16 14:40 | RAD ---
INDICATION: Reason: PAIN SWELLING / Spl. Instructions: / History: COMPARISON: None. TECHNIQUE: Grayscale, color and doppler ultrasound images were obtained of the right lower extremity venous vasculature. RIGHT: No thrombus identified in the common femoral vein, femoral vein, popliteal vein or visualized calf veins. IMPRESSION: * No thrombus identified in deep venous system of right lower extremity. Electronically signed by: Jeronimo Bradley MD (11/16/2019 2:37 PM) [id number]
== END | disposition home or self-care (01) ==
LOC: US 13:15
PROVIDERS: ATTEND Internal Medicine
DX: M79.661 Pain in right lower leg (principal); M79.89 Other specified soft tissue disorders
CPT/HCPCS: 93971

== ENCOUNTER 2021-05-28 09:11 | Inpatient (IN) | payer OTHER, MEDICAID ==
[~2021-05-28] VITALS: Ht 175.3 cm; Wt 113.8 kg
[2021-05-28] VITALS (12 sets, daily range): BP systolic 91–157; BP diastolic 56–76
[~2021-05-28 09:11] MED LIST changes: +CLINDAMYCIN 900MG PREMIX 50 ML IV PRN; +DEXAMETHASONE SOD PHOS 4 MG/ML VIAL ONE; -DOCU-150 PO; +DOCU-158 PO; +DULO20CA PO; +FAMO-63 PO; +GUAI600T47 PO; -HYDR50TA6 PO; +HYDR50TA9 PO; +INSU100V37 SQ; +INSU100V6 SQ; +IV RINGERS,LACTATED 1000ML 1,000 ML IV SCH; +LIDOCAINE 2% PF 5 ML VIAL. ONE; +MAGN400T48 PO; -MAGN400T5 PO; +ONDANSETRON PF 4 MG/2 ML VIAL. ONE; +PHENYLEPHRINE 10 MG/ML VIAL. ONE; +PHENYLEPHRINE in 0.9% NACL PF 1 MG/10 ML SYRINGE. IV ONE; +PROCHLORPERAZINE 10 MG/2 ML VIAL. IVP PRN; +PROPOFOL 10 MG/ML (20ML) VIAL. IV ONE; +TIZA-75 PO; -TIZA4TAB2 PO; +VITA1TAB19 PO; +fentaNYL PF VIAL 100 MCG/2 ML VIAL IVP PRN
[2021-05-28] MEDS ORDERED: fentaNYL PF VIAL 100 MCG/2 ML VIAL ONE ×5 (09:12→13:06)
[2021-05-28] MEDS ORDERED: ROCURONIUM 50 MG/5 ML VIAL. ONE ×2 (09:12→10:40)
[2021-05-28] MEDS ORDERED: INSULIN LISPRO 100 UNIT/ML 3ML VIAL for OP,RR ONLY. SQ PRN (09:15)
[2021-05-28] MEDS ORDERED: EPINEPHrine 1 MG/ML VIAL ONE (10:08)
[2021-05-28] MEDS ORDERED: BUPIVACAINE MPF 0.5% 30 ML VIAL. ONE (10:08)
[2021-05-28] MEDS ORDERED: LIDOCAINE 2% PF 5 ML VIAL. ONE (10:08)
[2021-05-28] MEDS ORDERED: DEXAMETHASONE SOD PHOS 4 MG/ML VIAL ONE ×2 (10:08→10:40)
[2021-05-28] MEDS ORDERED: PROPOFOL 10 MG/ML (20ML) VIAL. IV ONE (10:40)
[2021-05-28] MEDS ORDERED: ONDANSETRON PF 4 MG/2 ML VIAL. ONE ×2 (10:40→13:06)
[2021-05-28] MEDS ORDERED: MIDAZOLAM HCL/PF 2 MG/2 ML VIAL. ONE (10:52)
[2021-05-28] MEDS ORDERED: fentaNYL PF VIAL 100 MCG/2 ML VIAL IVP ONE (11:00)
[2021-05-28] MEDS ORDERED: MIDAZOLAM HCL/PF 2 MG/2 ML VIAL. IV ONE (11:00)
[2021-05-28] MEDS ORDERED: EPINEPHrine VIAL 30 MG/30 ML VIAL ONE (11:01)
[2021-05-28] MEDS ORDERED: BUPIVACAINE-EPI 0.5% 30 ML VIAL KIT. ONE (11:39)
[2021-05-28] MEDS ORDERED: GLYCOPYRROLATE 1 MG/5 ML VIAL. ONE (12:07)
[2021-05-28] MEDS ORDERED: NEOSTIGMINE METHYLSULFATE 5 MG/5 ML SYRINGE. ONE (12:07)
[2021-05-28] MEDS ORDERED: KETOROLAC 30 MG/ML VIAL. ONE (12:09)
--- NOTE | 2021-05-28 12:38 | PDOC4 ---
OPERATIVE NOTE Date: Date: May 28, 2021 Pre-Op Diagnosis: Infringement with rotator cuff tear left shoulder Post-Op Diagnosis: Efrain rotator cuff tear partial bicep tear left shoulder Procedure Performed: Left shoulder arthroscopy of subacromial decompression bicep Danyell license many open rotator cuff repair Surgeon: Elicia Anesthesia Type: General Blood Loss: 20 mL Specimans Obtained: None Findings: See dictation Complications: None KARINA STEPHEN Jr. DO May 28, 2021 12:38
[2021-05-28] MEDS ORDERED: OXYC1TAB19 PO (12:41)
--- NOTE | 2021-05-28 12:45 | DISCH ---
DISCHARGE INSTRUCTIONS Condition on Discharge Condition on Discharge: Stable Activity After Discharge Activity Instructions for Disc: No restrictions, Avoid exertion, Walk in house Bathing Instructions: Shower-keep dressing dry, No Tub Bath until see Lifting Instructions after Dis: No heavy lifting, No pulling or pushing, Do not lift >10 pounds Exercise Instruction after Dis: Exercise per therapy Driving Instructions after Dis: No driving for 2 weeks Weight Bearing Status after Di: No restrictions, Full weight bearing, As tolerated Diet after Discharge Diet after Discharge: Diabetic No Calorie Level Additional Diet Restrictions: resume home diet Diet Texture: Regular Liquid Texture: Thin Liquid Swallowing Supervision: None needed Wound Incision Care Wound/Incision Care: Ice to area for comfort, Keep wound/cast CDI, Change dressing Other wound/incision instructi: May change dressings postoperative day number three Wound Care Equipment: Dressings Checks after Discharge Checks after discharge: Check blood sugar, ac/hs Contacting the DRGlenda after DC Call your doctor for: Concerns you may have Follow-Up Follow up with: 10 to 14 days Treatment/Equipment after DC Adaptive Equipment Issued: None KARINA STEPHEN Jr. DO May 28, 2021 12:45
[2021-05-28] MEDS ORDERED: ONDANSETRON PF 4 MG/2 ML VIAL. IVP ONE (13:15)
[2021-05-28] MEDS: fentaNYL PF VIAL 100 MCG/2 ML VIAL IVP PRN ×4 (13:22→19:42)
[2021-05-28] MEDS ORDERED: HYDROmorphone 2 MG/ML INJ. ONE (13:39)
[2021-05-28] MEDS: HYDROmorphone 2 MG/ML INJ. IVP PRN ×4 (13:44→14:30)
--- NOTE | 2021-05-28 13:49 | OP ---
DATE OF SURGERY: 05/28/2021 PREOPERATIVE DIAGNOSIS: Impingement, acromioclavicular arthrosis, rotator cuff tear, left shoulder. POSTOPERATIVE DIAGNOSIS: Impingement, acromioclavicular arthrosis, rotator cuff tear, left shoulder with addition of partial biceps tear. PROCEDURE: Left shoulder arthroscopy with biceps tenolysis, subacromial decompression, distal clavicle resection, mini open rotator cuff repair. SURGEON: Epifanio Rubi Jr, DO ANESTHESIA: General. COMPLICATIONS: None. ESTIMATED BLOOD LOSS: 20 mL. BRANCH OPERATIONS COORDINATOR: Hemant Bernal. DESCRIPTION OF PROCEDURE: The patient was taken to the operative suite, given a general anesthetic, placed in a beach chair position. Left shoulder was then prepped and draped in a sterile fashion. A standard posterior portal was established. Glenohumeral joint was visualized. There were noted to be some degenerative changes on the glenoid, grade 2, that were stable. Same was noted on the humeral head. No areas of bone and no significant extensive damage to the chondral surface of either portions of the joint. No loose bodies were noted within the inferior pouch. There was noted to be a partial tear of the undersurface of the biceps tendon approximately 30-40% minimum. The remainder of the tendon did not look healthy; therefore, a biceps tenolysis was performed. Debridement of the undersurface of the rotator cuff revealed there to be areas of partial tear as well as a large area of full-thickness tear as well; therefore, scope was then taken into the subacromial region. There was noted to be significant amount of downsloping of the anterior acromion; therefore, a release of the CA ligament was performed as well as a subacromial decompression with the bur. That opened up the space very nicely and the bursectomy was completed along that area and it was again noted there was a tear of the rotator cuff. The remaining tissue, however, did look viable and healthy; therefore, scope was then removed. The lateral portal was incorporated into the incision through skin and subcutaneous tissues down to split the deltoid in line with the skin incision. This was retracted and the tear was identified, debrided and then a suture anchor was placed with 1 limb in the anterior, 1 limb in the posterior aspects of this tear and then a SwiveLock was used laterally to pull this back into position, was noted to be a very stable tear repair. This was then thoroughly irrigated. The deltoid split was reapproximated. Superficial tissue and skin were reapproximated. Sterile dressing was applied. The patient was then taken from the operative bed to the postoperative bed, taken to the PACU in stable condition. AFSHAN DR: Aaron TID: [id number]
[2021-05-28] MEDS ORDERED: MORPHINE SULFATE 2 MG/ML INJ. ONE (14:45)
[2021-05-28] MEDS ORDERED: ROPIVacaine 0.5% PF 20 ML VIAL. ONE (14:47)
[2021-05-28] MEDS: MORPHINE SULFATE 2 MG/ML INJ. IVP PRN ×2 (14:49→16:07)
[2021-05-28] MEDS ORDERED: INSULIN LISPRO 100 UNIT/ML 3ML VIAL for OP,RR ONLY. SQ ONE (15:15)
[2021-05-28] MEDS ORDERED: ACETAMINOPHEN 325 MG TABLET. PO PRN (16:45)
[2021-05-28] MEDS ORDERED: MAG HYDROX/ALUMINUM HYD/SIMETH 30 ML ORAL.SUSP PO PRN (16:45)
[2021-05-28] MEDS ORDERED: ZOLPIDEM 5 MG TABLET. PO PRN (16:45)
[2021-05-28] MEDS ORDERED: HYDROcodone/APAP 5/325MG 1 TAB TABLET PO PRN (16:45)
[2021-05-28] MEDS ORDERED: MAGNESIUM HYDROXIDE 2,400 MG/30 ML ORAL.SUSP. PO PRN (16:45)
[2021-05-28] MEDS ORDERED: oxyCODONE/APAP 5/325 1 TAB TABLET PO PRN ×2 (16:45)
[2021-05-28] MEDS ORDERED: CALCIUM CARBONATE 500 MG TAB.CHEW PO PRN (16:45)
[2021-05-28] MEDS ORDERED: hydrALAZINE 20 MG/ML VIAL. IVP PRN (16:45)
[2021-05-28] MEDS ORDERED: ONDANSETRON PF 4 MG/2 ML VIAL. IVP PRN (16:45)
--- NOTE | 2021-05-28 17:04 | PDOC1 ---
History and Physical Date of Admission Date of Admission DATE: 05/28/21 TIME: 16:46 Identification/Chief Complaint Chief Complaint Pain management Source Source: Chart review, Patient History of Present Illness History of Present Illness Patient is a 65-year-old female with past medical history hypertension, diabetes, CHF, who is s/p left shoulder arthroscopy with biceps tenolysis, subacromial decompression, distal clavicle resection, and mini open rotator cuff repair. We have been asked to admit patient for postop medical management. At the time of evaluation patient still very somnolent but arousable. Will admit for further medical management. Past Medical History Past Medical History HTN, diabetes, CHF Past Surgical History Past Surgical History Hysterectomy, tubal ligation Family History Family History DM2 Social History Smoke: No ALCOHOL: rare Drugs: None Current Medications Current Medications Current Medications Fentanyl Citrate (Fentanyl 2ml Vial) 25 mcg PRN Q5MIN PRN IVP MILD PAIN 1-3; Start 05/28/21 at 06:00; Stop 05/29/21 at 05:59 Fentanyl Citrate (Fentanyl 2ml Vial) 50 mcg PRN Q5MIN PRN IVP MODERATE PAIN 4-6 Last administered on 05/28/21at 13:27; Start 05/28/21 at 06:00; Stop 05/29/21 at 05:59 Morphine Sulfate (Morphine Sulfate) 1 mg PRN Q10MIN PRN IVP SEVERE PAIN 7-10 Last administered on 05/28/21at 16:07; Start 05/28/21 at 06:00; Stop 05/29/21 at 05:59 Ringer's Solution 1,000 ml @ 30 mls/hr Q24H IV Last administered on 05/28/21at 10:04; Start 05/28/21 at 06:00; Stop 05/28/21 at 17:59 Hydromorphone HCl (Dilaudid) 0.5 mg PRN Q10MIN PRN IVP SEVERE PAIN 7-10, 2nd CHOICE Last administered on 05/28/21at 14:30; Start 05/28/21 at 06:00; Stop 05/29/21 at 05:59 Prochlorperazine Edisylate (Compazine) 5 mg PACU PRN PRN IVP NAUSEA, MRX1; Start 05/28/21 at 06:00; Stop 05/29/21 at 05:59 Clindamycin Phosphate 50 ml @ 100 mls/hr 1X PREOP PRN IV PRIOR TO PROCEDURE Last administered on 05/28/21at 11:30; Start 05/28/21 at 06:00; Stop 05/28/21 at 18:00 Phenylephrine HCl (Toi-Synephrine Inj) 10 mg STK-MED ONCE .ROUTE ; Start 05/28/21 at 09:10; Stop 05/28/21 at 09:10; Status DC Propofol (Diprivan) 200 mg STK-MED ONCE IV ; Start 05/28/21 at 09:11; Stop 05/28/21 at 09:12; Status DC Lidocaine HCl (Lidocaine Pf 2% Vial) 5 ml STK-MED ONCE .ROUTE ; Start 05/28/21 at 09:11; Stop 05/28/21 at 09:12; Status DC Phenylephrine HCl (PHENYLEPHRINE in 0.9% NACL PF) 1 mg STK-MED ONCE IV ; Start 05/28/21 at 09:11; Stop 05/28/21 at 09:12; Status DC Ondansetron HCl (Zofran) 4 mg STK-MED ONCE .ROUTE ; Start 05/28/21 at 09:11; Stop 05/28/21 at 09:12; Status DC Dexamethasone Sodium Phosphate (Decadron) 4 mg STK-MED ONCE .ROUTE ; Start 05/28/21 at 09:11; Stop 05/28/21 at 09:12; Status DC Rocuronium [place] (Zemuron) 50 mg STK-MED ONCE .ROUTE ; Start 05/28/21 at 09:12; Stop 05/28/21 at 09:12; Status DC Fentanyl Citrate (Fentanyl 2ml Vial) 100 mcg STK-MED ONCE .ROUTE ; Start 05/28/21 at 09:12; Stop 05/28/21 at 09:13; Status DC Insulin Human Lispro (HumaLOG VIAL for OP,RR ONLY) 0-10 units PRN Q1HR PRN SQ PER PROTOCOL Last administered on 05/28/21at 15:13; Start 05/28/21 at 09:15; Stop 05/29/21 at 09:14 Fentanyl Citrate (Fentanyl 2ml Vial) 100 mcg STK-MED ONCE .ROUTE ; Start 05/28/21 at 09:56; Stop 05/28/21 at 09:56; Status DC Dexamethasone Sodium Phosphate (Decadron) 4 mg STK-MED ONCE .ROUTE ; Start 05/28/21 at 10:08; Stop 05/28/21 at 10:08; Status DC Bupivacaine HCl (Sensorcaine Mpf 0.5%) 30 ml STK-MED ONCE .ROUTE ; Start 05/28/21 at 10:08; Stop 05/28/21 at 10:08; Status DC Epinephrine HCl (Adrenalin) 1 mg STK-MED ONCE .ROUTE ; Start 05/28/21 at 10:08; Stop 05/28/21 at 10:08; Status DC Lidocaine HCl (Lidocaine Pf 2% Vial) 5 ml STK-MED ONCE .ROUTE ; Start 05/28/21 at 10:08; Stop 05/28/21 at 10:08; Status DC Propofol (Diprivan) 200 mg STK-MED ONCE IV ; Start 05/28/21 at 10:40; Stop 05/28/21 at 10:40; Status DC Dexamethasone Sodium Phosphate (Decadron) 4 mg STK-MED ONCE .ROUTE ; Start 05/28/21 at 10:40; Stop 05/28/21 at 10:40; Status DC Ondansetron HCl (Zofran) 4 mg STK-MED ONCE .ROUTE ; Start 05/28/21 at 10:40; Stop 05/28/21 at 10:40; Status DC Rocuronium [place] (Zemuron) 50 mg STK-MED ONCE .ROUTE ; Start 05/28/21 at 10:40; Stop 05/28/21 at 10:40; Status DC Fentanyl Citrate (Fentanyl 2ml Vial) 100 mcg STK-MED ONCE .ROUTE ; Start 05/28/21 at 10:40; Stop 05/28/21 at 10:40; Status DC Midazolam HCl (Versed) 2 mg STK-MED ONCE .ROUTE ; Start 05/28/21 at 10:52; Stop 05/28/21 at 10:52; Status DC Fentanyl Citrate (Fentanyl 2ml Vial) 100 mcg STK-MED ONCE .ROUTE ; Start 05/28/21 at 10:52; Stop 05/28/21 at 10:52; Status DC Fentanyl Citrate (Fentanyl 2ml Vial) 100 mcg 1X ONCE IVP Last administered on 05/28/21at 10:59; Start 05/28/21 at 11:00; Stop 05/28/21 at 11:01; Status DC Midazolam HCl (Versed) 2 mg 1X ONCE IV Last administered on 05/28/21at 10:59; Start 05/28/21 at 11:00; Stop 05/28/21 at 11:01; Status DC Epinephrine HCl (Adrenalin) 30 mg STK-MED ONCE .ROUTE Last administered on 05/28/21at 11:59; Start 05/28/21 at 11:01; Stop 05/28/21 at 11:01; Status DC Bupivacaine HCl/ Epinephrine Bitart (Sensorcain-Epi 0.5% Kit) 30 ml STK-MED ONCE .ROUTE Last administered on 05/28/21at 11:59; Start 05/28/21 at 11:39; Stop 05/28/21 at 11:39; Status DC Neostigmine [place] (Neostigmine Methylsulfate) 5 mg STK-MED ONCE .ROUTE ; Start 05/28/21 at 12:07; Stop 05/28/21 at 12:07; Status DC Glycopyrrolate (Robinul) 1 mg STK-MED ONCE .ROUTE ; Start 05/28/21 at 12:07; Stop 05/28/21 at 12:07; Status DC Ketorolac Tromethamine (Toradol 30mg Vial) 30 mg STK-MED ONCE .ROUTE ; Start 05/28/21 at 12:09; Stop 05/28/21 at 12:09; Status DC Fentanyl Citrate (Fentanyl 2ml Vial) 100 mcg STK-MED ONCE .ROUTE ; Start 05/28/21 at 13:06; Stop 05/28/21 at 13:06; Status DC Ondansetron HCl (Zofran) 4 mg STK-MED ONCE .ROUTE ; Start 05/28/21 at 13:06; Stop 05/28/21 at 13:06; Status DC Ondansetron HCl (Zofran) 4 mg 1X ONCE IVP Last administered on 05/28/21at 13:22; Start 05/28/21 at 13:15; Stop 05/28/21 at 13:20; Status DC Hydromorphone HCl (Dilaudid) 2 mg STK-MED ONCE .ROUTE ; Start 05/28/21 at 13:39; Stop 05/28/21 at 13:39; Status DC Morphine Sulfate (Morphine Sulfate) 2 mg STK-MED ONCE .ROUTE ; Start 05/28/21 at 14:45; Stop 05/28/21 at 14:45; Status DC Ropivacaine (Naropin 0.5%) 20 ml STK-MED ONCE .ROUTE ; Start 05/28/21 at 14:47; Stop 05/28/21 at 14:47; Status DC Ondansetron HCl (Zofran) 4 mg PRN Q6HRS PRN IVP NAUSEA/VOMITING; Start 05/28/21 at 16:45 Al Hydroxide/Mg Hydroxide (Mylanta Plus Xs) 30 ml PRN Q3HRS PRN PO HEARTBURN / GAS; Start 05/28/21 at 16:45 Calcium Carbonate/ Glycine (Tums) 500 mg PRN Q3HRS PRN PO UPSET STOMACH; Start 05/28/21 at 16:45 Zolpidem Tartrate (Ambien) 5 mg PRN QHS PRN PO INSOMNIA, MAY REPEAT IN 1HR; Start 05/28/21 at 16:45 Oxycodone HCl (Roxicodone) 5 mg PRN Q3HRS PRN PO BREAKTHROUGH PAIN; Start 05/28/21 at 16:45 Acetaminophen/ Hydrocodone Bitart (Lortab 5/325) 1 tab PRN Q4HRS PRN PO MILD PAIN 1-3; Start 05/28/21 at 16:45 Acetaminophen/ Hydrocodone Bitart (Lortab 5/325) 2 tab PRN Q4HRS PRN PO MODERATE PAIN, SEVERE PAIN; Start 05/28/21 at 16:45 Oxycodone/ Acetaminophen (Percocet 5/325) 1 tab PRN Q4HRS PRN PO MILD PAIN, 2ND CHOICE; Start 05/28/21 at 16:45 Oxycodone/ Acetaminophen (Percocet 5/325) 2 tab PRN Q4HRS PRN PO MODERATE PAIN, SEVERE PAIN; Start 05/28/21 at 16:45 Acetaminophen (Tylenol) 650 mg PRN Q6HRS PRN PO Headaches, Temp > 101.5F; Start 05/28/21 at 16:45 Magnesium Hydroxide (Milk Of Magnesia) 2,400 mg PRN Q12HR PRN PO CONSTIPATION; Start 05/28/21 at 16:45 Heparin Sodium (Porcine) (Heparin Sodium) 5,000 unit Q8HRS SQ ; Start 05/28/21 at 22:00 Active Scripts Active Percocet 7.5-325 Mg Tablet (Oxycodone/Acetaminophen) 1 Each Tablet 1 Tab PO QIDPRN PRN MDD 4 Tablet(s) 5 Days Reported Mucinex (Guaifenesin) 600 Mg Tablet.er 600 Mg PO PRN BID PRN Cymbalta (Duloxetine Hcl) 20 Mg Capsule.dr 20 Mg PO DAILY Pepcid (Famotidine) 20 Mg Tablet 20 Mg PO HS Tresiba (Insulin Degludec) 100 Unit/1 Ml Vial 50 Unit SQ BID Humalog (Insulin Lispro) 100 Unit/1 Ml Vial 25 Unit SQ DAILYWDIN B Complex (Vitamin B Complex) 1 Each Tablet 1 Each PO DAILY Vitamin D2 (Ergocalciferol (Vitamin D2)) 50,000 Unit Capsule 50,000 Unit PO WEEKLY Potassium Chloride (Potassium Chloride) 20 Meq Tablet.er 20 Meq PO TID Zyrtec (Cetirizine Hcl) 10 Mg Tablet 10 Mg PO Toprol Xl (Metoprolol Succinate) 25 Mg Tab.er.24h 25 Mg PO DAILY Lactulose 20 Gm/30 Ml Solution 10 Gm PO PRN TID PRN Dicyclomine Hcl 10 Mg Capsule 10 Mg PO TID Victoza 3-Calvin (Liraglutide) 0.6 Mg/0.1 Ml Pen.injctr 1.8 Mg SQ DAILYWLUN Protonix (Pantoprazole Sodium) 40 Mg Tablet.dr 40 Mg PO DAILY Flonase Allergy Relief (Fluticasone Propionate) 9.9 Ml [place].susp 1 Sprays NS DAILY Percocet 10-325 Mg Tablet (Oxycodone/Acetaminophen) 1 Each Tablet 1 Each PO PRN TID PRN Gabapentin (Gabapentin) 300 Mg Capsule 800 Mg PO TID Requip (Ropinirole Hcl) 0.5 Mg Tablet 0.5 Mg PO HS Furosemide 40 Mg Tablet 40 Mg PO BID Magnesium Oxide 400 Mg Tablet 400 Mg PO HS Meclizine Hcl 25 Mg Tab.chew 25 Mg PO TID Humalog (Insulin Lispro) 100 Unit/1 Ml Cartridge 45 Unit SQ BIDWBKFT/DIVINA Crestor (Rosuvastatin Calcium) 20 Mg Tablet 20 Mg PO HS Oxycontin (Oxycodone HCl) 80 Mg Tab.er.12h 20 Mg PO PRN Q12HR PRN Allergies Allergies: Coded Allergies: Penicillins (Verified Allergy, Intermediate, Itching, 05/28/21) burning Sulfa (Sulfonamide Antibiotics) (Verified Allergy, Intermediate, Itching/swelling, 05/28/21) swelling aspirin (Verified Adverse Reaction, Intermediate, Itching/High doses only, 05/28/21) High doses only lisinopril (Verified Adverse Reaction, Intermediate, Cough, 05/28/21) Coughing ROS Review of System GENERAL: No history of weight change, weakness or fevers. SKIN: No bruising, hair changes or rashes. EYES: No blurred, double or loss of vision. NOSE AND THROAT: No history of nosebleeds, hoarseness or sore throat. HEART: Denies chest pain, denies palpitations. LUNGS: Denies cough, hemoptysis, wheezing or shortness of breath. GASTROINTESTINAL: Denies nausea, vomiting, abdominal pain. GENITOURINARY: Denies dysuria, frequency, urgency, hematuria. NEUROLOGIC: Denies history of numbness, tingling, tremor or weakness. PSYCHIATRIC: Denies anxiety, denies depression. ENDOCRINE: No history of heat or cold intolerance, polyuria or polydipsia. EXTREMITIES: Left shoulder pain. Denies muscle weakness, pain on walking or stiffness. Physical Exam Physical Exam General: Alert, Oriented X2, Cooperative, No acute distress. Obese. HEENT: PERRLA, EOMI Lungs: Clear to auscultation, Normal air movement Heart: RRR, no murmurs Cardiovascular: S1, S2 Abdomen: Normal bowel sounds, Soft, No tenderness Extremities: No clubbing, No cyanosis Skin: No rashes, No significant lesion Neuro: Normal speech, Normal tone, Sensation intact Psych/Mental Status: Mental status NL, Mood NL Vitals Vitals Vital Signs Date Time Temp Pulse Resp B/P (MAP) Pulse Ox O2 Delivery O2 Flow Rate FiO2 05/28/21 14:58 88 14 148/71 100 Room Air 05/28/21 13:58 10.0 05/28/21 12:57 98.0 98.0 Labs Labs Laboratory Tests Test 05/28/21 09:18 05/28/21 10:04 05/28/21 13:03 05/28/21 15:08 POC SARS CoV-2 Antigen Negative (NEGATIVE) Glucose (Fingerstick) 149 mg/dL (70-99) 157 mg/dL (70-99) 225 mg/dL (70-99) Laboratory Tests Test 05/28/21 09:18 05/28/21 10:04 05/28/21 13:03 05/28/21 15:08 POC SARS CoV-2 Antigen Negative (NEGATIVE) Glucose (Fingerstick) 149 mg/dL (70-99) 157 mg/dL (70-99) 225 mg/dL (70-99) VTE Prophylaxis Ordered VTE Prophylaxis Devices: No VTE Pharmacological Prophylaxi: Yes Assessment/Plan Assessment/Plan S/P left shoulder arthroscopy with biceps tenolysis, subacromial decompression, and distal clavicle resection DM2 HTN CHF Plan: Will provide pain management Basal/prandial insulin PT/OT Resume home medications FEN - ADA diet PPX - Heparin FULL CODE Dispo - inpatient for above Justifications for Admission Other Justification HELADIO MARNIO MD May 28, 2021 17:04
[2021-05-28] MEDS ORDERED: DEXTROSE 50% 25 GM / 50ML DISP.SYRIN. IV PRN (17:15)
[2021-05-28] MEDS ORDERED: IV DEXTROSE 5% 250 ML BAG. IV PRN (17:15)
[2021-05-28 18:54] LABS: BASO % 0 % (0-3); EOS % 0 % (0-3); HEMATOCRIT 40.1 % (36.0-47.0); HEMOGLOBIN 13.2 g/dL (12.0-15.5); LYMPH % 11 % (24-48); MEAN CORPUSCULAR HEMOGLOBIN 32 pg (25-35); MEAN CORPUSCULAR HGB CONC 33 g/dL (31-37); MEAN CORPUSCULAR VOLUME 96 fL (79-100); MONO # 0.1 x10^3/uL (0.0-1.1); MONO % 1 % (0-9); NEUT # 7.3 x10^3/uL (1.8-7.7); NEUT % 87 % (31-73); PLATELET COUNT 182 x10^3/uL (140-400); RED BLOOD COUNT 4.17 x10^6/uL (3.50-5.40); RED CELL DISTRIBUTION WIDTH 15.8 % (11.5-14.5); WHITE BLOOD COUNT 8.5 x10^3/uL (4.0-11.0)
[2021-05-28 19:09] LABS: ALBUMIN 3.6 g/dL (3.4-5.0); ALBUMIN/GLOBULIN RATIO 0.8 (1.0-1.7); CALCIUM 8.8 mg/dL (8.5-10.1); CREATININE 1.6 mg/dL (0.6-1.0); POTASSIUM 4.8 mmol/L (3.5-5.1); TOTAL BILIRUBIN 0.7 mg/dL (0.2-1.0); TOTAL PROTEIN 7.9 g/dL (6.4-8.2)
[2021-05-28] MEDS: HYDROcodone/APAP 5/325MG 1 TAB TABLET PO PRN (21:10)
[2021-05-29] MEDS: oxyCODONE IR 5 MG TABLET PO PRN (00:47)
[2021-05-29] MEDS: HEPARIN for SUB-Q USE 5,000 UNIT/ML VIAL. SQ SCH ×4 (00:50→23:27)
[2021-05-29 02:45] VITALS: BP 129/56
[2021-05-29] MEDS: HYDROcodone/APAP 5/325MG 1 TAB TABLET PO PRN (05:50)
[2021-05-29 06:15] LABS: BASO % 0 % (0-3); EOS % 0 % (0-3); HEMATOCRIT 36.1 % (36.0-47.0); HEMOGLOBIN 12.1 g/dL (12.0-15.5); LYMPH # 1.5 x10^3/uL (1.0-4.8); LYMPH % 17 % (24-48); MEAN CORPUSCULAR HEMOGLOBIN 32 pg (25-35); MEAN CORPUSCULAR HGB CONC 33 g/dL (31-37); MEAN CORPUSCULAR VOLUME 96 fL (79-100); MONO # 0.7 x10^3/uL (0.0-1.1); MONO % 7 % (0-9); NEUT # 7.1 x10^3/uL (1.8-7.7); NEUT % 76 % (31-73); PLATELET COUNT 175 x10^3/uL (140-400); RED BLOOD COUNT 3.77 x10^6/uL (3.50-5.40); RED CELL DISTRIBUTION WIDTH 15.8 % (11.5-14.5); WHITE BLOOD COUNT 9.3 x10^3/uL (4.0-11.0)
[2021-05-29 06:30] LABS: CALCIUM 8.6 mg/dL (8.5-10.1); CREATININE 1.4 mg/dL (0.6-1.0); GFR 45.5; POTASSIUM 4.6 mmol/L (3.5-5.1)
[2021-05-29 07:15] VITALS: BP 109/69
[2021-05-29] MEDS: INSULIN LISPRO 300 UNITS/3 ML VIAL. SQ SCH ×5 (08:31→17:20)
--- NOTE | 2021-05-29 08:39 | PDOC ---
[facility] PROGRESS NOTE Date of Service DOS: DATE: 05/29/21 TIME: 08:35 Chief Complaint Chief Complaint S/P left shoulder arthroscopy with biceps tenolysis, subacromial decompression, and distal clavicle resection DM2 HTN CHF History of Present Illness History of Present Illness 05/29: Patient evaluated bedside. She reports continued left shoulder pain, receiving Percocet this morning. She has a history of ambulatory surgeries requiring inpatient stays. Tells me she takes Tresiba at home, 50 units Lantus twice daily, 45 units Humalog for breakfast, for lunch, and 25 units nightly. She also notes that her primary is Dr. Vera. I have asked RN to page Dr. Vera for transfer of care. Vitals/I&O Vitals/I&O: Vital Signs Date Time Temp Pulse Resp B/P (MAP) Pulse Ox O2 Delivery O2 Flow Rate FiO2 05/29/21 07:15 98.0 78 18 109/69 (82) 98 Room Air 98.0 05/28/21 17:50 10.0 I & O 05/28/21 05/28/21 05/29/21 15:00 23:00 07:00 Intake Total 750 ml 240 ml Output Total 25 ml Balance 725 ml 240 ml Physical Exam General: Alert, Oriented X3, Cooperative, mild distress Heart: Regular rate Lungs: Clear Abdomen: Soft, No tenderness Extremities: No cyanosis Skin: No rashes Labs Labs: Laboratory Tests Test 05/28/21 09:18 05/28/21 10:04 05/28/21 13:03 05/28/21 15:08 POC SARS CoV-2 Antigen Negative (NEGATIVE) Glucose (Fingerstick) 149 mg/dL (70-99) 157 mg/dL (70-99) 225 mg/dL (70-99) Test 05/28/21 18:15 05/29/21 05:00 White Blood Count 8.5 x10^3/uL (4.0-11.0) 9.3 x10^3/uL (4.0-11.0) Red Blood Count 4.17 x10^6/uL (3.50-5.40) 3.77 x10^6/uL (3.50-5.40) Hemoglobin 13.2 g/dL (12.0-15.5) 12.1 g/dL (12.0-15.5) Hematocrit 40.1 % (36.0-47.0) 36.1 % (36.0-47.0) Mean Corpuscular Volume 96 fL (79-100) 96 fL (79-100) Mean Corpuscular Hemoglobin 32 pg (25-35) 32 pg (25-35) Mean Corpuscular Hemoglobin Concent 33 g/dL (31-37) 33 g/dL (31-37) Red Cell Distribution Width 15.8 % (11.5-14.5) 15.8 % (11.5-14.5) Platelet Count 182 x10^3/uL (140-400) 175 x10^3/uL (140-400) Neutrophils (%) (Auto) 87 % (31-73) 76 % (31-73) Lymphocytes (%) (Auto) 11 % (24-48) 17 % (24-48) Monocytes (%) (Auto) 1 % (0-9) 7 % (0-9) Eosinophils (%) (Auto) 0 % (0-3) 0 % (0-3) Basophils (%) (Auto) 0 % (0-3) 0 % (0-3) Neutrophils # (Auto) 7.3 x10^3/uL (1.8-7.7) 7.1 x10^3/uL (1.8-7.7) Lymphocytes # (Auto) 1.0 x10^3/uL (1.0-4.8) 1.5 x10^3/uL (1.0-4.8) Monocytes # (Auto) 0.1 x10^3/uL (0.0-1.1) 0.7 x10^3/uL (0.0-1.1) Eosinophils # (Auto) 0.0 x10^3/uL (0.0-0.7) 0.0 x10^3/uL (0.0-0.7) Basophils # (Auto) 0.0 x10^3/uL (0.0-0.2) 0.0 x10^3/uL (0.0-0.2) Sodium Level 140 mmol/L (136-145) 137 mmol/L (136-145) Potassium Level 4.8 mmol/L (3.5-5.1) 4.6 mmol/L (3.5-5.1) Chloride Level 103 mmol/L (98-107) 102 mmol/L (98-107) Carbon Dioxide Level 27 mmol/L (21-32) 29 mmol/L (21-32) Anion Gap 10 (6-14) 6 (6-14) Blood Urea Nitrogen 17 mg/dL (7-20) 17 mg/dL (7-20) Creatinine 1.6 mg/dL (0.6-1.0) 1.4 mg/dL (0.6-1.0) Estimated GFR (Cockcroft-Gault) 39.0 45.5 BUN/Creatinine Ratio 11 (6-20) Glucose Level 272 mg/dL (70-99) 260 mg/dL (70-99) Calcium Level 8.8 mg/dL (8.5-10.1) 8.6 mg/dL (8.5-10.1) Total Bilirubin 0.7 mg/dL (0.2-1.0) Aspartate Amino Transf (AST/SGOT) 23 U/L (15-37) Alanine Aminotransferase (ALT/SGPT) 29 U/L (14-59) Alkaline Phosphatase 118 U/L (46-116) Total Protein 7.9 g/dL (6.4-8.2) Albumin 3.6 g/dL (3.4-5.0) Albumin/Globulin Ratio 0.8 (1.0-1.7) Comment Review of Relevant I have reviewed the following items bimal (where applicable) has been applied. Medications: Current Medications Medications (Trade) Dose Ordered Sig/Priyanka Route PRN Reason Start Time Stop Time Status Last Admin Dose Admin Insulin Human Lispro (HumaLOG VIAL for OP,RR ONLY) 0-10 units PRN Q1HR PRN SQ PER PROTOCOL 05/28/21 09:15 05/29/21 09:14 05/28/21 15:13 Fentanyl Citrate (Fentanyl 2ml Vial) 100 mcg 1X ONCE IVP 05/28/21 11:00 05/28/21 11:01 DC 05/28/21 10:59 Midazolam HCl (Versed) 2 mg 1X ONCE IV 05/28/21 11:00 05/28/21 11:01 DC 05/28/21 10:59 Epinephrine HCl (Adrenalin) 30 mg STK-MED ONCE .ROUTE 05/28/21 11:01 05/28/21 11:01 DC 05/28/21 11:59 Bupivacaine HCl/ Epinephrine Bitart (Sensorcain-Epi 0.5% Kit) 30 ml STK-MED ONCE .ROUTE 05/28/21 11:39 05/28/21 11:39 DC 05/28/21 11:59 Ondansetron HCl (Zofran) 4 mg 1X ONCE IVP 05/28/21 13:15 05/28/21 13:20 DC 05/28/21 13:22 Oxycodone HCl (Roxicodone) 5 mg PRN Q3HRS PRN PO BREAKTHROUGH PAIN 05/28/21 16:45 05/29/21 00:47 Acetaminophen/ Hydrocodone Bitart (Lortab 5/325) 2 tab PRN Q4HRS PRN PO MODERATE PAIN, SEVERE PAIN 05/28/21 16:45 05/29/21 05:50 Oxycodone/ Acetaminophen (Percocet 5/325) 2 tab PRN Q4HRS PRN PO MODERATE PAIN, SEVERE PAIN 05/28/21 16:45 05/29/21 08:24 Heparin Sodium (Porcine) (Heparin Sodium) 5,000 unit Q8HRS SQ 05/28/21 22:00 05/29/21 05:50 Insulin Human Lispro (HumaLOG) 0-9 UNITS TIDWMEALS SQ 05/29/21 08:00 05/29/21 08:31 Justifications for Admission Other Justification HELADIO MARINO MD May 29, 2021 08:39
[2021-05-29] MEDS ORDERED: ERGOCALCIFEROL (VITAMIN D2) 50,000 UNIT CAPSULE. PO SCH (09:00)
[2021-05-29] MEDS ORDERED: INSULIN GLARGINE SYRINGE. SQ SCH (09:00)
[2021-05-29] MEDS ORDERED: LACTULOSE 20 GM/30 ML SOLUTION. PO PRN (09:30)
[2021-05-29] MEDS: FLUTICASONE 50MCG/NASAL SPRAY 16GM BOTTLE. NS SCH (10:00)
[2021-05-29 11:15] VITALS: BP 113/58
[2021-05-29] MEDS ORDERED: NON FORMULARY ITEM (Liraglutide (Victoza 3-Pak) 1.8 MG) SQ SCH (12:00)
[2021-05-29] MEDS ORDERED: INSULIN LISPRO 300 UNITS/3 ML VIAL. SQ SCH (12:00)
[2021-05-29] MEDS: oxyCODONE ER 10 MG TAB.ER.12H PO SCH ×2 (12:37→20:54)
[2021-05-29] MEDS: MECLIZINE HCL 12.5 MG TABLET. PO SCH ×3 (12:38→20:53)
[2021-05-29] MEDS: oxyCODONE/APAP 10/325 1 TAB TABLET PO PRN ×2 (12:38→17:12)
[2021-05-29] MEDS: FUROSEMIDE 40 MG TABLET. PO SCH ×2 (12:39→17:10)
[2021-05-29] MEDS: DICYCLOMINE HCL 10 MG CAPSULE PO SCH ×3 (12:39→20:55)
[2021-05-29] MEDS: VITAMIN B COMPLEX TABLET. PO SCH (12:39)
[2021-05-29] MEDS: DULoxetine HCL 20 MG CAPSULE.DR PO SCH (12:40)
[2021-05-29] MEDS: METOPROLOL SUCC 24HR ER 25 MG TAB.ER.24H. PO SCH (12:41)
[2021-05-29] MEDS: POTASSIUM CHLORIDE 20 MEQ TABLET.ER. PO SCH ×2 (12:41→17:12)
[2021-05-29] MEDS: GABAPENTIN 300 MG CAPSULE. PO SCH ×3 (12:42→20:54)
[2021-05-29] MEDS: PANTOPRAZOLE 40 MG TABLET.DR. PO SCH (12:43)
[2021-05-29 15:04] VITALS: BP 104/74
[2021-05-29 19:25] VITALS: BP 100/45
[2021-05-29] MEDS: FAMOTIDINE 20 MG TABLET. PO SCH (20:54)
[2021-05-29] MEDS: MAGNESIUM OXIDE 400 MG TABLET PO SCH (20:54)
[2021-05-29] MEDS: rOPINIRole 0.25 MG TABLET. PO SCH (20:54)
[2021-05-29] MEDS: ATORVASTATIN CALCIUM 40 MG TABLET. PO SCH (20:54)
[2021-05-29] MEDS ORDERED: INSULIN DEGLUDEC 50 UNIT SQ SCH (21:00)
[2021-05-29] MEDS: INSULIN GLARGINE SYRINGE. SQ SCH (21:02)
--- NOTE | 2021-05-29 21:06 | PN ---
DATE: 05/29/2021 She is postoperative day #1 for left rotator cuff repair. Following the surgery, she was having significant issues with pain control. Today, they are worried about pain control as well as the possibility of having some issues of ambulation secondary to the patient's size and the inability to use the left upper extremity with a cane or a walker at this point. Dressings are intact in the left shoulder. Pain is currently under control and around a 4; however, she continues to have discomfort. She is going to work with physical and occupational therapy today to determine whether she needs to go to a rehab facility for care or whether she can be transferred home with home health. Distal neurovascular status to the left upper extremity is fully intact. DEBBIE/NISH DR: Aaron TID: [id number]
[2021-05-29 23:14] VITALS: BP 118/52
[2021-05-30 03:08] VITALS: BP 139/61
--- NOTE | 2021-05-30 05:46 | NUR ---
Awakened patient to toilet. + hematuria noted. Will collect sample. C/o pain now, 09/26. Medicated. Glucose per Dexcom 228. Humalog 5 units given per request.
[2021-05-30] MEDS: HEPARIN for SUB-Q USE 5,000 UNIT/ML VIAL. SQ SCH ×3 (05:56→21:01)
[2021-05-30 07:44] VITALS: BP 105/57
[2021-05-30] MEDS: DULoxetine HCL 20 MG CAPSULE.DR PO SCH (08:34)
[2021-05-30] MEDS: VITAMIN B COMPLEX TABLET. PO SCH (08:35)
[2021-05-30] MEDS: PANTOPRAZOLE 40 MG TABLET.DR. PO SCH (08:35)
[2021-05-30] MEDS: GABAPENTIN 300 MG CAPSULE. PO SCH ×3 (08:35→20:53)
[2021-05-30] MEDS: FUROSEMIDE 40 MG TABLET. PO SCH ×2 (08:35→12:29)
[2021-05-30] MEDS: oxyCODONE ER 10 MG TAB.ER.12H PO SCH ×2 (08:35→20:54)
[2021-05-30] MEDS: DICYCLOMINE HCL 10 MG CAPSULE PO SCH ×3 (08:36→20:53)
[2021-05-30] MEDS: MECLIZINE HCL 12.5 MG TABLET. PO SCH ×3 (08:36→21:00)
[2021-05-30] MEDS: METOPROLOL SUCC 24HR ER 25 MG TAB.ER.24H. PO SCH (08:36)
[2021-05-30] MEDS: POTASSIUM CHLORIDE 20 MEQ TABLET.ER. PO SCH ×3 (08:36→17:00)
[2021-05-30] MEDS: INSULIN LISPRO 300 UNITS/3 ML VIAL. SQ SCH ×6 (08:47→18:00)
[2021-05-30] MEDS: FLUTICASONE 50MCG/NASAL SPRAY 16GM BOTTLE. NS SCH (09:00)
[2021-05-30] MEDS: oxyCODONE/APAP 10/325 1 TAB TABLET PO PRN ×3 (09:26→18:10)
[2021-05-30] MEDS: INSULIN GLARGINE SYRINGE. SQ SCH ×2 (09:28→20:57)
--- NOTE | 2021-05-30 09:39 | PDOC ---
PROGRESS NOTES Date of Service: DATE: 05/30/21 TIME: 09:39 Subjective Subjective pain bad , feels she cannot go home and take care of herself. Objective Objective Vital Signs Date Time Temp Pulse Resp B/P (MAP) Pulse Ox O2 Delivery O2 Flow Rate FiO2 05/30/21 09:26 20 05/30/21 08:36 79 105/57 05/30/21 08:35 Room Air 05/30/21 07:44 97.6 97 97.6 Intake and Output 05/30/21 07:00 Intake Total 840 ml Output Total 0 ml Balance 840 ml Intake Oral 840 ml Output Stool Total 0 ml # Voids 1 Physical Exam Abdomen: Soft, No tenderness Heart: Regular rate Extremities: No cyanosis General: Alert, Oriented X3, Cooperative, mild distress MUSCULOSKELETAL: Other Skin: No rashes COMMENT dressing left shoulder,lt arm sling. Assessment Assessment IMP:POD #2 S/P left shoulder arthroscopy with biceps tenolysis, subacromial decompression, and distal clavicle resection DM2 HTN CHF obesity. PLAN:pain control slightly better. pt requsting to go to rehab seen by PT/OT MAR screen spoke with behavioral health case manager. Comment Review of Relevant I have reviewed the following items bimal (where applicable) has been applied. Medications Current Medications Atorvastatin Calcium (Lipitor) 80 mg QHS PO Last administered on 05/29/21at 20:54; Start 05/29/21 at 21:00 Dicyclomine HCl (Bentyl) 10 mg TID PO Last administered on 05/30/21at 08:36; Start 05/29/21 at 10:00 Duloxetine HCl (Cymbalta) 20 mg DAILY PO Last administered on 05/30/21 08:34; Start 05/29/21 at 10:00 Famotidine (Pepcid) 20 mg HS PO Last administered on 05/29/21at 20:54; Start 05/29/21 at 21:00 Fluticasone Propionate (Flonase) 2 spray DAILY NS ; Start 05/29/21 at 10:00 Furosemide (Lasix) 40 mg [id number] PO Last administered on 05/30/21 08:35; Start 05/29/21 at 10:00 Gabapentin (Neurontin) 800 mg TID PO Last administered on 05/30/21 08:35; Start 05/29/21 at 10:00 Insulin Glargine (Lantus Syringe) 50 unit BID SQ Last administered on 05/30/21 09:28; Start 05/29/21 at 21:00 Insulin Human Lispro (HumaLOG) 20 units TIDWMEALS SQ ; Start 05/29/21 at 12:00; Stop 05/29/21 at 10:11; Status DC Insulin Human Lispro (HumaLOG) 25 units DAILYWDIN SQ Last administered on 05/29/21at 17:20; Start 05/29/21 at 18:00 Insulin Human Lispro (HumaLOG) 45 units BIDWBKFT/DIVINA SQ Last administered on 05/30/21 08:47; Start 05/29/21 at 12:00 Magnesium Oxide (Magnesium Oxide) 400 mg HS PO Last administered on 05/29/21 20:54; Start 05/29/21 at 21:00 Meclizine HCl (Antivert) 25 mg TID PO Last administered on 05/30/21 08:36; Start 05/29/21 at 09:45 Metoprolol Succinate (Toprol Xl) 25 mg DAILY PO Last administered on 05/30/21 08:36; Start 05/29/21 at 10:00 Non-Formulary Medication (Insulin Degludec (Tresiba)) 50 unit BID SQ ; Start 05/29/21 at 21:00; Status UNV Non-Formulary Medication (Liraglutide (Victoza 3-Calvin)) 1.8 mg DAILYWLUN SQ ; Start 05/29/21 at 12:00; Stop 05/29/21 at 10:23; Status DC Pantoprazole Sodium (Protonix) 40 mg DAILYAC PO Last administered on 05/30/21 08:35; Start 05/29/21 at 11:30 Potassium Chloride (Klor-Con) 20 meq TIDWMEALS PO Last administered on 05/30/21 08:36; Start 05/29/21 at 12:00 Ropinirole HCl (Requip) 0.5 mg HS PO Last administered on 05/29/21 20:54; Start 05/29/21 at 21:00 Vitamin B Complex (Alexander B) 1 tab DAILY PO Last administered on 05/30/21 08:35; Start 4/12/22 at 10:00 Vitals/I & O Vital Sign - Last 24 Hours 05/29/21 05/29/21 05/29/21 05/29/21 11:15 12:37 12:38 12:41 Temp 98.2 98.2 Pulse 80 80 Resp 20 20 20 B/P (MAP) 113/58 (76) 113/58 Pulse Ox 97 O2 Delivery Room Air 05/29/21 05/29/21 05/29/21 05/29/21 15:04 19:25 20:54 23:14 Temp 98.3 98.1 98.3 98.3 98.1 98.3 Pulse 75 68 85 Resp 18 22 18 B/P (MAP) 104/74 (84) 100/45 (63) 118/52 (74) Pulse Ox 96 94 92 O2 Delivery Room Air Room Air Room Air Room Air 05/30/21 05/30/21 05/30/21 05/30/21 00:55 03:08 07:44 08:35 Temp 98.4 97.6 98.4 97.6 Pulse 90 79 Resp 20 20 18 20 B/P (MAP) 139/61 (87) 105/57 (73) Pulse Ox 91 97 O2 Delivery Room Air Room Air Room Air Room Air 05/30/21 05/30/21 08:36 09:26 Pulse 79 Resp 20 B/P (MAP) 105/57 Intake and Output 05/29/21 05/29/21 05/30/21 15:00 23:00 07:00 Intake Total 480 ml 360 ml Output Total 0 ml Balance 480 ml 360 ml 0 ml Justifications for Admission Other Justification OSMAN VERDUZCO MD May 30, 2021 09:39
[2021-05-30 10:54] VITALS: BP 112/46
[2021-05-30 15:00] VITALS: BP 102/54
--- NOTE | 2021-05-30 16:00 | NUR ---
original surgical dressing removed. has a lateral incision on the shoulder plus 2 insertion sits. no active bleeding noted. Aquacel Ag applied after cleansing with Betadine and alcohol. left arm remains in don caitlin sling. she has good pulses sensation and pulses bilaterally. she became dizzy and lightheaded with 2nd rehab session; antvert given. states he pain is a "7" this shift.
--- NOTE | 2021-05-30 19:00 | NUR ---
Sleeping soundly in recliner. Sweating. Glucose checked with Dexcom-105. Denies pain, falls asleep quickly.
[2021-05-30 19:30] VITALS: BP 119/55
[2021-05-30] MEDS: MAGNESIUM OXIDE 400 MG TABLET PO SCH (20:53)
[2021-05-30] MEDS: rOPINIRole 0.25 MG TABLET. PO SCH (20:53)
[2021-05-30] MEDS: ATORVASTATIN CALCIUM 40 MG TABLET. PO SCH (20:54)
[2021-05-30] MEDS: FAMOTIDINE 20 MG TABLET. PO SCH (20:54)
[2021-05-30] MEDS: SENNOSIDES/DOCUSATE 8.6/50MG TABLET. PO SCH (21:00)
[2021-05-30 23:26] VITALS: BP 106/60
[2021-05-31] MEDS: oxyCODONE IR 5 MG TABLET PO PRN (01:45)
[2021-05-31 03:14] VITALS: BP 117/57
[2021-05-31] MEDS: HEPARIN for SUB-Q USE 5,000 UNIT/ML VIAL. SQ SCH ×3 (05:31→21:30)
[2021-05-31] MEDS: HYDROcodone/APAP 5/325MG 1 TAB TABLET PO PRN (05:40)
[2021-05-31] MEDS: INSULIN LISPRO 300 UNITS/3 ML VIAL. SQ SCH ×6 (05:43→17:57)
[2021-05-31 07:00] VITALS: BP_SYST 101; BP_SYST 116; BP_DIAS 55; BP_DIAS 57
[2021-05-31] MEDS: oxyCODONE ER 10 MG TAB.ER.12H PO SCH ×2 (08:03→21:27)
[2021-05-31] MEDS: MECLIZINE HCL 12.5 MG TABLET. PO SCH ×3 (08:06→21:27)
[2021-05-31] MEDS: POTASSIUM CHLORIDE 20 MEQ TABLET.ER. PO SCH ×3 (08:07→17:51)
[2021-05-31] MEDS: METOPROLOL SUCC 24HR ER 25 MG TAB.ER.24H. PO SCH (08:07)
[2021-05-31] MEDS: PANTOPRAZOLE 40 MG TABLET.DR. PO SCH (08:07)
[2021-05-31] MEDS: DICYCLOMINE HCL 10 MG CAPSULE PO SCH ×3 (08:08→21:27)
[2021-05-31] MEDS: FUROSEMIDE 40 MG TABLET. PO SCH ×2 (08:08→15:54)
[2021-05-31] MEDS: VITAMIN B COMPLEX TABLET. PO SCH (08:08)
[2021-05-31] MEDS: GABAPENTIN 300 MG CAPSULE. PO SCH (08:09)
[2021-05-31] MEDS: DULoxetine HCL 20 MG CAPSULE.DR PO SCH (08:14)
[2021-05-31] MEDS: INSULIN GLARGINE SYRINGE. SQ SCH ×2 (08:22→21:31)
[2021-05-31] MEDS: FLUTICASONE 50MCG/NASAL SPRAY 16GM BOTTLE. NS SCH (08:23)
--- NOTE | 2021-05-31 09:28 | PDOC ---
PROGRESS NOTES Date of Service: DATE: 05/31/21 TIME: 09:26 Subjective Subjective doing well , waiting to go to rehab Objective Objective Vital Signs Date Time Temp Pulse Resp B/P (MAP) Pulse Ox O2 Delivery O2 Flow Rate FiO2 05/31/21 08:07 83 129/54 05/31/21 08:03 Room Air 05/31/21 07:00 98.8 18 91 98.8 Intake and Output 05/31/21 07:00 Intake Total 960 ml Balance 960 ml Intake Oral 960 ml # Voids 2 Physical Exam Abdomen: Soft, No tenderness Heart: Regular rate Extremities: No cyanosis General: Alert, Oriented X3, Cooperative, mild distress MUSCULOSKELETAL: Other Skin: No rashes COMMENT dressing left shoulder,lt arm sling. Assessment Assessment IMP:POD #3 S/P left shoulder arthroscopy with biceps tenolysis, subacromial decompression, and distal clavicle resection DM2 HTN CHF obesity. PLAN: To Rehab , when oked by insurence. pain control slightly better. pt requsting to go to rehab seen by PT/OT MAR screen spoke with adult protective caseworker. BS improving Comment Review of Relevant I have reviewed the following items bimal (where applicable) has been applied. Labs Laboratory Tests Test 05/31/21 07:36 Glucose (Fingerstick) 289 mg/dL (70-99) Medications Current Medications Insulin Glargine (Lantus Syringe) 55 unit BID SQ Last administered on 05/31/21at 08:22; Start 05/30/21 at 21:00 Senna/Docusate Sodium (Senna Plus) 1 tab BID PO ; Start 05/30/21 at 21:00 Vitals/I & O Vital Sign - Last 24 Hours 05/30/21 05/30/21 05/30/21 05/30/21 10:00 10:54 12:29 13:00 Temp 98.0 98.0 Pulse 73 Resp 16 20 20 20 B/P (MAP) 112/46 (68) Pulse Ox 95 O2 Delivery Room Air Room Air Room Air 05/30/21 05/30/21 05/30/21 05/30/21 15:00 18:10 18:45 19:30 Temp 97.9 98.2 97.9 98.2 Pulse 64 70 Resp 20 20 20 20 B/P (MAP) 102/54 (70) 119/55 (76) Pulse Ox 95 96 O2 Delivery Room Air Room Air Room Air 05/30/21 05/30/21 05/30/21 05/31/21 20:00 20:54 23:26 00:54 Temp 97.9 97.9 Pulse 79 Resp 20 18 20 B/P (MAP) 106/60 (75) Pulse Ox 92 O2 Delivery Room Air Room Air Room Air Room Air 05/31/21 05/31/21 05/31/21 05/31/21 01:45 02:15 03:14 05:40 Temp 98.0 98.0 Pulse 89 Resp 12 20 18 20 B/P (MAP) 117/57 (77) Pulse Ox 92 O2 Delivery Room Air Room Air Room Air 05/31/21 05/31/21 05/31/21 05/31/21 06:10 07:00 08:03 08:07 Temp 98.8 98.8 Pulse 2 83 Resp 20 18 B/P (MAP) 101/57 (72) 129/54 Pulse Ox 91 O2 Delivery Room Air Room Air Room Air Intake and Output 05/30/21 05/30/21 05/31/21 15:00 23:00 07:00 Intake Total 600 ml 360 ml Balance 600 ml 360 ml Justifications for Admission Other Justification OSMAN VERDUZCO MD May 31, 2021 09:28
--- NOTE | 2021-05-31 09:43 | SNU/HH DC ---
DISCHARGE ORDERS DISCHARGE INFORMATION: DISCHARGE DATE: May 31, 2021 CONDITION ON DISCHARGE: Stable CODE STATUS: Code Status: Full [facility]: SNF STAY <30 DAYS: Yes HOSPICE: HOSPICE: No LTAC: ADMIT TO LTAC: No POST DISCHARGE ORDERS: ACTIVITY ORDERS: No restrictions, Avoid exertion, Walk in house WEIGHT BEARING STATUS: No restrictions, Full weight bearing, As tolerated BATHING ORDERS: Shower-keep dressing dry, No Tub Bath until see WOUND/INCISION CARE: Ice to area for comfort, Keep wound/cast CDI, Change dressing OTHER WOUND INSTRUCTIONS: May change dressings postoperative day number three CHECKS AFTER DISCHARGE: CHECKS AFTER DISCHARGE: Check blood sugar, ac/hs FOLLOW-UP: PHYSICIAN FOLLOW-UP: 10 to 14 days TREATMENT/EQUIPMENT ORDERS: ADAPTIVE EQUIPMENT NEEDED: None Physical Therapy For: Evalulation/Treatment Occupational Therapy For: Evaluation/Treatment DISCHARGE MEDICATIONS: Home Meds Active Scripts Oxycodone/Apap 7.5-325 (PERCOCET 7.5-325 MG TABLET ) 1 Each Tablet, 1 TAB PO QIDPRN PRN for PAIN MDD 4 Tablet(s) for 5 Days, #30 TAB 0 Refills Prov:KARINA STEPHEN Jr. DO 05/28/21 Reported Medications Guaifenesin (MUCINEX) 600 Mg Tablet.er, 600 MG PO PRN BID PRN for CONGESTION, TAB.SR 05/25/21 Duloxetine Hcl (CYMBALTA) 20 Mg Capsule.dr, 20 MG PO DAILY for control depression/anxiety, CAP 05/25/21 Famotidine (PEPCID) 20 Mg Tablet, 20 MG PO HS for control gerd, TAB 05/25/21 Insulin Degludec (Tresiba) 100 Unit/1 Ml Vial, 50 UNIT SQ BID for control diabetes, EACH 05/25/21 Insulin Lispro (HUMALOG) 100 Unit/1 Ml Vial, 25 UNIT SQ DAILYWDIN for control diabetes, EACH 05/25/21 Vitamin B Complex (B COMPLEX) 1 Each Tablet, 1 EACH PO DAILY for suplement, TAB 05/25/21 Ergocalciferol (Vitamin D2) (VITAMIN D2) 50,000 Unit Capsule, 70777 UNIT PO WEEKLY, CAP 10/13/17 Potassium Chloride (POTASSIUM CHLORIDE ) 20 Meq Tablet.er, 20 MEQ PO TID for supplement, TAB.SR 8/27/18 Cetirizine Hcl (ZYRTEC) 10 Mg Tablet, 10 MG PO for allergy, TAB 10/13/17 Metoprolol Succinate (TOPROL XL) 25 Mg Tab.er.24h, 25 MG PO DAILY for FOR HYPERTENSION, #30 TAB 0 Refills 10/13/17 Lactulose (LACTULOSE) 20 Gm/30 Ml Solution, 10 GM PO PRN TID PRN for SEE COMMENTS, MISC 10/13/17 Dicyclomine Hcl (DICYCLOMINE HCL) 10 Mg Capsule, 10 MG PO TID for stomach, CAP 10/13/17 Liraglutide (VICTOZA 3-YANNA) 0.6 Mg/0.1 Ml Pen.injctr, 1.8 MG SQ DAILYWLUN for diabetes, #9 ML 3 Refills 08/05/16 Pantoprazole Sodium (PROTONIX ) 40 Mg Tablet.dr, 40 MG PO DAILY for stomach, TAB 08/05/16 Fluticasone Propionate (Flonase Allergy Relief) 9.9 Ml [place].susp, 1 SPRAYS NS DAILY for allergy, BOTTLE 08/05/16 Oxycodone/Apap 10-325 (PERCOCET 10-325 MG TABLET ) 1 Each Tablet, 1 EACH PO PRN TID PRN for PAIN 05/06/13 Gabapentin (GABAPENTIN ) 300 Mg Capsule, 800 MG PO TID for nerve pain 05/06/13 Ropinirole Hcl (REQUIP) 0.5 Mg Tablet, 0.5 MG PO HS for restless leg 05/06/13 Furosemide (FUROSEMIDE) 40 Mg Tablet, 40 MG PO BID for duiretic 05/06/13 Magnesium Oxide (MAGNESIUM OXIDE) 400 Mg Tablet, 400 MG PO HS for supplement 05/06/13 Meclizine Hcl (MECLIZINE HCL) 25 Mg Tab.chew, 25 MG PO TID for dizziness, TAB.CHEW 05/06/13 Insulin Lispro (HUMALOG) 100 Unit/1 Ml Cartridge, 45 UNIT SQ BIDWBKFT/DIVINA for diabetes 05/06/13 Rosuvastatin Calcium (CRESTOR) 20 Mg Tablet, 20 MG PO HS for cholesterol 05/06/13 Oxycodone Hcl (OXYCONTIN) 80 Mg Tab.er.12h, 20 MG PO PRN Q12HR PRN for PAIN 05/06/13 Discontinued Reported Medications Hydrochlorothiazide (HYDROCHLOROTHIAZIDE TABLET) 50 Mg Tablet, 25 MG PO WEEKLY for DIURETIC, TAB 0 Refills 10/13/17 Lidocaine (Lidocaine PATCH ) 1 Each Adh..patch, 1 EACH TP, PATCH 10/13/17 Tizanidine Hcl (TIZANIDINE HCL) 4 Mg Tablet, 4 MG PO TID PRN for MUSCLE SPASMS, TAB 10/13/17 Losartan Potassium (LOSARTAN POTASSIUM ) 25 Mg Tablet, 25 MG PO DAILY for blood pressure, TAB 10/13/17 Insulin Detemir (LEVEMIR) 100 Unit/1 Ml Vial, 80 UNIT SQ HS for diabetes, VIAL 05/06/13 Trazodone Hcl (TRAZODONE HCL) 50 Mg Tablet, 50 MG PO DAILYWSUP for depression 05/06/13 OSMAN VERDUZCO MD May 31, 2021 09:42
[2021-05-31 11:00] VITALS: BP 116/55
[2021-05-31] MEDS: SENNOSIDES/DOCUSATE 8.6/50MG TABLET. PO SCH ×2 (12:10→21:26)
[2021-05-31] MEDS: oxyCODONE/APAP 10/325 1 TAB TABLET PO PRN (12:22)
[2021-05-31 15:00] VITALS: BP 120/91
[2021-05-31] MEDS: GABAPENTIN 400 MG CAPSULE. PO SCH ×2 (16:08→21:26)
[2021-05-31 19:25] VITALS: BP 117/78
[2021-05-31] MEDS: rOPINIRole 0.25 MG TABLET. PO SCH (21:27)
[2021-05-31] MEDS: ATORVASTATIN CALCIUM 40 MG TABLET. PO SCH (21:27)
[2021-05-31] MEDS: MAGNESIUM OXIDE 400 MG TABLET PO SCH (21:27)
[2021-05-31] MEDS: FAMOTIDINE 20 MG TABLET. PO SCH (21:27)
--- NOTE | 2021-05-31 22:40 | PN ---
DATE: 05/30/2021 She is status post left rotator cuff repair, is here for pain control as well as activity difficulties. At this point, she is ready to be discharged tomorrow. She is to be transferred today to a rehab facility secondary to her being unable to be able to take care of herself at this point. Incisions, however, looked very good. No signs or symptoms of infection, no drainage, no signs or symptoms of significant swelling about the shoulder. There is some pain, but is very much under control at this point. She is orthopedically stable. DEBBIE/JENI/MERCY DR: Aaron TID: [id number]
[2021-05-31 22:48] VITALS: BP 109/44
[2021-06-01 03:00] VITALS: BP 121/51
[2021-06-01] MEDS: HEPARIN for SUB-Q USE 5,000 UNIT/ML VIAL. SQ SCH ×3 (06:12→22:09)
[2021-06-01 07:00] VITALS: BP 106/55
[2021-06-01] MEDS: INSULIN LISPRO 300 UNITS/3 ML VIAL. SQ SCH ×6 (08:00→17:30)
[2021-06-01] MEDS: FLUTICASONE 50MCG/NASAL SPRAY 16GM BOTTLE. NS SCH (09:00)
[2021-06-01] MEDS: VITAMIN B COMPLEX TABLET. PO SCH (09:14)
[2021-06-01] MEDS: DICYCLOMINE HCL 10 MG CAPSULE PO SCH ×3 (09:14→22:01)
[2021-06-01] MEDS: METOPROLOL SUCC 24HR ER 25 MG TAB.ER.24H. PO SCH (09:14)
[2021-06-01] MEDS: GABAPENTIN 400 MG CAPSULE. PO SCH ×3 (09:15→22:00)
[2021-06-01] MEDS: PANTOPRAZOLE 40 MG TABLET.DR. PO SCH (09:15)
[2021-06-01] MEDS: MECLIZINE HCL 12.5 MG TABLET. PO SCH ×3 (09:15→22:01)
[2021-06-01] MEDS: POTASSIUM CHLORIDE 20 MEQ TABLET.ER. PO SCH ×3 (09:15→17:25)
[2021-06-01] MEDS: DULoxetine HCL 20 MG CAPSULE.DR PO SCH (09:15)
[2021-06-01] MEDS: oxyCODONE ER 10 MG TAB.ER.12H PO SCH ×2 (09:15→22:00)
[2021-06-01] MEDS: SENNOSIDES/DOCUSATE 8.6/50MG TABLET. PO SCH ×2 (09:15→22:01)
[2021-06-01] MEDS: FUROSEMIDE 40 MG TABLET. PO SCH ×2 (09:16→14:18)
[2021-06-01] MEDS: INSULIN GLARGINE SYRINGE. SQ SCH ×2 (09:22→22:08)
--- NOTE | 2021-06-01 09:40 | PDOC ---
PROGRESS NOTES Date of Service: DATE: 06/01/21 TIME: 09:39 Subjective Subjective feels good , waiting to go to rehab Objective Objective Vital Signs Date Time Temp Pulse Resp B/P (MAP) Pulse Ox O2 Delivery O2 Flow Rate FiO2 06/01/21 09:15 Room Air 06/01/21 09:14 87 147/76 06/01/21 07:00 98.2 16 92 98.2 Intake and Output 06/01/21 07:00 Intake Total 540 ml Balance 540 ml Intake Oral 540 ml # Voids 3 Physical Exam Abdomen: Soft, No tenderness Heart: Regular rate Extremities: No cyanosis General: Alert, Oriented X3, Cooperative, mild distress MUSCULOSKELETAL: Other Skin: No rashes COMMENT dressing left shoulder,lt arm sling. Assessment Assessment IMP:POD #3 S/P left shoulder arthroscopy with biceps tenolysis, subacromial decompression, and distal clavicle resection DM2 HTN CHF obesity. PLAN:waiting to go to rehab [facility] , when oked by insurance. pain control slightly better. pt requsting to go to rehab seen by PT/OT MAR screen spoke with bilingual case manager. BS improving Comment Review of Relevant I have reviewed the following items bimal (where applicable) has been applied. Labs Laboratory Tests Test 05/31/21 11:19 05/31/21 21:12 Glucose (Fingerstick) 168 mg/dL (70-99) 97 mg/dL (70-99) Medications Current Medications Gabapentin (Neurontin) 800 mg TID PO Last administered on 06/01/21at 09:15; Start 05/31/21 at 14:00 Vitals/I & O Vital Sign - Last 24 Hours 05/31/21 05/31/21 05/31/21 05/31/21 11:00 12:00 12:22 13:00 Temp 98.2 98.2 Pulse 84 Resp 18 B/P (MAP) 116/55 (75) Pulse Ox 98 O2 Delivery Room Air Room Air Room Air Room Air 05/31/21 05/31/21 05/31/21 05/31/21 15:00 19:25 20:00 21:27 Temp 98.4 98.1 98.4 98.1 Pulse 78 63 Resp 16 18 20 B/P (MAP) 120/91 (101) 117/78 (91) Pulse Ox 97 94 O2 Delivery Room Air Room Air Room Air 05/31/21 06/01/21 06/01/21 06/01/21 22:48 02:06 03:00 07:00 Temp 98.3 97.9 98.2 98.3 97.9 98.2 Pulse 83 77 74 Resp 18 16 18 16 B/P (MAP) 109/44 (65) 121/51 (74) 106/55 (72) Pulse Ox 95 94 92 O2 Delivery Room Air Room Air Room Air 06/01/21 06/01/21 09:14 09:15 Pulse 87 B/P (MAP) 147/76 O2 Delivery Room Air Intake and Output 05/31/21 05/31/21 06/01/21 15:00 23:00 07:00 Intake Total 240 ml 300 ml Balance 240 ml 300 ml Justifications for Admission Other Justification OSMAN VERDUZCO MD Jun 01, 2021 09:40
[2021-06-01 11:00] VITALS: BP 107/54
[2021-06-01 15:00] VITALS: BP 116/59
[2021-06-01 19:25] VITALS: BP 107/42
[2021-06-01] MEDS: MAGNESIUM OXIDE 400 MG TABLET PO SCH (22:00)
[2021-06-01] MEDS: FAMOTIDINE 20 MG TABLET. PO SCH (22:00)
[2021-06-01] MEDS: rOPINIRole 0.25 MG TABLET. PO SCH (22:00)
[2021-06-01] MEDS: ATORVASTATIN CALCIUM 40 MG TABLET. PO SCH (22:01)
[2021-06-01 23:08] VITALS: BP 108/48
[2021-06-02] MEDS: HYDROcodone/APAP 5/325MG 1 TAB TABLET PO PRN (02:59)
[2021-06-02 03:01] VITALS: BP 111/54
[2021-06-02 05:56] VITALS: BP 97/47
[2021-06-02] MEDS: HEPARIN for SUB-Q USE 5,000 UNIT/ML VIAL. SQ SCH ×3 (06:20→21:17)
[2021-06-02] MEDS: INSULIN LISPRO 300 UNITS/3 ML VIAL. SQ SCH ×6 (08:00→17:44)
[2021-06-02] MEDS: GABAPENTIN 400 MG CAPSULE. PO SCH ×3 (08:34→21:18)
[2021-06-02] MEDS: MECLIZINE HCL 12.5 MG TABLET. PO SCH ×3 (08:35→21:18)
[2021-06-02] MEDS: FUROSEMIDE 40 MG TABLET. PO SCH ×2 (08:35→14:22)
[2021-06-02] MEDS: DULoxetine HCL 20 MG CAPSULE.DR PO SCH (08:35)
[2021-06-02] MEDS: VITAMIN B COMPLEX TABLET. PO SCH (08:35)
[2021-06-02] MEDS: PANTOPRAZOLE 40 MG TABLET.DR. PO SCH (08:35)
[2021-06-02] MEDS: DICYCLOMINE HCL 10 MG CAPSULE PO SCH ×3 (08:35→21:19)
[2021-06-02] MEDS: SENNOSIDES/DOCUSATE 8.6/50MG TABLET. PO SCH ×2 (08:35→21:18)
[2021-06-02] MEDS: POTASSIUM CHLORIDE 20 MEQ TABLET.ER. PO SCH ×3 (08:36→17:38)
[2021-06-02] MEDS: oxyCODONE ER 10 MG TAB.ER.12H PO SCH ×2 (08:37→21:20)
[2021-06-02] MEDS: FLUTICASONE 50MCG/NASAL SPRAY 16GM BOTTLE. NS SCH (08:45)
[2021-06-02] MEDS: METOPROLOL SUCC 24HR ER 25 MG TAB.ER.24H. PO SCH (09:00)
[2021-06-02] MEDS: INSULIN GLARGINE SYRINGE. SQ SCH ×2 (10:17→21:18)
[2021-06-02 11:00] VITALS: BP 101/46
--- NOTE | 2021-06-02 12:42 | PDOC ---
PROGRESS NOTES Date of Service: DATE: 06/02/21 TIME: 12:40 Subjective Subjective Pt does not want to go to [facility] , want to go to [facility] Objective Objective Vital Signs Date Time Temp Pulse Resp B/P (MAP) Pulse Ox O2 Delivery O2 Flow Rate FiO2 06/02/21 11:00 97.5 71 20 101/46 (64) 91 Room Air 97.5 Intake and Output 06/02/21 07:00 Intake Total 360 ml Balance 360 ml Intake Oral 360 ml # Voids 2 Physical Exam Abdomen: Soft, No tenderness Heart: Regular rate Extremities: No cyanosis General: Alert, Oriented X3, Cooperative, mild distress MUSCULOSKELETAL: Other Skin: No rashes COMMENT dressing left shoulder,lt arm sling. Assessment Assessment IMP:POD #4 S/P left shoulder arthroscopy with biceps tenolysis, subacromial decompression, and distal clavicle resection DM2 HTN CHF obesity. PLAN: pt refusing to go to [facility], she wan to go to [facility]. waiting to go to rehab [facility] , when oked by insurance. pain control slightly better. pt requsting to go to rehab seen by PT/OT MAR screen spoke with rn case mgr. BS improving Comment Review of Relevant I have reviewed the following items bimal (where applicable) has been applied. Labs Laboratory Tests Test 06/01/21 16:58 06/02/21 07:42 06/02/21 11:22 Glucose (Fingerstick) 82 mg/dL (70-99) 166 mg/dL (70-99) 190 mg/dL (70-99) Vitals/I & O Vital Sign - Last 24 Hours 06/01/21 06/01/21 06/01/21 06/01/21 13:15 14:22 15:00 15:00 Temp 97.9 97.9 Pulse 68 Resp 16 B/P (MAP) 116/59 (78) Pulse Ox 91 O2 Delivery Room Air Room Air Room Air Room Air 06/01/21 06/01/21 06/01/21 06/02/21 19:25 20:00 23:08 02:13 Temp 98.1 98.1 98.1 98.1 Pulse 76 83 Resp 18 18 16 B/P (MAP) 107/42 (63) 108/48 (68) Pulse Ox 94 94 O2 Delivery Room Air Room Air Room Air 06/02/21 06/02/21 06/02/21 06/02/21 02:59 03:01 04:02 05:56 Temp 98.2 97.9 98.2 97.9 Pulse 76 75 Resp 18 18 18 20 B/P (MAP) 111/54 (73) 97/47 (64) Pulse Ox 100 93 O2 Delivery Room Air Room Air 06/02/21 06/02/21 08:37 11:00 Temp 97.5 97.5 Pulse 71 Resp 20 B/P (MAP) 101/46 (64) Pulse Ox 91 O2 Delivery Room Air Room Air Intake and Output 06/01/21 06/01/21 06/02/21 15:00 23:00 07:00 Intake Total 360 ml Balance 360 ml Justifications for Admission Other Justification OSMAN VERDUZCO MD Jun 02, 2021 12:42
[2021-06-02 15:00] VITALS: BP 109/45
[2021-06-02 19:00] VITALS: BP 122/60
[2021-06-02] MEDS: ATORVASTATIN CALCIUM 40 MG TABLET. PO SCH (21:18)
[2021-06-02] MEDS: FAMOTIDINE 20 MG TABLET. PO SCH (21:19)
[2021-06-02] MEDS: rOPINIRole 0.25 MG TABLET. PO SCH (21:19)
[2021-06-02] MEDS: MAGNESIUM OXIDE 400 MG TABLET PO SCH (21:19)
[2021-06-02 23:35] VITALS: BP 104/54
[2021-06-03 03:23] VITALS: BP 113/54
[2021-06-03] MEDS: HEPARIN for SUB-Q USE 5,000 UNIT/ML VIAL. SQ SCH ×3 (06:02→22:21)
[2021-06-03 06:32] VITALS: BP 154/55
[2021-06-03] MEDS: VITAMIN B COMPLEX TABLET. PO SCH (08:24)
[2021-06-03] MEDS: DULoxetine HCL 20 MG CAPSULE.DR PO SCH (08:24)
[2021-06-03] MEDS: SENNOSIDES/DOCUSATE 8.6/50MG TABLET. PO SCH ×2 (08:25→22:11)
[2021-06-03] MEDS: DICYCLOMINE HCL 10 MG CAPSULE PO SCH ×3 (08:25→22:12)
[2021-06-03] MEDS: POTASSIUM CHLORIDE 20 MEQ TABLET.ER. PO SCH ×3 (08:25→17:16)
[2021-06-03] MEDS: FUROSEMIDE 40 MG TABLET. PO SCH ×2 (08:25→13:25)
[2021-06-03] MEDS: PANTOPRAZOLE 40 MG TABLET.DR. PO SCH (08:25)
[2021-06-03] MEDS: METOPROLOL SUCC 24HR ER 25 MG TAB.ER.24H. PO SCH (08:25)
[2021-06-03] MEDS: GABAPENTIN 400 MG CAPSULE. PO SCH ×3 (08:25→22:28)
[2021-06-03] MEDS: MECLIZINE HCL 12.5 MG TABLET. PO SCH ×3 (08:25→22:28)
[2021-06-03] MEDS: oxyCODONE ER 10 MG TAB.ER.12H PO SCH ×2 (08:26→22:28)
[2021-06-03] MEDS: INSULIN LISPRO 300 UNITS/3 ML VIAL. SQ SCH ×6 (08:35→17:20)
[2021-06-03] MEDS: FLUTICASONE 50MCG/NASAL SPRAY 16GM BOTTLE. NS SCH (08:36)
[2021-06-03] MEDS: INSULIN GLARGINE SYRINGE. SQ SCH ×2 (09:32→23:00)
[2021-06-03 11:00] VITALS: BP 133/62
--- NOTE | 2021-06-03 11:12 | PDOC ---
IM PROGRESS NOTES- Subjective Subjective No pain or dyspnea. Objective Vitals/I&O Vital Signs Date Time Temp Pulse Resp B/P (MAP) Pulse Ox O2 Delivery O2 Flow Rate FiO2 06/03/21 08:26 92 Room Air 06/03/21 08:25 81 154/55 06/03/21 06:32 98.2 20 98.2 I & O 06/02/21 06/02/21 06/03/21 15:00 23:00 07:00 Intake Total 800 ml Balance 800 ml Physical Exam Physical Exam General Appearance - alert and in no distress Chest - decreased breath sounds at bases Heart - S1 and S2 normal Abdomen - soft, non tender Neurological - alert and oriented Musculoskeletal - generalized weakness Extremities - no edema Labs Laboratory Tests Test 06/02/21 11:22 06/02/21 17:08 06/02/21 21:06 06/03/21 07:36 Glucose (Fingerstick) 190 mg/dL (70-99) H 169 mg/dL (70-99) H 216 mg/dL (70-99) H 227 mg/dL (70-99) H Assessment Assessment IMP: S/P left shoulder arthroscopy with biceps tenolysis, subacromial decompression, and distal clavicle resection DM2 HTN CHF obesity. PLAN[facility]. seen by PT/OT MAR screen Blood sugar is elevated but slowly improving. Plan Plan For more details regarding further plans, please refer to the orders. Justifications for Admission Other Justification YOVNAI CABALLERO MD Jun 03, 2021 11:12
[2021-06-03 15:00] VITALS: BP 106/50
[2021-06-03 19:00] VITALS: BP 101/49
[2021-06-03] MEDS: rOPINIRole 0.25 MG TABLET. PO SCH (22:11)
[2021-06-03] MEDS: ATORVASTATIN CALCIUM 40 MG TABLET. PO SCH (22:11)
[2021-06-03] MEDS: FAMOTIDINE 20 MG TABLET. PO SCH (22:12)
[2021-06-03] MEDS: MAGNESIUM OXIDE 400 MG TABLET PO SCH (22:55)
[2021-06-03 23:24] VITALS: BP 113/45
[2021-06-04 03:00] VITALS: BP 129/72
[2021-06-04] MEDS: HEPARIN for SUB-Q USE 5,000 UNIT/ML VIAL. SQ SCH ×2 (06:31→14:55)
[2021-06-04 07:00] VITALS: BP 122/64
[2021-06-04] MEDS: INSULIN LISPRO 300 UNITS/3 ML VIAL. SQ SCH ×6 (08:00→18:00)
[2021-06-04] MEDS: FLUTICASONE 50MCG/NASAL SPRAY 16GM BOTTLE. NS SCH (08:06)
--- NOTE | 2021-06-04 09:25 | PDOC ---
PROGRESS NOTES Date of Service: DATE: 06/04/21 TIME: 09:25 Subjective Subjective pt feels betetr ,want to go home and do out pt PT/OT Objective Objective Vital Signs Date Time Temp Pulse Resp B/P (MAP) Pulse Ox O2 Delivery O2 Flow Rate FiO2 06/04/21 07:00 98.5 74 18 122/64 (83) 94 Room Air 98.5 06/04/21 02:28 10.0 Intake and Output 06/04/21 07:00 Intake Total 200 ml Balance 200 ml Tube Feeding 200 ml Physical Exam Abdomen: Soft, No tenderness Heart: Regular rate Extremities: No cyanosis General: Alert, Oriented X3, Cooperative, mild distress MUSCULOSKELETAL: Other Skin: No rashes COMMENT dressing left shoulder,lt arm sling. Assessment Assessment IMP: S/P left shoulder arthroscopy with biceps tenolysis, subacromial decompression, and distal clavicle resection DM2 HTN CHF obesity. PLAN:d/c home with home health. [facility] seen by PT/OT spoke with case filler Blood sugar is elevated but slowly improving. rehab consult appreciated. Comment Review of Relevant I have reviewed the following items bimal (where applicable) has been applied. Labs Laboratory Tests Test 06/03/21 11:29 06/03/21 16:52 06/04/21 07:34 Glucose (Fingerstick) 187 mg/dL (70-99) 130 mg/dL (70-99) 143 mg/dL (70-99) Vitals/I & O Vital Sign - Last 24 Hours 06/03/21 06/03/21 06/03/21 06/03/21 11:00 12:26 15:00 19:00 Temp 98.4 98.3 98.0 98.4 98.3 98.0 Pulse 81 80 82 Resp 20 20 20 B/P (MAP) 133/62 (85) 106/50 (68) 101/49 (66) Pulse Ox 94 95 97 O2 Delivery Room Air Room Air Room Air Room Air 06/03/21 06/03/21 06/04/21 06/04/21 19:45 23:24 02:28 03:00 Temp 98.2 97.2 98.2 97.2 Pulse 65 73 Resp 20 20 B/P (MAP) 113/45 (67) 129/72 (91) Pulse Ox 97 98 98 O2 Delivery Room Air Room Air Room Air Room Air O2 Flow Rate 10.0 06/04/21 07:00 Temp 98.5 98.5 Pulse 74 Resp 18 B/P (MAP) 122/64 (83) Pulse Ox 94 O2 Delivery Room Air Intake and Output 06/03/21 06/03/21 06/04/21 15:00 23:00 07:00 Intake Total 200 ml Balance 200 ml Justifications for Admission Other Justification OSMAN VERDUZCO MD Jun 04, 2021 09:25
--- NOTE | 2021-06-04 09:26 | SNU/HH DC ---
DISCHARGE WITH HOME HEALTH DISCHARGE INFORMATION: Discharge Date: Jun 04, 2021 Condition on Discharge: Stable CODE STATUS: Code Status: Full HOME HEALTH: Face to Face: I certify this patient is under my care and that I, or a nurse practitioner or [employer] counter assistant working with me, had a face to face encounter that meets the physician face to face encounter requirements with this patient on []. RN For Eval/Treatment: Yes Physical Therapy For: Evalulation/Treatment Occupational Therapy For: Evaluation/Treatment IMAGING ENGINEER For: Community Resources Pt Meets Homebound Status: Unsteady balance w/ amb, POST DISCHARGE ORDERS: Activity Instructions for Disc: No restrictions, Avoid exertion, Walk in house Weight Bearing Status after Di: No restrictions, Full weight bearing, As tolerated Bathing Instructions: Shower-keep dressing dry, No Tub Bath until see Wound/Incision Care: Ice to area for comfort, Keep wound/cast CDI, Change d ressing Other wound/incision instructi: May change dressings postoperative day number three CHECKS AFTER DISCHARGE: Checks after discharge: Check blood sugar, ac/hs FOLLOW-UP: Follow up with: 10 to 14 days TREATMENT/EQUIPMENT ORDERS: Adaptive Equipment Issued: None CERTIFICATION STATEMENT: Certification Statement: Certification Statement: Based on the above finding, I certify that this patient is confined to the home and needs intermittent longterm care, physical therapy and/or speech therapy, or continues to need occupational therapy.~ This patient is under my care, and I have initiated the establishment of the plan of care.~ This patient will be followed by myself or a community physician who will periodically review the plan of care. Home Meds Active Scripts Oxycodone/Apap 7.5-325 (PERCOCET 7.5-325 MG TABLET ) 1 Each Tablet, 1 TAB PO QIDPRN PRN for PAIN MDD 4 Tablet(s) for 5 Days, #30 TAB 0 Refills Prov:KARINA STEPHEN Jr. DO 05/28/21 Reported Medications Guaifenesin (MUCINEX) 600 Mg Tablet.er, 600 MG PO PRN BID PRN for CONGESTION, TAB.SR 05/25/21 Duloxetine Hcl (CYMBALTA) 20 Mg Capsule.dr, 20 MG PO DAILY for control depression/anxiety, CAP 05/25/21 Famotidine (PEPCID) 20 Mg Tablet, 20 MG PO HS for control gerd, TAB 05/25/21 Insulin Degludec (Tresiba) 100 Unit/1 Ml Vial, 50 UNIT SQ BID for control diabetes, EACH 05/25/21 Insulin Lispro (HUMALOG) 100 Unit/1 Ml Vial, 25 UNIT SQ DAILYWDIN for control diabetes, EACH 05/25/21 Vitamin B Complex (B COMPLEX) 1 Each Tablet, 1 EACH PO DAILY for suplement, TAB 05/25/21 Ergocalciferol (Vitamin D2) (VITAMIN D2) 50,000 Unit Capsule, 43480 UNIT PO WEEKLY, CAP 10/13/17 Potassium Chloride (POTASSIUM CHLORIDE ) 20 Meq Tablet.er, 20 MEQ PO TID for supplement, TAB.SR 10/13/17 Cetirizine Hcl (ZYRTEC) 10 Mg Tablet, 10 MG PO for allergy, TAB 10/13/17 Metoprolol Succinate (TOPROL XL) 25 Mg Tab.er.24h, 25 MG PO DAILY for FOR HYPE RTENSION, #30 TAB 0 Refills 10/13/17 Lactulose (LACTULOSE) 20 Gm/30 Ml Solution, 10 GM PO PRN TID PRN for SEE COMMENTS, MISC 10/13/17 Dicyclomine Hcl (DICYCLOMINE HCL) 10 Mg Capsule, 10 MG PO TID for stomach, CAP 10/13/17 Liraglutide (VICTOZA 3-YANNA) 0.6 Mg/0.1 Ml Pen.injctr, 1.8 MG SQ DAILYWLUN for diabetes, #9 ML 3 Refills 08/05/16 Pantoprazole Sodium (PROTONIX ) 40 Mg Tablet.dr, 40 MG PO DAILY for stomach, TAB 08/05/16 Fluticasone Propionate (Flonase Allergy Relief) 9.9 Ml [place].susp, 1 SPRAYS NS DAILY for allergy, BOTTLE 08/05/16 Oxycodone/Apap 10-325 (PERCOCET 10-325 MG TABLET ) 1 Each Tablet, 1 EACH PO PRN TID PRN for PAIN 05/06/13 Gabapentin (GABAPENTIN ) 300 Mg Capsule, 800 MG PO TID for nerve pain 05/06/13 Ropinirole Hcl (REQUIP) 0.5 Mg Tablet, 0.5 MG PO HS for restless leg 05/06/13 Furosemide (FUROSEMIDE) 40 Mg Tablet, 40 MG PO BID for duiretic 05/06/13 Magnesium Oxide (MAGNESIUM OXIDE) 400 Mg Tablet, 400 MG PO HS for supplement 05/06/13 Meclizine Hcl (MECLIZINE HCL) 25 Mg Tab.chew, 25 MG PO TID for dizziness, TAB.CHEW 05/06/13 Insulin Lispro (HUMALOG) 100 Unit/1 Ml Cartridge, 45 UNIT SQ BIDWBKFT/DIVINA for diabetes 05/06/13 Rosuvastatin Calcium (CRESTOR) 20 Mg Tablet, 20 MG PO HS for cholesterol 05/06/13 Oxycodone Hcl (OXYCONTIN) 80 Mg Tab.er.12h, 20 MG PO PRN Q12HR PRN for PAIN 05/06/13 OSMAN VERDUZCO MD Jun 04, 2021 09:26
[2021-06-04] MEDS: SENNOSIDES/DOCUSATE 8.6/50MG TABLET. PO SCH (09:35)
[2021-06-04] MEDS: VITAMIN B COMPLEX TABLET. PO SCH (09:35)
[2021-06-04] MEDS: METOPROLOL SUCC 24HR ER 25 MG TAB.ER.24H. PO SCH (09:36)
[2021-06-04] MEDS: FUROSEMIDE 40 MG TABLET. PO SCH ×2 (09:37→14:51)
[2021-06-04] MEDS: DICYCLOMINE HCL 10 MG CAPSULE PO SCH ×2 (09:38→14:50)
[2021-06-04] MEDS: GABAPENTIN 400 MG CAPSULE. PO SCH ×2 (09:38→14:50)
[2021-06-04] MEDS: PANTOPRAZOLE 40 MG TABLET.DR. PO SCH (09:38)
[2021-06-04] MEDS: POTASSIUM CHLORIDE 20 MEQ TABLET.ER. PO SCH ×3 (09:38→17:00)
[2021-06-04] MEDS: DULoxetine HCL 20 MG CAPSULE.DR PO SCH (09:39)
[2021-06-04] MEDS: MECLIZINE HCL 12.5 MG TABLET. PO SCH ×2 (09:39→14:50)
[2021-06-04] MEDS: INSULIN GLARGINE SYRINGE. SQ SCH (09:43)
[2021-06-04] MEDS: oxyCODONE ER 10 MG TAB.ER.12H PO SCH (09:52)
[2021-06-04 11:00] VITALS: BP 121/40
[2021-06-04 15:00] VITALS: BP 125/65
--- NOTE | 2021-06-05 00:46 | CONS ---
DATE OF CONSULTATION: 06/04/2021 I saw her at the request of Dr. Vera for rehab evaluation. LOCATION: She is in room 410. HISTORY OF PRESENT ILLNESS: This is a 65-year-old female with known hypertension, diabetes mellitus, congestive heart failure, status post left shoulder arthroscopy with biceps tenolysis, subacromial decompression and distal clavicle resection and mini open rotator cuff repair done on 05/28/2021 for treatment of chronic left shoulder impingement, acromioclavicular joint arthrosis, rotator cuff tear of left shoulder with association of partial biceps tendon tear. Postop, the patient is doing satisfactorily. The patient had even managed climbing 9 steps today. The patient denies any numbness or weakness in the extremities. PAST MEDICAL HISTORY: Also includes hysterectomy, tubal ligation. FAMILY HISTORY: Diabetes mellitus. ALLERGIES: SHE IS KNOWN ALLERGIC TO PENICILLIN, SULFA, ASPIRIN AND LISINOPRIL. The patient had 2 flights of stairs to manage at home. The patient lives with her family. PHYSICAL EXAMINATION: GENERAL: Today revealed a middle-aged female. She is alert, oriented to time, place, person and circumstance and follows commands appropriately. NEUROLOGIC: Moves all 4 extremities voluntarily except her left shoulder is immobilized. The patient had 5/5 grade muscle strength and deep tendon reflexes are 1-2+ and symmetrical with absent ankle jerks and she had equal perception of touch and pinprick sensation bilaterally. She is independent with bed mobility, transfers and up walking using a quad cane in her right hand. ASSESSMENT: The patient is status post left rotator cuff repair done on 05/28/2021 with some self-care limitations. Also, diabetes mellitus with peripheral neuropathy, obesity, congestive heart failure, hypertension. RECOMMENDATIONS: Agree with the plans for home with home health or outpatient followup when medically stable. Dr. Vera, I appreciate asking me to participate in the care of this interesting patient. I have gone over with her proper body mechanics as she is having some lower back area discomfort with localized tenderness to palpation over sacroiliac joint area. KRUNAL/MAYO KWAN: KRUNAL/jerome TID: [id number]
--- NOTE | 2021-06-06 21:41 | PDOC ---
Provider Note Date of Service: DATE: 06/06/21 TIME: 21:40 Provider Note Discharge summary dictated.#[id number]. Justifications for Admission Other Justification OSMAN VEDRUZCO MD Jun 06, 2021 21:41
--- NOTE | 2021-06-06 21:59 | DS ---
DATE OF DISCHARGE: 06/04/2021 REASON FOR ADMISSION TO THE HOSPITAL: Elective admission for left shoulder arthroscopy, subacromial decompression, biceps tenolysis, rotator cuff repair. HOSPITAL COURSE: The patient is a 65-year-old female who had a left rotator cuff tear, seen orthopedic elective admission for repair of the left rotator cuff. After the surgery, the patient had a mini open rotator cuff repair, distal clavicle resection, subacromial decompression, biceps tenolysis, after that she was in lot of pain. The patient already taking narcotic pain medications. She was given IV fentanyl. The patient was admitted to the hospital. The patient initially did not want to go home because severe pain and she lives with her mom who is 100 years old and she was waiting to go to rehab. In the meantime, the patient's insurance company denied rehab admission. The patient ended up staying in the hospital for pain control, physical therapy or rehabilitation. After a week stay in the hospital, the patient finally discharged home with home health. FINAL DIAGNOSES: 1. Left rotator cuff tear. The patient underwent mini open rotator cuff repair, arthroscopy, subacromial decompression, distal clavicle resection. 2. Pain syndrome. 3. Diabetes. 4. Hypertension. 5. Morbid obesity. DISPOSITION: The patient was discharged home with home health, outpatient physical therapy. FRANCES KWAN: Tran TID: [id number]
== END 2021-06-04 18:24 | disposition home health service (06) | DRG 502 ==
LOC: SURG 09:11 → 4 NORTH 16:12 → OBSVTOIN 05-30 11:54
PROVIDERS: ADMIT Orthopaedic Surgery; ATTEND Orthopaedic Surgery
PROC: 0RNK0ZZ Release Left Shoulder Joint, Open Approach (ICD-10-PCS; principal; 2021-05-30)
PROC: 0LN20ZZ Release Left Shoulder Tendon, Open Approach (ICD-10-PCS; 2021-05-30)
PROC: 0MB Bursae and Ligaments, Excision (ICD-10-PCS; 2021-05-30)
PROC: 0PBB0ZZ Excision of Left Clavicle, Open Approach (ICD-10-PCS; 2021-05-30)
PROC: 0LQ20ZZ Repair Left Shoulder Tendon, Open Approach (ICD-10-PCS; 2021-05-30)
DX: M75.102 Unspecified rotator cuff tear or rupture of left shoulder, not specified as traumatic (principal); M75.41 Impingement syndrome of right shoulder; M19.012 Primary osteoarthritis, left shoulder; E11.42 Type 2 diabetes mellitus with diabetic polyneuropathy; E66.9 Obesity, unspecified; I11.0 Hypertensive heart disease with heart failure; I50.9 Heart failure, unspecified; M19.019 Primary osteoarthritis, unspecified shoulder; S46.219A Strain of muscle, fascia and tendon of other parts of biceps, unspecified arm, initial encounter; N18.30 Chronic kidney disease, stage 3 unspecified; Z83.3 Family history of diabetes mellitus; Z90.710 Acquired absence of both cervix and uterus; Z98.51 Tubal ligation status; Z20.822 Contact with and (suspected) exposure to COVID-19; Z88.0 Allergy status to penicillin; Z68.37 Body mass index [BMI] 37.0-37.9, adult
CPT/HCPCS: 36415; 80048; 80053; 82962; 85025; A4452; A4565; A4930; C1713; G0378; G0379; J0171; J1100; J1170; J1644; J1815; J1885; J2250; J2270; J2370; J2405; J2704; J2710; J2795; J3010; J3490; 97110-GO; 97116-GP; 97530-GO; 97535-GO; J8597